=== PATIENT | male | born 1945 | race Caucasian/White ===

== ENCOUNTER 2017-12-28 14:44 | Emergency (ER) | payer MEDICARE, OTHER ==
--- NOTE | 2017-12-28 17:02 | ER Document Report ---
ED Medical Screen (RME) - General Chief Complaint: Bloody Stools Stated Complaint: POSSIBLE BLOOD IN STOOL Time Seen by Provider: 12/28/17 17:01 Notes: Patient states that he takes Xarelto and aspirin has noticed black tarry stool for the last couple of days. Some mild dizziness. States he had this 1 time before and received a colonoscopy. He states they are unable to find the source of bleeding at that time. He denies any abdominal pain. TRAVEL OUTSIDE OF THE [place] IN LAST 30 DAYS: No - Related Data Allergies/Adverse Reactions: clopidogrel bisulfate [From Plavix] Allergy (Verified 12/28/17 14:54) Past Medical History - Social History Chew tobacco use (# tins/day): No Frequency of alcohol use: None Drug Abuse: None - Past Medical History Cardiac Medical History: Reports: Hx Atrial Fibrillation, Hx Coronary Artery Disease, Hx Heart Attack - possible, Hx Hypercholesterolemia, Hx Hypertension, Hx Peripheral Vascular Disease Neurological Medical History: Denies: Hx Seizures Renal/ Medical History: Denies: Hx Peritoneal Dialysis Past Surgical History: Reports: Hx Cholecystectomy - bypass, heart valve, left leg artery, Hx Coronary Artery Bypass Graft, Hx Coronary Stent, Hx Valve Replacement - Immunizations Hx Diphtheria, Pertussis, Tetanus Vaccination: Yes Physical Exam - Vital signs Vitals: Temp Pulse Resp BP Pulse Ox 97.8 F 62 20 116/63 100 12/28/17 15:12 12/28/17 15:12 12/28/17 15:12 12/28/17 15:12 12/28/17 15:12 Course - Vital Signs Vital signs: Temp Pulse Resp BP Pulse Ox 97.8 F 62 20 116/63 100 12/28/17 15:12 12/28/17 15:12 12/28/17 15:12 12/28/17 15:12 12/28/17 15:12
[2017-12-28 17:34] LABS: ABSOLUTE EOSINOPHILS # (AUTO) 0.1 10^3/uL (0.0-0.6); ABSOLUTE LYMPHOCYTES (AUTO) 0.8 10^3/uL (0.5-4.7); ABSOLUTE MONOCYTES (AUTO) 0.6 10^3/uL (0.1-1.4); ABSOLUTE NEUT (AUTO) 3.3 10^3/uL (1.7-8.2); BASOPHILS % (AUTO) 0.6 % (0-2); EOSINOPHILS % (AUTO) 1.8 % (0-6); HEMATOCRIT 32.3 % (37.9-51.0); HEMOGLOBIN 10.9 g/dL (13.5-17.0); LYMPHOCYTES % (AUTO) 16.7 % (13-45); MEAN CORPUSCULAR HEMOGLOBIN 32.4 pg (27.0-33.4); MEAN CORPUSCULAR HGB CONC 33.9 g/dL (32.0-36.0); MEAN CORPUSCULAR VOLUME 96 fl (80-97); MONOCYTES % (AUTO) 12.7 % (3-13); PLATELET COUNT 155 10^3/uL (150-450); RED BLOOD COUNT 3.37 10^6/uL (4.35-5.55); RED CELL DISTRIBUTION WIDTH 14.4 % (11.5-14.0); SEGMENTED NEUTROPHILS % (AUTO) 68.2 % (42-78); TOTAL CELLS COUNTED % (AUTO) 100 %; WHITE BLOOD COUNT 4.8 10^3/uL (4.0-10.5)
[2017-12-28 17:37] LABS: APPEARANCE,URINE CLEAR; BILIRUBIN,URINE NEGATIVE (NEGATIVE); COLOR,URINE STRAW; GLUCOSE, URINE NEGATIVE (NEGATIVE); KETONES,URINE NEGATIVE (NEGATIVE); LEUKOCYTE ESTERASE,URINE NEGATIVE (NEGATIVE); NITRITE,URINE NEGATIVE (NEGATIVE); PROTEIN,URINE NEGATIVE (NEGATIVE); URINE SPECIFIC GRAVITY 1.003; UROBILINOGEN,URINE NEGATIVE mg/dL (<2.0)
[2017-12-28 17:50] LABS: ALANINE AMINOTRANSFERASE 36 U/L (21-72); ALBUMIN 4.2 g/dL (3.5-5.0); ALKALINE PHOSPHATASE 52 U/L (38-126); ANION GAP 11 (5-19); ASPARTATE AMINO TRANSFERASE 22 U/L (17-59); BILIRUBIN,DIRECT 0.4 mg/dL (0.0-0.4); BILIRUBIN,TOTAL 0.7 mg/dL (0.2-1.3); BLOOD UREA NITROGEN 32 mg/dL (7-20); CALCIUM 9.7 mg/dL (8.4-10.2); CARBON DIOXIDE 25 mmol/L (22-30); CHLORIDE 101 mmol/L (98-107); GLUCOSE 71 mg/dL (75-110); POTASSIUM 4.6 mmol/L (3.6-5.0); SODIUM 136.6 mmol/L (137-145); TOTAL PROTEIN 6.8 g/dL (6.3-8.2)
--- NOTE | 2017-12-28 20:01 | ER Document Report ---
ED General - General Chief Complaint: Bloody Stools Stated Complaint: POSSIBLE BLOOD IN STOOL Time Seen by Provider: 12/28/17 17:01 Notes: Patient is a 72 year old male with a past medical history of atrial fibrillation , hypertension, and prior upper GI bleed, currently anticoagulated chronically on rivaroxaban who presents with 3-4 days of melanotic stools. Patient reports that each time he has gone to the bathroom he has noted that it appears like tar. He states this is similar to when he had an upper GI bleed in the past. He states on that instance 3 or 4 years ago they were unable to locate the source of the bleeding despite colonoscopy, endoscopy, and tagged red blood cell study at [facility]. He has not had a recurrence of symptoms since that time. He has been taking all medications as prescribed which does include both rivaroxaban and aspirin. He denies any abdominal pain, hematemesis , or vomiting. Nothing seemed to improve or worsen his symptoms. He notes that he has had some mild exertional fatigue and dyspnea for approximately 1 week and does feel that the symptoms may be correlated. He denies any current shortness of breath, chest pain, headache, neck pain or altered mental status. He has not seen his primary care doctor regarding these concerns. TRAVEL OUTSIDE OF THE [place] IN LAST 30 DAYS: No - Related Data Allergies/Adverse Reactions: clopidogrel bisulfate [From Plavix] Allergy (Verified 12/28/17 14:54) Past Medical History - General Information source: Patient - Social History Smoking Status: Former Smoker Chew tobacco use (# tins/day): No Frequency of alcohol use: None Drug Abuse: None Lives with: Spouse/Significant other Family History: Reviewed & Not Pertinent Patient has suicidal ideation: No Patient has homicidal ideation: No - Past Medical History Cardiac Medical History: Reports: Hx Atrial Fibrillation, Hx Coronary Artery Disease, Hx Heart Attack - possible, Hx Hypercholesterolemia, Hx Hypertension, Hx Peripheral Vascular Disease Neurological Medical History: Denies: Hx Seizures Renal/ Medical History: Denies: Hx Peritoneal Dialysis Past Surgical History: Reports: Hx Cholecystectomy - bypass, heart valve, left leg artery, Hx Coronary Artery Bypass Graft, Hx Coronary Stent, Hx Valve Replacement - Immunizations Hx Diphtheria, Pertussis, Tetanus Vaccination: Yes Hx Pneumococcal Vaccination: 10/19/12 Review of Systems - Review of Systems Notes: Constitutional: Negative for fever. HENT: Negative for sore throat. Eyes: Negative for visual changes. Cardiovascular: Negative for chest pain. Respiratory: Positive for intermittent shortness of breath Gastrointestinal: Positive for melanotic stools Genitourinary: Negative for dysuria. Musculoskeletal: Negative for back pain. Skin: Negative for rash. Neurological: Negative for headaches, weakness or numbness. 10 point ROS negative except as marked above and in HPI. Physical Exam - Vital signs Vitals: Temp Pulse Resp BP Pulse Ox 97.8 F 62 20 116/63 100 12/28/17 15:12 12/28/17 15:12 12/28/17 15:12 12/28/17 15:12 12/28/17 15:12 Interpretation: Normal Notes: PHYSICAL EXAMINATION: GENERAL: Well-appearing, well-nourished and in no acute distress. HEAD: Atraumatic, normocephalic. EYES: Pupils equal round and reactive to light, extraocular movements intact, sclera anicteric, conjunctiva are normal. ENT: nares patent, oropharynx clear without exudates. Moist mucous membranes. NECK: Normal range of motion, supple without lymphadenopathy LUNGS: Breath sounds clear to auscultation bilaterally and equal. No wheezes rales or rhonchi. HEART: Regular rate and rhythm without murmurs ABDOMEN: Soft, nontender, normoactive bowel sounds. No guarding, no rebound. No masses appreciated. Rectal: Melanotic stool. No masses or lesions. EXTREMITIES: Normal range of motion, no pitting or edema. No cyanosis. NEUROLOGICAL: No focal neurological deficits. Moves all extremities spontaneously and on command. PSYCH: Normal mood, normal affect. SKIN: Warm, Dry, normal turgor, no rashes or lesions noted. Course - Re-evaluation Re-evalutation: 12/28/17 19:59 Patient presents with signs and symptoms consistent with an upper GI bleed as he does have melanotic stool here in the emergency department that is guaiac positive as well as mild anemia with hemoglobin of 10.3. Hemodynamically within normal limits, otherwise well in appearance and in no acute distress. No hematemesis. However given the patient is anemic, symptomatic from his anemia, has active melanotic stool the emergency department and is anticoagulated on a factor Xa inhibitor, he will require transfer for a an upper endoscopy. I contacted [facility] for transfer and awaiting callback. 12/28/17 20:42 Patient has been accepted for transfer by Dr.Alan Monson at [facility]. Remains hemodynamically within normal limits. Awaiting transfer. 12/28/17 21:27 Patient continues to do well, vitals remain within acceptable limits. Patient has a bed and we are waiting for transfer. - Vital Signs Vital signs: Temp Pulse Resp BP Pulse Ox 97.8 F 62 14 178/68 H 96 12/28/17 15:12 12/28/17 15:12 12/28/17 21:09 12/28/17 21:09 12/28/17 21:09 - Laboratory Result Diagrams: 12/28/17 17:10 12/28/17 17:10 Laboratory results interpreted by me: 12/28/17 12/28/17 17:10 17:10 RBC 3.37 L Hgb 10.9 L Hct 32.3 L RDW 14.4 H Sodium 136.6 L BUN 32 H Est GFR (Non-Af Amer) 59 L Glucose 71 L Discharge - Discharge Clinical Impression: Upper GI bleed, Chronic anticoagulation, Acute blood loss anemia Condition: Fair Disposition: [facility]
[2017-12-28 20:38] VITALS: BP 178/68
== END 2017-12-28 22:40 | disposition short-term general hospital (02) ==
LOC: ER 14:44
DX: K92.2 Gastrointestinal hemorrhage, unspecified (principal); D68.318 Other hemorrhagic disorder due to intrinsic circulating anticoagulants, antibodies, or inhibitors; D62 Acute posthemorrhagic anemia; I48.91 Unspecified atrial fibrillation; I10 Essential (primary) hypertension
CPT/HCPCS: 36415; 80053; 81001; 82272; 85025; 99285

== ENCOUNTER 2020-06-16 08:55 | Inpatient (IN) | payer MEDICARE, OTHER ==
[2020-06-16 09:31] LABS: HEMATOCRIT 31.5 % (37.9-51.0); HEMOGLOBIN 10.7 g/dL (13.5-17.0); MEAN CORPUSCULAR HEMOGLOBIN 28.5 pg (27.0-33.4); MEAN CORPUSCULAR VOLUME 84 fl (80-97); PLATELET COUNT 297 10^3/uL (150-450); RED BLOOD COUNT 3.75 10^6/uL (4.35-5.55); RED CELL DISTRIBUTION WIDTH 15.8 % (11.5-14.0); WHITE BLOOD COUNT 12.1 10^3/uL (4.0-10.5)
[2020-06-16] MEDS ORDERED: DILTIAZEM HCL/D5W 125 MG/125 ML RTUINJ IV PRN (09:31)
[2020-06-16] MEDS ORDERED: ACETAMINOPHEN 325 MG TABLET PO ONE (09:36)
--- NOTE | 2020-06-16 09:37 | RADIOLOGY REPORT (SQ) ---
EXAM DESCRIPTION: CHEST SINGLE VIEW IMAGES COMPLETED DATE/TIME: 06/16/2020 9:20 am REASON FOR STUDY: SOB COMPARISON: Two-view chest 10/07/2014 EXAM PARAMETERS: NUMBER OF VIEWS: One view. TECHNIQUE: Single frontal radiographic view of the chest acquired. RADIATION DOSE: NA LIMITATIONS: None. FINDINGS: LUNGS AND PLEURA: Diffuse airspace disease is seen throughout the right lung worrisome for pneumonia. Trace pleural effusion may be present along the right lateral costophrenic sulcus. No right-sided pneumothorax. Left lung well inflated and clear. No left pleural effusion or pneumothorax. Calcified granuloma left medial lung base unchanged from 2014. MEDIASTINUM AND HILAR STRUCTURES: Right hilum not well seen HEART AND VASCULAR STRUCTURES: Post sternotomy for CABG. Left atrial appendage clip. No cardiomegal y BONES: No acute findings. HARDWARE: Dorsal column stimulator electrodes over the lower thoracic spine OTHER: No other significant finding. IMPRESSION: Diffuse right-sided lung parenchymal consolidation with trace right pleural effusion. F indings are worrisome for pneumonia. TECHNICAL DOCUMENTATION: JOB ID: [id number] 2010 [employer]- All Rights Reserved Reading location - IP/workstation name: [email or web address]
[2020-06-16 09:39] LABS: ALBUMIN 2.6 g/dL (3.5-5.0); ALKALINE PHOSPHATASE 144 U/L (38-126); ANION GAP 11 (5-19); ASPARTATE AMINO TRANSFERASE 107 U/L (17-59); BILIRUBIN,DIRECT 2.8 mg/dL (0.0-0.4); BILIRUBIN,TOTAL 3.8 mg/dL (0.2-1.3); BLOOD UREA NITROGEN 63 mg/dL (7-20); CALCIUM 8.2 mg/dL (8.4-10.2); CARBON DIOXIDE 26 mmol/L (22-30); CHLORIDE 94 mmol/L (98-107); GLUCOSE 79 mg/dL (75-110); POTASSIUM 3.7 mmol/L (3.6-5.0); TOTAL PROTEIN 5.4 g/dL (6.3-8.2)
[2020-06-16] MEDS ORDERED: LEVOFLOXACIN 750 MG/D5W RTU 750 MG/150 ML RTUPB IV ONE (09:39)
[2020-06-16] MEDS ORDERED: NORMAL SALINE 1000 ML 1,000 ML IV ONE ×2 (09:50→10:14)
--- NOTE | 2020-06-16 09:50 | ER Document Report ---
Entered by DARLYN FRAGA SCRIBE 06/16/20929 Acting as scribe for:EDUARDO REYNOSO MD ED Respiratory Problem - General Chief Complaint: Breathing Difficulty Stated Complaint: DIFFICULTY BREATHING Time Seen by Provider: 06/16/20 09:17 Information source: Patient Notes: This 75 year old male patient presents to the emergency department today with complaints of shortness of breath for one week. Patient has had a cough and he states he has been coughing up blood. Patient is hypoxic here with a pulse ox of 88% on 6L via nasal cannula. Patient has an extensive cardiopulmonary history with diagnoses of atrial fibrillation, coronary artery disease, possible [place]. Hypertension. Hyperlipid emia. Peripheral vascular disease. COPD. Coronary artery bypass grafting, coronary artery stenting, possible heart valve replacement. Patient reports he has had thoracentesis 3 times at [facility], he does not remember which side of the chest this was done on. TRAVEL OUTSIDE OF THE [place] IN LAST 30 DAYS: No - HPI Patient complains to provider of: Cough, Short of breath Onset: Last week Duration: Worse/persistent Cough: Productive Sputum color: Red (blood) - Related Data Allergies/Adverse Reactions: aspirin Allergy (Verified 06/16/20 09:14) clopidogrel bisulfate [From Plavix] Allergy (Verified 06/16/20 09:14) Past Medical History - General Information source: Patient - Social History Smoking Status: Former Smoker Cigarette use (# per day): No Chew tobacco use (# tins/day): No Smoking Education Provided: No Frequency of alcohol use: None Drug Abuse: None Lives with: Family Family History: Reviewed & Not Pertinent - Past Medical History Cardiac Medical History: Reports: Hx Atrial Fibrillation, Hx Coronary Artery Disease, Hx Heart Attack - possible, Hx Hypercholesterolemia, Hx Hypertension, Hx Peripheral Vascular Disease Neurological Medical History: Denies: Hx Seizures Renal/ Medical History: Denies: Hx Peritoneal Dialysis Past Surgical History: Reports: Hx Cholecystectomy - bypass, heart valve, left leg artery, Hx Coronary Artery Bypass Graft, Hx Coronary Stent, Hx Valve Replacement - Immunizations Hx Diphtheria, Pertussis, Tetanus Vaccination: Yes Hx Pneumococcal Vaccination: 10/19/12 Review of Systems - Review of Systems Constitutional: Weakness EENT: No symptoms reported Cardiovascular: No symptoms reported Respiratory: See HPI, Cough, Hemoptysis, Short of breath Gastrointestinal: Poor appetite, Poor fluid intake Genitourinary: No symptoms reported Musculoskeletal: No symptoms reported Skin: No symptoms reported Hematologic/Lymphatic: No symptoms reported Neurological/Psychological: No symptoms reported -: Yes All other systems reviewed and negative Physical Exam - Vital signs Vitals: Resp Pulse Ox 22 H 93 06/16/20 08:56 06/16/20 08:56 - Notes Notes: Physical Exam: General: Alert, appears short of breath. HEENT: Normocephalic. Atraumatic. PERRL. Extraocular movements intact. Oropharynx clear. Neck: Supple. Non-tender. Respiratory: Severe respiratory distress, tachypneic, retracting. Clear breath sounds on the left, right sided nearly absent breath sounds. Cardiovascular: Regular rate and rhythm. Abdominal: Normal Inspection. Non-tender. No distension. Normal Bowel Sounds. Back: No gross abnormalities. Extremities: Moves all four extremities. Upper extremities: Normal inspection. Normal ROM. Lower extremities: Minimal RLE edema, no LLE edema. Normal ROM. Neurological: Normal cognition. AAOx4. Normal speech. Psychological: Normal affect. Normal Mood. Skin: Warm. Dry. Normal color. Course - Re-evaluation Re-evalutation: 06/16/20 09:38 While speaking with the patient trying to get more history, he coughed up some very thick yellow-turcios sputum into an emesis bag and this was collected for analysis. 06/16/20 09:57 Patient was placed on BiPAP, and he seems to be tolerating this quite well. Previously he was pulling off his nonrebreather mask. At this time his oxygen saturation is up to 95%, heart rate is 140 and fluid bolus and Cardizem are being started at this time. He is also receiving IV antibiotics of Levaquin. He was also given Tylenol for his fever. 06/16/20 11:14 The patient was evaluated during the global COVID-19 pandemic and that diagnosis was suspected/considered upon their initial presentation. Their evaluation, treatment and testing was consistent with current guidelines for patients who present with complaints or symptoms that may be related to COVID-19. - Vital Signs Vital signs: Temp Pulse Resp BP Pulse Ox 98.7 F 79 30 H 115/79 97 06/16/20 10:56 06/16/20 14:29 06/16/20 14:29 06/16/20 14:00 06/16/20 14:29 - Laboratory Result Diagrams: 06/16/20 09:00 06/16/20 09:00 Laboratory results interpreted by me: 06/16/20 06/16/20 06/16/20 09:00 09:00 09:00 WBC 12.1 H RBC 3.75 L Hgb 10.7 L Hct 31.5 L RDW 15.8 H Seg Neuts % (Manual) 97 H Band Neutrophils % 2 L Lymphocytes % (Manual) 0 L Monocytes % (Manual) 1 L Abs Neuts (Manual) 12.0 H Abs Lymphs (Manual) 0.0 L Sodium 130.5 L Chloride 94 L BUN 63 H Creatinine 1.32 H Est GFR (MDRD) Non-Af 53 L Lactic Acid 2.3 H Calcium 8.2 L Ferritin Total Bilirubin 3.8 H Direct Bilirubin 2.8 H AST 107 H ALT 52 H Alkaline Phosphatase 144 H Lactate Dehydrogenase Total Protein 5.4 L Albumin 2.6 L 06/16/20 06/16/20 09:00 09:10 WBC RBC Hgb Hct RDW Seg Neuts % (Manual) Band Neutrophils % Lymphocytes % (Manual) Monocytes % (Manual) Abs Neuts (Manual) Abs Lymphs (Manual) Sodium Chloride BUN Creatinine Est GFR (MDRD) Non-Af Lactic Acid Calcium Ferritin 494.00 H Total Bilirubin Direct Bilirubin AST ALT Alkaline Phosphatase Lactate Dehydrogenase 318 H Total Protein Albumin - Diagnostic Test Radiology reviewed: Image reviewed, Reports reviewed - Chest x-ray shows diffuse right-sided lung parenchymal consolidation with trace pleural effusion. - EKG Interpretation by Me EKG shows normal: [place], Intervals, QRS Complexes, ST-T Waves Rate: Tachycardia - 171 Rhythm: A.Fib [place]/QRS: Left axis deviation When compared to previous EKG there are: Changes noted - Consults Dr. Rodriguez Time consulted: 09:27 Consulted provider: will come to ER Critical Care Note - Critical Care Note Total time excluding time spent on procedures (mins): 45 Comments: At least 45 minutes spent evaluating and treating this critically ill patient. Time was spent with exam, difficulty obtaining history. Reviewing recent and older medical records. Multiple interventions and reassessments for response. Phone calls to the ICU attending for evaluation and admission to the intensive care unit. The patient was extremely hypoxic, had near total consolidation of his right lung, had atrial fibrillation with a heart rate in the 1 50-1 60 range much of the time while he remained hypotensive, a little confused and resistant to keeping his BiPAP on. Discharge - Discharge Clinical Impression: Atrial fibrillation with rapid ventricular response, Hypoxia Pneumonia Qualifiers: Pneumonia type: due to unspecified organism Laterality: right Lung location: lower lobe of lung Qualified Code(s): J18.9 - Pneumonia, unspecified organism Fever Qualifiers: Fever type: unspecified Qualified Code(s): R50.9 - Fever, unspecified Hypotension Qualifiers: Hypotension type: unspecified hypotension type Qualified Code(s): I95.9 - Hypotension, unspecified Condition: Serious Disposition: ADMITTED INPATIENT Admitting Provider: Jennifer (Reconciliation Specialist) Unit Admitted: ICU I personally performed the services described in the documentation, reviewed and edited the documentation which was dictated to the scribe in my presence, and it accurately records my words and actions.
[2020-06-16 10:16] LABS: ABSOLUTE MONOCYTES # (MANUAL) 0.1 10^3/uL (0.1-1.4); BAND NEUTROPHILS % (MANUAL) 2 % (3-5); BASOPHILS % (MANUAL) 0 % (0-2); EOSINOPHILS % (MANUAL) 0 % (0-6); LYMPHOCYTES % (MANUAL) 0 % (13-45); MONOCYTES % (MANUAL) 1 % (3-13); SEGMENTED NEUTROPHILS % (MAN) 97 % (42-78); TOTAL CELLS COUNTED 100
[2020-06-16 10:17] LABS: ANISOCYTOSIS SLIGHT; OVALOCYTES SLIGHT; PLATELET COMMENT ADEQUATE
[2020-06-16 10:30] LABS: VENOUS BLOOD BASE EXCESS 1.6 mmol/L; VENOUS BLOOD HCO3 26.1 mmol/L (20-32); VENOUS BLOOD PCO2 40.8 mmHg (35-63); VENOUS BLOOD PH 7.42 (7.30-7.42)
[2020-06-16] MEDS ORDERED: LORAZEPAM INJ 2 MG/1 ML VIAL IV ONE (10:33)
[2020-06-16] MEDS ORDERED: GLUCAGON,HUMAN RECOMB 1 MG INJ SUBCUT PRN (13:10)
[2020-06-16] MEDS ORDERED: DEXTROSE 50%-WATER 25 GM/50 ML DISP.SYRIN IV PRN ×2 (13:10)
[2020-06-16] MEDS ORDERED: DEXTROSE 40% GEL 15 GM TUBE PO PRN ×2 (13:10)
[2020-06-16] MEDS ORDERED: DEXMEDETOMIDINE IN 0.9 % NACL 400 MCG/100 ML RTUPB IV ONE (13:10)
[2020-06-16] MEDS: DEXMEDETOMIDINE IN 0.9 % NACL 400 MCG/100 ML RTUPB IV PRN (13:20)
[2020-06-16 13:48] LABS: ARTERIAL BLOOD BASE EXCESS -2.1 mmol/L; ARTERIAL BLOOD FIO2 50%; ARTERIAL BLOOD H2CO3 0.86 mmol/L (1.05-1.35); ARTERIAL BLOOD HCO3 20.5 mmol/L (20-24); ARTERIAL BLOOD O2 SATURATION 97.5 % (94-98); ARTERIAL BLOOD PCO2 28.5 mmHg (35-45); ARTERIAL BLOOD PH 7.48 (7.35-7.45); ARTERIAL BLOOD PO2 89.7 mmHg (80-100); ARTERIAL BLOOD TOTAL CO2 21.4 mmol/L (23-27)
[2020-06-16] MEDS: IPRATROPIUM/ALBUTEROL 0.5-2.5 MG/3 ML AMPUL NEB SCH ×2 (14:29→20:43)
[2020-06-16 14:46] LABS: APPEARANCE,URINE CLOUDY; BILIRUBIN,URINE NEGATIVE (NEGATIVE); COLOR,URINE AMBER; GLUCOSE, URINE NEGATIVE (NEGATIVE); KETONES,URINE NEGATIVE (NEGATIVE); LEUKOCYTE ESTERASE,URINE NEGATIVE (NEGATIVE); NITRITE,URINE NEGATIVE (NEGATIVE); PROTEIN,URINE 100 mg/dL (NEGATIVE); URINE SPECIFIC GRAVITY 1.019
[2020-06-16] MEDS: ENOXAPARIN SODIUM INJ 40 MG/0.4 ML DISP.SYRIN SUBCUT SCH (18:12)
[2020-06-16] MEDS: DILTIAZEM HCL 240 MG CAPSULE.CR PO SCH (18:13)
--- NOTE | 2020-06-16 19:00 | EKG REPORT ---
SEVERITY:- ABNORMAL ECG - SUPRAVENTRICULAR TACHYCARDIA LAD, CONSIDER LAFB OR INFERIOR INFARCT : Confirmed by: Elis Terry MD 16-Jun-2020 19:00:23
[2020-06-16 20:31] LABS: ARTERIAL BLOOD H2CO3 0.81 mmol/L (1.05-1.35); ARTERIAL BLOOD HCO3 20.2 mmol/L (20-24); ARTERIAL BLOOD O2 SATURATION 91.9 % (94-98); ARTERIAL BLOOD PCO2 26.9 mmHg (35-45); ARTERIAL BLOOD PH 7.49 (7.35-7.45); ARTERIAL BLOOD PO2 55.9 mmHg (80-100); ARTERIAL BLOOD TOTAL CO2 21.1 mmol/L (23-27)
[2020-06-16 20:32] LABS: ARTERIAL BLOOD FIO2 50%
[2020-06-16] MEDS ORDERED: FUROSEMIDE INJ/PF 40 MG/4 ML SDV IV ONE (21:55)
[2020-06-16] MEDS ORDERED: FUROSEMIDE INJ/PF 40 MG/4 ML SDV ONE (22:01)
[2020-06-16] MEDS: GUAIFENESIN 600 MG TABLET.SA PO SCH (22:08)
[2020-06-16] MEDS: DULOXETINE HCL 30 MG CAPSULE.DR PO SCH (22:08)
[2020-06-16] MEDS: DOXAZOSIN MESYLATE 2 MG TABLET PO SCH (22:09)
[2020-06-16] MEDS: HYDRALAZINE HCL 50 MG TABLET PO SCH (22:09)
[2020-06-16] MEDS: METHYLPREDNISOLONE INJ 40 MG/1 ML SDV IV SCH (22:09)
[2020-06-17] MEDS: IPRATROPIUM/ALBUTEROL 0.5-2.5 MG/3 ML AMPUL NEB SCH ×6 (01:00→21:10)
[2020-06-17] MEDS: PANTOPRAZOLE SODIUM 40 MG TABLET.DR PO SCH (05:18)
[2020-06-17] MEDS: HYDRALAZINE HCL 50 MG TABLET PO SCH ×3 (05:18→21:54)
[2020-06-17] MEDS: DULOXETINE HCL 30 MG CAPSULE.DR PO SCH ×3 (05:18→21:54)
[2020-06-17 06:49] LABS: HEMATOCRIT 25.8 % (37.9-51.0); HEMOGLOBIN 8.8 g/dL (13.5-17.0); MEAN CORPUSCULAR HEMOGLOBIN 28.5 pg (27.0-33.4); MEAN CORPUSCULAR HGB CONC 33.9 g/dL (32.0-36.0); MEAN CORPUSCULAR VOLUME 84 fl (80-97); PLATELET COUNT 174 10^3/uL (150-450); RED BLOOD COUNT 3.08 10^6/uL (4.35-5.55); RED CELL DISTRIBUTION WIDTH 15.8 % (11.5-14.0); WHITE BLOOD COUNT 5.3 10^3/uL (4.0-10.5)
[2020-06-17 08:02] LABS: ANION GAP 14 (5-19); BLOOD UREA NITROGEN 65 mg/dL (7-20); CALCIUM 7.8 mg/dL (8.4-10.2); CARBON DIOXIDE 20 mmol/L (22-30); CHLORIDE 100 mmol/L (98-107); CHOLESTEROL 51.72 mg/dL (0-200); GLUCOSE 96 mg/dL (75-110); POTASSIUM 3.4 mmol/L (3.6-5.0); TRIGLYCERIDES 112 mg/dL (<150)
[2020-06-17 08:23] LABS: DIRECT LDL < 30 mg/dL (<100)
[2020-06-17 08:40] LABS: ABSOLUTE LYMPHOCYTES# (MANUAL) 0.1 10^3/uL (0.5-4.7); BAND NEUTROPHILS % (MANUAL) 4 % (3-5); BASOPHILS % (MANUAL) 0 % (0-2); EOSINOPHILS % (MANUAL) 0 % (0-6); LYMPHOCYTES % (MANUAL) 2 % (13-45); MONOCYTES % (MANUAL) 0 % (3-13); SEGMENTED NEUTROPHILS % (MAN) 94 % (42-78); TOTAL CELLS COUNTED 100
[2020-06-17 08:41] LABS: ANISOCYTOSIS 1+; BURR CELLS 1+; OVALOCYTES 1+; PLATELET COMMENT ADEQUATE
[2020-06-17] MEDS: DEXMEDETOMIDINE IN 0.9 % NACL 400 MCG/100 ML RTUPB IV PRN (08:55)
[2020-06-17] MEDS: GUAIFENESIN 600 MG TABLET.SA PO SCH ×2 (09:35→21:54)
[2020-06-17] MEDS: FUROSEMIDE 20 MG TABLET PO SCH (09:36)
[2020-06-17] MEDS: METHYLPREDNISOLONE INJ 40 MG/1 ML SDV IV SCH ×2 (09:36→21:54)
[2020-06-17] MEDS: DILTIAZEM HCL 240 MG CAPSULE.CR PO SCH (09:36)
[2020-06-17] MEDS: ENOXAPARIN SODIUM INJ 40 MG/0.4 ML DISP.SYRIN SUBCUT SCH (09:37)
[2020-06-17] MEDS: LEVOFLOXACIN 750 MG/D5W RTU 750 MG/150 ML RTUPB IV SCH (09:37)
--- NOTE | 2020-06-17 09:53 | CRITICAL CARE ADMISSION REPORT ---
HPI Date:: 06/16/20 Time:: 11:00 Reason for ICU Reason:: Pneumonia, Acute respiratory Failure Admission Date/Time & PCP: Admission Date/Time: 06/16/20 10:18 Primary Care Provider: TRENA RICKS MD HPI: this is a75 yo male who has been ill for several weeks now. He has had dyspnea which has been increasing for at least the past week.He has a cough productive of yellow-green sputum. He has a long cardiac history. he s/p CABG, [place] procedure, clipping of fhte left atrial appendage and AVR. Apparently, he has had reaccumulating fluid in his right chest which has necssitated recurrent thoracenteses (3) thelast of kyrie was in 04/07 at [facility], operated by [facility]. When he presented to the ED today he was quite tachypneic and using accessory resp. mm. On 6 liters 02 his 02 sat was about 88-90%. He couldf not speak in full sentences. He was placed on BIPAP. CXR showed a massive right sided infiltrate involving mainly the RLL. I saw the patient in the ED and decided to admit himdirectly to the ICU. I thought he was atrisk for further deteriration and eventual intubation. Plan Summary: Assessment and Plan:: The patient appears to have an extensive right sided pneumonia. We are trying to get sputum c and S for diagnostic purposes. The patient has been placed on BiPAP for his acute respiratory failure. If his clinical conditiondeclines he may need intuabtion. He has been placed empirically on leavaquin at this time. No recent travel. No known exposure to Covid. he was tested as as an outpt. but we do not have the resuts of the Covid test so we will repeat it. Past Medical History Cardiac Medical History: Reports: Atrial Fibrillation, Coronary Artery Disease, Myocardial Infarction - possible, Hyperlipidema, Hypertension, Peripheral Vascular Disease Pulmonary Medical History: Reports: Chronic Obstructive Pulmonary Disease (COPD) Neurological Medical History: Denies: Seizures Past Surgical History Past Surgical History: Reports: Cholecystectomy - bypass, heart valve, left leg artery, Coronary Artery Bypass Graft, Coronary Stent, Valve Replacement Social/Family History - Social History Smoking Status: Former Smoker - Medication/Allergies Home Medications: Albuterol Sulfate [Proair Hfa Inhalation Aerosol 8.5 gm Mdi] 1 puff IH Q4HP PRN 06/16/20 Alfuzosin HCl [Alfuzosin HCl ER] 10 mg PO DAILY 06/16/20 Cetirizine HCl [Zyrtec 10 mg Tablet] 10 mg PO DAILY 06/16/20 Diltiazem HCl [Cardizem Cd 240 mg Capsule.cr] 1 cap.sr PO DAILY 06/16/20 Duloxetine HCl [Cymbalta] 30 mg PO DAILY 06/16/20 Fluticasone/Salmeterol [Advair 100-50 Diskus 14 Dose/Diskus] 1 inh IH Q12 06/16/20 Furosemide [Lasix 20 mg Tablet] 20 mg PO DAILY 06/16/20 Hydralazine HCl [Apresoline 50 mg Tablet] 50 mg PO BID 06/16/20 Pantoprazole Sodium [Protonix [address] Tablet] 40 mg PO DAILY 06/16/20 Allergies/Adverse Reactions: aspirin Allergy (Verified 06/16/20 09:14) clopidogrel bisulfate [From Plavix] Allergy (Verified 06/16/20 09:14) Review of Systems ROS unobtainable: Other Constitutional: PRESENT: fever(s). ABSENT: anorexia, headache(s) Eyes: ABSENT: visual disturbances Ears: ABSENT: hearing changes Cardiovascular: PRESENT: dyspnea on exertion, orthropnea. ABSENT: chest pain Respiratory: PRESENT: dyspnea, hemoptysis, sputum, other - Rare bloody sputum. Gastrointestinal: ABSENT: abdominal pain, bloating, coffee ground emesis, diarrhea, nausea Genitourinary: PRESENT: difficulty urinating Integumentary: ABSENT: diaphoresis, erythema Neurological: ABSENT: abnormal speech, confusion, convulsions, focal weakness, frequent falls Psychiatric: PRESENT: anxiety Physical Exam Vital Signs: Temp Pulse Resp BP Pulse Ox 98.7 F 79 30 H 115/79 97 06/16/20 10:56 06/16/20 14:29 06/16/20 14:29 06/16/20 14:00 06/16/20 14:29 Intake & Output 06/15/20 06/16/20 06/17/20 06:59 06:59 06:59 Intake Total 2150 Balance 2150 Weight 75.7 kg Weight/Height Weight 75.7 kg Height 5 ft 7 in General appearance: PRESENT: other - In mpderae resp. distress, accessory mm use and tachpynea. Head exam: PRESENT: atraumatic, normocephalic Eye exam: PRESENT: EOMI, PERRLA Ear exam: PRESENT: normal external ear exam Mouth exam: PRESENT: dry mucosa Neck exam: ABSENT: lymphadenopathy, meningismus, tenderness Respiratory exam: PRESENT: accessory muscle use, tachypnea, other - Rales right chest. ABSENT: chest wall tenderness Cardiovascular exam: PRESENT: RRR Pulses: PRESENT: +1 pedal pulses bilateral, +2 pedal pulses bilateral GI/Abdominal exam: PRESENT: normal bowel sounds, soft. ABSENT: ascites, guarding, tenderness Rectal exam: ABSENT: deferred Gentrourinary exam: PRESENT: other - Inflatable penile pump Extremities exam: ABSENT: calf tenderness, clubbing Musculoskeletal exam: PRESENT: ambulatory Neurological exam: PRESENT: alert, altered, oriented to person, oriented to place, oriented to time, reflexes normal Psychiatric exam: PRESENT: anxious Laboratory/Radiographs Laboratory Results: 06/16/20 09:00 06/16/20 09:00 06/16/20 06/16/20 06/16/20 09:00 09:00 09:00 WBC 12.1 H RBC 3.75 L Hgb 10.7 L Hct 31.5 L MCV 84 MCH 28.5 MCHC 34.0 RDW 15.8 H Plt Count 297 Seg Neutrophils % Not Reportable Carbonic Acid HCO3/H2CO3 Ratio ABG pH ABG pCO2 ABG pO2 ABG HCO3 ABG O2 Saturation ABG Base Excess VBG pH 7.42 VBG pCO2 40.8 VBG HCO3 26.1 VBG Base Excess 1.6 FiO2 Sodium 130.5 L Potassium 3.7 Chloride 94 L Carbon Dioxide 26 Anion Gap 11 BUN 63 H Creatinine 1.32 H Est GFR ( Amer) > 60 Glucose 79 Lactic Acid Calcium 8.2 L Ferritin Total Bilirubin 3.8 H AST 107 H Alkaline Phosphatase 144 H Total Protein 5.4 L Albumin 2.6 L Urine Color Urine Appearance Urine pH Ur Specific Mcgrath Urine Protein Urine Glucose (UA) Urine Ketones Urine Blood Urine Nitrite Ur Leukocyte Esterase Urine WBC (Auto) Urine RBC (Auto) 06/16/20 06/16/20 06/16/20 09:00 09:10 13:35 WBC RBC Hgb Hct MCV MCH MCHC RDW Plt Count Seg Neutrophils % Carbonic Acid 0.86 L HCO3/H2CO3 Ratio 23:1 ABG pH 7.48 H ABG pCO2 28.5 L ABG pO2 89.7 ABG HCO3 20.5 ABG O2 Saturation 97.5 ABG Base Excess -2.1 VBG pH VBG pCO2 VBG HCO3 VBG Base Excess FiO2 50% Sodium Potassium Chloride Carbon Dioxide Anion Gap BUN Creatinine Est GFR ( Amer) Glucose Lactic Acid 2.3 H Calcium Ferritin 494.00 H Total Bilirubin AST Alkaline Phosphatase Total Protein Albumin Urine Color Urine Appearance Urine pH Ur Specific Mcgrath Urine Protein Urine Glucose (UA) Urine Ketones Urine Blood Urine Nitrite Ur Leukocyte Esterase Urine WBC (Auto) Urine RBC (Auto) 06/16/20 14:25 WBC RBC Hgb Hct MCV MCH MCHC RDW Plt Count Seg Neutrophils % Carbonic Acid HCO3/H2CO3 Ratio ABG pH ABG pCO2 ABG pO2 ABG HCO3 ABG O2 Saturation ABG Base Excess VBG pH VBG pCO2 VBG HCO3 VBG Base Excess FiO2 Sodium Potassium Chloride Carbon Dioxide Anion Gap BUN Creatinine Est GFR ( Amer) Glucose Lactic Acid Calcium Ferritin Total Bilirubin AST Alkaline Phosphatase Total Protein Albumin Urine Color CANDELARIO Urine Appearance CLOUDY Urine pH 5.0 Ur Specific Mcgrath 1.019 Urine Protein 100 H Urine Glucose (UA) NEGATIVE Urine Ketones NEGATIVE Urine Blood SMALL H Urine Nitrite NEGATIVE Ur Leukocyte Esterase NEGATIVE Urine WBC (Auto) 3 Urine RBC (Auto) 1 06/16/20 06/16/20 09:10 09:10 Creatine Kinase 63 Troponin I 0.096 Impressions: Chest X-Ray 06/16/20 08:56 IMPRESSION: Diffuse right-sided lung parenchymal consolidation with trace right pleural effusion. Findings are worrisome for pneumonia. Critical Time Critical Time (minutes): 45 -: The care of a critically ill patient is dynamic. This note represents a static moment in the admission process. Orders and treatments may be given simultaneously and urgently, and time is not independent sales representative of the treatment process. This patient requires Critical Care secondary to life threatening organ or limb dysfunction. Without Critical Care services, the patient is at risk for increased mortality and morbidity.
--- NOTE | 2020-06-17 10:09 | PDOC CRITICAL CARE PROG REPORT ---
General Date:: 06/17/20 ICU Day:: 2 Hospital Day:: 2 Events in the past 12 to 24 Hours:: the patient is awake. At times he has gotten a bit agitated. He is on a nasal cannula presently. His 02 sats are in the mid 90s. His heart rate [id number] and he is in Atrial fib. Repeat CXR is pending.The patient is on Levaquin. He appears much more comfortable presently. Reason for ICU Addmission:: Pneumonia, Acute respiratory Failure Physical Exam Vital Signs: Temp Pulse Resp BP Pulse Ox 98.0 F 102 H 30 H 99/63 L 96 06/17/20 05:59 06/17/20 08:16 06/17/20 08:16 06/17/20 08:00 06/17/20 08:22 Intake & Output 06/16/20 06/17/20 06/18/20 06:59 06:59 06:59 Intake Total 2403 74 Output Total 1570 200 Balance 833 -126 Weight 74.8 kg Weight/Height Weight 74.8 kg Height 5 ft 7 in General appearance: PRESENT: cooperative, mild distress, thin Head exam: PRESENT: atraumatic, normocephalic Eye exam: PRESENT: conjunctiva pink, EOMI, PERRLA Ear exam: PRESENT: normal external ear exam Neck exam: PRESENT: full ROM. ABSENT: meningismus, tenderness Respiratory exam: PRESENT: rales - Rales appreciatedon the right side., unlabored. ABSENT: accessory muscle use Cardiovascular exam: PRESENT: irregular rhythm, RRR Pulses: PRESENT: normal dorsalis pedis pul GI/Abdominal exam: PRESENT: soft. ABSENT: distended, tenderness Rectal exam: PRESENT: deferred Gentrourinary exam: ABSENT: ecchymosis, erythema Extremities exam: ABSENT: calf tenderness, clubbing, joint swelling Neurological exam: PRESENT: alert, awake Psychiatric exam: PRESENT: anxious - The patient gets anxious at times Laboratory/Radiographs Laboratory Results: 06/17/20 06:28 06/17/20 06:28 06/16/20 06/16/20 06/16/20 09:00 09:00 09:00 WBC 12.1 H RBC 3.75 L Hgb 10.7 L Hct 31.5 L MCV 84 MCH 28.5 MCHC 34.0 RDW 15.8 H Plt Count 297 Seg Neutrophils % Not Reportable Carbonic Acid HCO3/H2CO3 Ratio ABG pH ABG pCO2 ABG pO2 ABG HCO3 ABG O2 Saturation ABG Base Excess VBG pH 7.42 VBG pCO2 40.8 VBG HCO3 26.1 VBG Base Excess 1.6 FiO2 Sodium Potassium Chloride Carbon Dioxide Anion Gap BUN Creatinine Est GFR ( Amer) Glucose Lactic Acid 2.3 H Calcium Magnesium Ferritin Triglycerides Cholesterol LDL Cholesterol Direct VLDL Cholesterol HDL Cholesterol TSH Urine Color Urine Appearance Urine pH Ur Specific [place] Urine Protein Urine Glucose (UA) Urine Ketones Urine Blood Urine Nitrite Ur Leukocyte Esterase Urine WBC (Auto) Urine RBC (Auto) 06/16/20 06/16/20 06/16/20 09:10 13:35 14:25 WBC RBC Hgb Hct MCV MCH MCHC RDW Plt Count Seg Neutrophils % Carbonic Acid 0.86 L HCO3/H2CO3 Ratio 23:1 ABG pH 7.48 H ABG pCO2 28.5 L ABG pO2 89.7 ABG HCO3 20.5 ABG O2 Saturation 97.5 ABG Base Excess -2.1 VBG pH VBG pCO2 VBG HCO3 VBG Base Excess FiO2 50% Sodium Potassium Chloride Carbon Dioxide Anion Gap BUN Creatinine Est GFR ( Amer) Glucose Lactic Acid Calcium Magnesium Ferritin 494.00 H Triglycerides Cholesterol LDL Cholesterol Direct VLDL Cholesterol HDL Cholesterol TSH Urine Color CANDELARIO Urine Appearance CLOUDY Urine pH 5.0 Ur Specific [place] 1.019 Urine Protein 100 H Urine Glucose (UA) NEGATIVE Urine Ketones NEGATIVE Urine Blood SMALL H Urine Nitrite NEGATIVE Ur Leukocyte Esterase NEGATIVE Urine WBC (Auto) 3 Urine RBC (Auto) 1 06/16/20 06/17/20 06/17/20 20:15 06:28 06:28 WBC 5.3 RBC 3.08 L Hgb 8.8 L Hct 25.8 L MCV 84 MCH 28.5 MCHC 33.9 RDW 15.8 H Plt Count 174 Seg Neutrophils % Not Reportable Carbonic Acid 0.81 L HCO3/H2CO3 Ratio 24:1 ABG pH 7.49 H ABG pCO2 26.9 L ABG pO2 55.9 L ABG HCO3 20.2 ABG O2 Saturation 91.9 L ABG Base Excess -2.0 VBG pH VBG pCO2 VBG HCO3 VBG Base Excess FiO2 50% Sodium 133.7 L Potassium 3.4 L Chloride 100 Carbon Dioxide 20 L Anion Gap 14 BUN 65 H Creatinine 1.25 Est GFR ( Amer) > 60 Glucose 96 Lactic Acid Calcium 7.8 L Magnesium 2.4 H Ferritin Triglycerides 112 Cholesterol 51.72 LDL Cholesterol Direct < 30 VLDL Cholesterol 22.0 HDL Cholesterol 9 L TSH Urine Color Urine Appearance Urine pH Ur Specific [place] Urine Protein Urine Glucose (UA) Urine Ketones Urine Blood Urine Nitrite Ur Leukocyte Esterase Urine WBC (Auto) Urine RBC (Auto) 06/17/20 06:28 WBC RBC Hgb Hct MCV MCH MCHC RDW Plt Count Seg Neutrophils % Carbonic Acid HCO3/H2CO3 Ratio ABG pH ABG pCO2 ABG pO2 ABG HCO3 ABG O2 Saturation ABG Base Excess VBG pH VBG pCO2 VBG HCO3 VBG Base Excess FiO2 Sodium Potassium Chloride Carbon Dioxide Anion Gap BUN Creatinine Est GFR ( Amer) Glucose Lactic Acid Calcium Magnesium Ferritin Triglycerides Cholesterol LDL Cholesterol Direct VLDL Cholesterol HDL Cholesterol TSH 0.45 L Urine Color Urine Appearance Urine pH Ur Specific [place] Urine Protein Urine Glucose (UA) Urine Ketones Urine Blood Urine Nitrite Ur Leukocyte Esterase Urine WBC (Auto) Urine RBC (Auto) 06/16/20 06/16/20 06/16/20 09:10 09:10 14:10 Creatine Kinase 63 Troponin I 0.096 0.083 NT-Pro-B Natriuret Pep 06/16/20 06/17/20 06/17/20 18:27 02:34 06:28 Creatine Kinase Troponin I 0.064 0.067 NT-Pro-B Natriuret Pep 4080 H Impressions: Chest X-Ray 06/16/20 08:56 IMPRESSION: Diffuse right-sided lung parenchymal consolidation with trace right pleural effusion. Findings are worrisome for pneumonia. Assessment and Plan - Diagnosis (1) Atrial fibrillation with rapid ventricular response Is this a current diagnosis for this admission?: Yes Plan: His heart rate is fairly well controlled presently. He is on po Cardizem for HR control. (2) Pneumonia Qualifiers: Pneumonia type: due to unspecified organism Laterality: right Lung location: lower lobe of lung Qualified Code(s): J18.9 - Pneumonia, unspecified organism Is this a current diagnosis for this admission?: Yes Plan: The patient has an extensive pneumonia. Sputum Ca and s requested. Sputum is yellow-green. Reoeat CXR pending. Resp. status has improved oin the past [address] ordered a CT scan of the chest for tomorrow. He is on a regimen of Levaquin (3) Coronary artery disease Is this a current diagnosis for this admission?: No Plan: The patient has known cardiac diseases. Denoes chest pain. His serial trops were fairly low. (4) COPD (chronic obstructive pulmonary disease) Qualifiers: COPD type: COPD with acute lower respiratory infection Qualified Code(s): J44.0 - Chronic obstructive pulmonary disease with (acute) lower respiratory infection Is this a current diagnosis for this admission?: Yes Plan: I suspect thepatient has significant COPD history. He isgetting steroids and HHN. His 02 needs are limited. Critical Time Critical Time (minutes): 25 Level of Care: ICU -: 1. The care of a critical patient is a dynamic process. This note is a sales representative adding machines synopsis but static in nature. The timeframe for treatments given in order is not necessarily the actual time these treatments may have been done. 2. This patient requires critical care secondary to ongoing requirements for therapy not offered or safe outside the critical care environment. Transfer to a lower level of care will result in altered life or limb morbidity and mortality. 3. Multidisciplinary rounds completed. 4. ABCDE bundle addressed.
--- NOTE | 2020-06-17 12:24 | RADIOLOGY REPORT (SQ) ---
EXAM DESCRIPTION: CHEST SINGLE VIEW IMAGES COMPLETED DATE/TIME: 06/17/2020 11:15 am REASON FOR STUDY: extensive right sided pneumonia COMPARISON: Chest film 10/15/2014, 06/16/2020 EXAM PARAMETERS: NUMBER OF VIEWS: One view. TECHNIQUE: Single frontal radiographic view of the chest acquired. RADIATION DOSE: NA LIMITATIONS: Portable film, lordotic technique FINDINGS: LUNGS AND PLEURA: Increasing opacification of the right hemithorax from increasing pleural fluid/ airspace. There is also further volume loss of the right lung, with slight mediastinal shift towards the right. Left lung well inflated and grossly clear. No left pleural. No pneumothorax MEDIASTINUM AND HILAR STRUCTURES: Further volume loss/collapse right lung with shift of mediastinal s tructures towards the right HEART AND VASCULAR STRUCTURES: Old sternotomy for CABG. No gross cardiomegaly BONES: No acute findings. HARDWARE: None in the chest. OTHER: No other significant finding. IMPRESSION: Progression of right lung volume loss and consolidation, increasing pleural effusion on the right TECHNICAL DOCUMENTATION: JOB ID: [id number] 2010 [employer]- All Rights Reserved Reading location - IP/workstation name: [email or web address]
[2020-06-17] MEDS: DOXAZOSIN MESYLATE 2 MG TABLET PO SCH (21:54)
[2020-06-18] MEDS: IPRATROPIUM/ALBUTEROL 0.5-2.5 MG/3 ML AMPUL NEB SCH ×6 (00:56→20:42)
[2020-06-18] MEDS ORDERED: LORAZEPAM INJ 2 MG/1 ML VIAL IV PRN (01:33)
[2020-06-18 04:41] LABS: HEMATOCRIT 26.3 % (37.9-51.0); HEMOGLOBIN 9.2 g/dL (13.5-17.0); MEAN CORPUSCULAR HEMOGLOBIN 28.8 pg (27.0-33.4); MEAN CORPUSCULAR HGB CONC 34.8 g/dL (32.0-36.0); MEAN CORPUSCULAR VOLUME 83 fl (80-97); PLATELET COUNT 236 10^3/uL (150-450); RED BLOOD COUNT 3.18 10^6/uL (4.35-5.55); RED CELL DISTRIBUTION WIDTH 15.9 % (11.5-14.0); WHITE BLOOD COUNT 10.2 10^3/uL (4.0-10.5)
[2020-06-18 04:50] LABS: ANION GAP 14 (5-19); BLOOD UREA NITROGEN 68 mg/dL (7-20); CALCIUM 8.2 mg/dL (8.4-10.2); CARBON DIOXIDE 20 mmol/L (22-30); CHLORIDE 97 mmol/L (98-107); GLUCOSE 102 mg/dL (75-110); POTASSIUM 3.6 mmol/L (3.6-5.0)
[2020-06-18 05:02] LABS: ABSOLUTE MONOCYTES # (MANUAL) 0.6 10^3/uL (0.1-1.4); ANISOCYTOSIS 1+; BAND NEUTROPHILS % (MANUAL) 1 % (3-5); BASOPHILS % (MANUAL) 0 % (0-2); EOSINOPHILS % (MANUAL) 0 % (0-6); LYMPHOCYTES % (MANUAL) 0 % (13-45); MONOCYTES % (MANUAL) 6 % (3-13); POLYCHROMASIA 1+; SEGMENTED NEUTROPHILS % (MAN) 93 % (42-78); TOTAL CELLS COUNTED 100
[2020-06-18 05:03] LABS: PLATELET COMMENT ADEQUATE
[2020-06-18] MEDS: DULOXETINE HCL 30 MG CAPSULE.DR PO SCH ×3 (05:23→21:35)
[2020-06-18] MEDS: HYDRALAZINE HCL 50 MG TABLET PO SCH ×3 (05:23→21:34)
[2020-06-18] MEDS: PANTOPRAZOLE SODIUM 40 MG TABLET.DR PO SCH (05:24)
[2020-06-18] MEDS ORDERED: HALOPERIDOL LACTATE INJ 5 MG/1 ML VIAL IM ONE (06:45)
--- NOTE | 2020-06-18 08:40 | RADIOLOGY REPORT (SQ) ---
EXAM DESCRIPTION: CT CHEST WITHOUT IMAGES COMPLETED DATE/TIME: 06/18/2020 7:51 am REASON FOR STUDY: Extensive right sided pneumonia COMPARISON: 06/17/2020 TECHNIQUE: CT scan performed of the chest without intravenous contrast. Images reviewed with lung, soft tissue and bone windows. Reconstructed coronal and sagittal MPR images reviewed. All images st ored on PACS. All CT scanners at this facility use dose modulation, iterative reconstruction, and/or weight based d osing when appropriate to reduce radiation dose to as low as reasonably achievable (ALARA). [facility]: Dose Right [facility]: CareDose [facility]: Dose Right [facility]: Teradose 4D [facility]: Smart BIOCUREX RADIATION DOSE: CT Rad equipment meets quality standard of care and radiation dose reduction techniq ues were employed. CTDIvol: 13.5 mGy. DLP: 558 mGy-cm. mGy. LIMITATIONS: No technical limitations. FINDINGS: LUNGS AND PLEURA: Diffuse multifocal patchy consolidation in ground-glass attenuation invo lving the right upper, middle and lower lobes. Minimal additional ground-glass attenuation within th e left upper lobe along the major fissure. There is associated [id number] right-sided subpulmo ruby effusion. No pneumothorax. HILAR AND MEDIASTINAL STRUCTURES: Mediastinal and likely right hilar adenopathy. For reference large st right paratracheal node measures 1.7 cm in short axis (series 2, image 20). No discrete left eduardo r adenopathy identified. HEART AND VASCULAR STRUCTURES: Cardiomegaly. Three-vessel coronary atherosclerosis. Calcifications at the aortic and mitral annulus. Aortic valvular prostheses. Left atrial appendage device present. No significant pericardial effusion. UPPER ABDOMEN: No acute findings. Vascular calcifications. THYROID AND OTHER SOFT TISSUES: No masses. No adenopathy. BONES: No acute bony abnormality. No suspicious osseous lesions. Evidence of prior sternotomy. HARDWARE: Sternotomy hardware. Aortic valvular prostheses. Atrial appendage clip. Spinal stimulato r device. OTHER: No other significant findings. IMPRESSION: 1. Multifocal airspace disease throughout the right hemithorax compatible with pneumoni a. [id number] associated subpulmonic effusion. 2. Cardiomegaly and coronary atherosclerosis. TECHNICAL DOCUMENTATION: JOB ID: [id number] Quality ID # [id number]: Final reports with documentation of one or more dose reduction techniques (e.g., Au tomated exposure control, adjustment of the mA and/or kV according to patient size, use of iterative reconstruction technique) 2010 [employer]- All Rights Reserved Reading location - IP/workstation name: [email or web address]
[2020-06-18 09:16] LABS: ARTERIAL BLOOD BASE EXCESS -3.3 mmol/L; ARTERIAL BLOOD H2CO3 1.21 mmol/L (1.05-1.35); ARTERIAL BLOOD HCO3 21.9 mmol/L (20-24); ARTERIAL BLOOD O2 SATURATION 89.8 % (94-98); ARTERIAL BLOOD PCO2 40.2 mmHg (35-45); ARTERIAL BLOOD PH 7.36 (7.35-7.45); ARTERIAL BLOOD PO2 59.5 mmHg (80-100); ARTERIAL BLOOD TOTAL CO2 23.2 mmol/L (23-27)
[2020-06-18 09:22] LABS: ARTERIAL BLOOD FIO2 6L
[2020-06-18] MEDS ORDERED: METOPROLOL TARTRATE PF/INJ 5 MG/5 ML SDV IV PRN (09:51)
[2020-06-18] MEDS: HALOPERIDOL LACTATE INJ 5 MG/1 ML VIAL IV PRN ×2 (10:10→20:12)
[2020-06-18] MEDS: METHYLPREDNISOLONE INJ 40 MG/1 ML SDV IV SCH ×2 (10:10→21:32)
[2020-06-18] MEDS: LEVOFLOXACIN 750 MG/D5W RTU 750 MG/150 ML RTUPB IV SCH (10:10)
[2020-06-18] MEDS: ENOXAPARIN SODIUM INJ 40 MG/0.4 ML DISP.SYRIN SUBCUT SCH (10:11)
[2020-06-18] MEDS: METOPROLOL SUCCINATE 50 MG TAB.SR.24H PO SCH ×2 (10:25→21:36)
[2020-06-18] MEDS: FUROSEMIDE 20 MG TABLET PO SCH (10:26)
[2020-06-18] MEDS: GUAIFENESIN 600 MG TABLET.SA PO SCH ×2 (10:26→21:36)
[2020-06-18] MEDS: DILTIAZEM HCL 240 MG CAPSULE.CR PO SCH ×3 (10:26→12:09)
--- NOTE | 2020-06-18 13:36 | PDOC CRITICAL CARE PROG REPORT ---
General Date:: 06/18/20 Hospital Day:: 2 Resuscitation Status: Full Code Events in the past 12 to 24 Hours:: Transferred to 3rd floor. On bipap, agitated. Review of systems relevant to events:: Pulmonary, neurological. Reason for ICU Addmission:: On bipap, HR variable. - Medications: Medications reviewed and adjusted accordingly: Yes Vasopressors:: None Sedation:: None Physical Exam Vital Signs: Temp Pulse Resp BP Pulse Ox 97.6 F 115 H 32 H 99/62 L 95 06/18/20 12:44 06/18/20 12:44 06/18/20 12:44 06/18/20 12:44 06/18/20 12:00 Intake & Output 06/17/20 06/18/20 06/19/20 06:59 06:59 06:59 Intake Total 2403 537 150 Output Total 1570 1600 Balance 833 -1063 150 Weight 74.8 kg 74.8 kg Weight/Height Weight 74.8 kg Height 5 ft 7 in General appearance: PRESENT: no acute distress, thin Head exam: PRESENT: atraumatic, normocephalic Eye exam: PRESENT: conjunctiva pink, EOMI, PERRLA. ABSENT: scleral icterus Ear exam: PRESENT: normal external ear exam Mouth exam: PRESENT: moist, tongue midline Respiratory exam: PRESENT: decreased breath sounds, rhonchi, tachypnea, unlabored Cardiovascular exam: PRESENT: RRR, tachycardia. ABSENT: diastolic murmur, rubs, systolic murmur GI/Abdominal exam: PRESENT: normal bowel sounds, soft. ABSENT: distended, guarding, mass, organolmegaly, rebound, tenderness Rectal exam: PRESENT: deferred Extremities exam: PRESENT: full ROM. ABSENT: calf tenderness, clubbing, pedal edema Musculoskeletal exam: PRESENT: normal inspection Neurological exam: PRESENT: altered, awake Psychiatric exam: PRESENT: agitated - At times. Skin exam: PRESENT: dry, intact, warm. ABSENT: cyanosis, rash Tubes/Lines: PRESENT: Other - Bipap Laboratory/Radiographs Laboratory Results: 06/18/20 04:12 06/18/20 04:12 06/18/20 06/18/20 06/18/20 04:12 04:12 09:03 WBC 10.2 RBC 3.18 L Hgb 9.2 L Hct 26.3 L MCV 83 MCH 28.8 MCHC 34.8 RDW 15.9 H Plt Count 236 Seg Neutrophils % Not Reportable Carbonic Acid 1.21 HCO3/H2CO3 Ratio 18:1 ABG pH 7.36 ABG pCO2 40.2 ABG pO2 59.5 L ABG HCO3 21.9 ABG O2 Saturation 89.8 L ABG Base Excess -3.3 FiO2 6L Sodium 130.7 L Potassium 3.6 Chloride 97 L Carbon Dioxide 20 L Anion Gap 14 BUN 68 H Creatinine 1.07 Est GFR ( Amer) > 60 Glucose 102 Calcium 8.2 L 06/16/20 06/16/20 06/16/20 09:10 09:10 14:10 Creatine Kinase 63 Troponin I 0.096 0.083 NT-Pro-B Natriuret Pep 06/16/20 06/17/20 06/17/20 18:27 02:34 06:28 Creatine Kinase Troponin I 0.064 0.067 NT-Pro-B Natriuret Pep 4080 H Impressions: Chest X-Ray 06/17/20 00:00 IMPRESSION: Progression of right lung volume loss and consolidation, increasing pleural effusion on the right Chest CT 06/18/20 09:00 IMPRESSION: 1. Multifocal airspace disease throughout the right hemithorax compatible with pneumonia. [id number] associated subpulmonic effusion. 2. Cardiomegaly and coronary atherosclerosis. EKG: Atrial fibrillation with a variable rate and occassional PVCs. All labs, radiographs, diagnostic studies and EKGs were personally reviewed: Yes In addition, reports of radiographic and diagnostic studies were read: Yes Assessment and Plan - Diagnosis (1) Pneumonia Qualifiers: Pneumonia type: due to unspecified organism Laterality: right Lung location: lower lobe of lung Qualified Code(s): J18.9 - Pneumonia, unspecified organism Is this a current diagnosis for this admission?: Yes Plan: This is his main problem. He is growing GPC and GNR in his sputum gram stain making me think this is a PNA, perhaps with diplococcos for which levequin is likely fine. he GNR is indicative of aspiration, which could explain the half-way course and frequent thoracenteses. I would broaden coverage to include gram negative coverage and consider a formal speech staudy when he is off bipap and he is not delirious. Keep NPO for now. (2) Atrial fibrillation with rapid ventricular response Is this a current diagnosis for this admission?: Yes Plan: I agree with PRN beta-blockade. (3) COPD (chronic obstructive pulmonary disease) Qualifiers: COPD type: COPD with acute lower respiratory infection Qualified Code(s): J44.0 - Chronic obstructive pulmonary disease with (acute) lower respiratory infection Is this a current diagnosis for this admission?: Yes Plan: This is not helping his pulmonary issue but he is not currently wheezing. Plan Summary: He does not at this point need an ICU level of care. Should he further decompensate and need intubation, reconsult. Critical Time Critical Time (minutes): 35 Level of Care: IMCU Anticipated discharge: SNF Anticipated DC Timeframe: Other -: 1. The care of a critical patient is a dynamic process. This note is a pharmaceutical representative synopsis but static in nature. The timeframe for treatments given in order is not necessarily the actual time these treatments may have been done. 2. This patient requires critical care secondary to ongoing requirements for therapy not offered or safe outside the critical care environment. Transfer to a lower level of care will result in altered life or limb morbidity and mortality. 3. Multidisciplinary rounds completed. 4. ABCDE bundle addressed.
[2020-06-18] MEDS ORDERED: MEROPENEM 1 GM VIAL IV SCH (14:00)
[2020-06-18] MEDS ORDERED: IPRATROPIUM/ALBUTEROL 0.5-2.5 MG/3 ML AMPUL NEB PRN (15:38)
--- NOTE | 2020-06-18 15:40 | PDOC PROGRESS REPORT ---
Subjective Subjective:: Patient admitted for acute respiratory failure, pneumonia, chronic A. fib with acute RVR. Transferred out of ICU overnight 06/17. Patient was previously on a diltiazem and Precedex drip which were discontinued prior to transfer. Patient became acutely agitated frequently and heart rate ronni to the 140s to 120s sustained. Haldol helped with agitation momentarily but did not have a sustained effect. Ativan made agitation worse. Respiratory failure worsened as well and patient was started on BiPAP. He began pulling his BiPAP off and desaturating and was put in restraints. Heart rate briefly improved with IV me toprolol, unfortunately patient unable to take oral rate control meds while using BiPAP. Cardiology consulted. Critical care consulted to reevaluate the patient. CT scan of chest done which showed some pleural effusion possibly loculated pneumonia on the right. Radiology consulted for chest tube and fluid analysis labs were ordered along with cultures. General surgery consulted and the case was discussed with them in a stated they would like IR to perform chest tube and they would manage the chest tube thereafter. Patient cannot articulate any complaints due to agitation and using BiPAP. Troponin was positive x2 but flat, blood cultures negative, BNP up to 4000, COVID negative, sodium a bit lower at 131. Reason For Visit: PNEUMONIA, ATRIAL FIBRILLATION WITH RAPID Physical Exam Vital Signs: Temp Pulse Resp BP Pulse Ox 97.6 F 115 H 32 H 99/62 L 95 06/18/20 12:44 06/18/20 12:44 06/18/20 12:44 06/18/20 12:44 06/18/20 12:00 Intake & Output 06/17/20 06/18/20 06/19/20 06:59 06:59 06:59 Intake Total 2403 537 150 Output Total 1570 1600 Balance 833 -1063 150 Weight 74.8 kg 74.8 kg General appearance: PRESENT: no acute distress, well-developed, well-nourished Head exam: PRESENT: atraumatic, normocephalic Eye exam: PRESENT: conjunctiva pink Mouth exam: PRESENT: moist Respiratory exam: PRESENT: crackles, rales, rhonchi, tachypnea. ABSENT: wheezes Cardiovascular exam: PRESENT: irregular rhythm, tachycardia. ABSENT: diastolic murmur, systolic murmur GI/Abdominal exam: PRESENT: normal bowel sounds, soft. ABSENT: distended, guarding, mass, organolmegaly, rebound, tenderness Neurological exam: PRESENT: alert, awake. ABSENT: oriented to person, oriented to place, oriented to time, oriented to situation Psychiatric exam: PRESENT: agitated Skin exam: PRESENT: dry, intact, warm Results Laboratory Results: 06/18/20 04:12 06/18/20 04:12 06/18/20 06/18/20 06/18/20 04:12 04:12 09:03 WBC 10.2 RBC 3.18 L Hgb 9.2 L Hct 26.3 L MCV 83 MCH 28.8 MCHC 34.8 RDW 15.9 H Plt Count 236 Seg Neutrophils % Not Reportable Carbonic Acid 1.21 HCO3/H2CO3 Ratio 18:1 ABG pH 7.36 ABG pCO2 40.2 ABG pO2 59.5 L ABG HCO3 21.9 ABG O2 Saturation 89.8 L ABG Base Excess -3.3 FiO2 6L Sodium 130.7 L Potassium 3.6 Chloride 97 L Carbon Dioxide 20 L Anion Gap 14 BUN 68 H Creatinine 1.07 Est GFR ( Amer) > 60 Glucose 102 Calcium 8.2 L 06/16/20 09:31 Sputum Gram Stain - Final 06/16/20 09:31 Sputum Sputum Culture - Final NORMAL SARAH 06/16/20 06/16/20 06/16/20 09:10 09:10 14:10 Creatine Kinase 63 Troponin I 0.096 0.083 NT-Pro-B Natriuret Pep 06/16/20 06/17/20 06/17/20 18:27 02:34 06:28 Creatine Kinase Troponin I 0.064 0.067 NT-Pro-B Natriuret Pep 4080 H Impressions: Chest X-Ray 06/17/20 00:00 IMPRESSION: Progression of right lung volume loss and consolidation, increasing pleural effusion on the right Chest CT 06/18/20 09:00 IMPRESSION: 1. Multifocal airspace disease throughout the right hemithorax compatible with pneumonia. [id number] associated subpulmonic effusion. 2. Cardiomegaly and coronary atherosclerosis. Assessment and Plan - Diagnosis (1) Pneumonia involving right lung Qualifiers: Pneumonia type: due to unspecified organism Lung location: unspecified part of lung Qualified Code(s): J18.9 - Pneumonia, unspecified organism Is this a current diagnosis for this admission?: Yes Plan: CT chest showed extensive pneumonia involving right lung with parapneumonic effusion IR consulted for chest tube placement Pleural fluid chemistry analysis and bacterial cultures and fungal cultures ordered General surgery consulted for chest tube management, discussed with them Broaden antibiotics to meropenem Respiratory culture pending Blood cultures negative (2) Atrial fibrillation with rapid ventricular response Is this a current diagnosis for this admission?: Yes Plan: Diltiazem p.o. and metoprolol p.o., unable to take these while using BiPAP and agitated IV as needed metoprolol for heart rate greater than 110 bpm Cardiology consult Echocardiogram (3) COPD (chronic obstructive pulmonary disease) Qualifiers: COPD type: COPD with acute lower respiratory infection Qualified Code(s): J44.0 - Chronic obstructive pulmonary disease with (acute) lower respiratory infection Is this a current diagnosis for this admission?: Yes Plan: In mild exacerbation Inhalers Bronchial hygiene Hold steroids for now Duo nebs PRN (4) Acute metabolic encephalopathy Is this a current diagnosis for this admission?: Yes Plan: Due to pneumonia and respiratory failure Treat underlying causes As needed Haldol - Time Time Spent with patient: 35 or more minutes Medications reviewed and adjusted accordingly: Yes Anticipated Discharge Disposition: [facility] Facility Anticipated Discharge Timeframe: within 72 hours - Inpatient Certification Based on my medical assessment, after consideration of the patient's comorbidities, presenting symptoms, or acuity I expect that the services needed warrant INPATIENT care.: Yes I certify that my determination is in accordance with my understanding of Medicare's requirements for reasonable and necessary INPATIENT services [42 CFR 412.3e].: Yes Medical Necessity: Significant Comorbidiites Make Outpatient Treatment Too Risky, Need Close Monitoring Due to Risk of Patient Decompensation, Need for Nebulizer Therapy and Monitoring of Response, Need for IV Antibiotics, Need for Surgery, Risk of Complication if Not Cared For in Hospital, Risk of Diagnosis Which Will Require Inpatient Eval/Care/Monitoring
[2020-06-18] MEDS ORDERED: DEXTROSE 50%-WATER 25 GM/50 ML DISP.SYRIN IV PRN ×2 (15:42)
[2020-06-18] MEDS ORDERED: DEXTROSE 40% GEL 15 GM TUBE PO PRN ×2 (15:42)
[2020-06-18] MEDS ORDERED: GLUCAGON,HUMAN RECOMB 1 MG INJ SUBCUT PRN (15:42)
[2020-06-18] MEDS: MEROPENEM 1 GM in NORMAL SALINE 50 ML IV SCH (16:39)
[2020-06-18 17:23] LABS: TOTAL PROTEIN 4.6 g/dL (6.3-8.2)
--- NOTE | 2020-06-18 18:51 | PDOC CONSULTATION ---
Consultation Consult Date: 06/18/20 Attending physician:: OLYA PUGH Provider Consulted: YOSI SOLORZANO Consult reason:: afib History of Present Illness Admission Date/PCP: 06/16/20 10:18 TRENA RICKS MD History of Present Illness: OUSMANE HOWELL is a 75 year old male who is consulted to our service for further evaluation of atrial fibrillation. The patient is on BiPAP and unable to answer questions therefore the following history is obtained from reviewing his inpatient chart. Unfortunately the patient cannot provide any details of his history however it includes CAD s/p CABG, atrial fibrillation s/p MAZE and LALY ligation, right pleural effusion s/p several thoracentesis at [facility] and COPD. He was admitted on JUN 07 for progressively worse dyspnea and sputum production and eventually diagnosed with a significant right sided pneumonia. In the ED he was noted to be in respiratory distress, BiPAP was started and he was admitted to the ICU as it was thought that he was at an elevated risk for intubation. In the ICU he had episodes of delirium and was combative. He eventually improved and his afib was well controlled. He was then transferred out of the ICU earlier today. Unfortunately, he became combative, developed more dyspnea, his BP decreased and has had episodes of rapid atrial fibrillation with rates between 110 and 120 bpm which worsens up to 140's when he is agitated and combative. Physical exam on JUN 07: GA: Pale, slightly obtunded, in mild respiratory distress, breathing at around 34 times per minute on BiPAP at 45% FIO2, only able to say one or two words at a time. NECK: difficult to evaluate for JVD. HEART: mildly tachycardic, no murmurs, irregularly irregular rhythm. LUNGS: diffuse ronchi in all handley. LE: no edema or cyanosis. Past Medical History Cardiac Medical History: Reports: Atrial Fibrillation, Coronary Artery Disease, Myocardial Infarction - possible, Hyperlipidema, Hypertension, Peripheral Vascular Disease Pulmonary Medical History: Reports: Chronic Obstructive Pulmonary Disease (COPD) Neurological Medical History: Denies: Seizures Psychiatric Medical History: Denies: Depression Past Surgical History Past Surgical History: Reports: Cholecystectomy - bypass, heart valve, left leg artery, Coronary Artery Bypass Graft, Coronary Stent, Valve Replacement Social History Lives with: Family Smoking Status: Former Smoker - Advance Directive Resuscitation Status: Full Code Family History Family History: Reviewed & Not Pertinent Parental Family History Reviewed: Yes Children Family History Reviewed: Yes Sibling(s) Family History Reviewed.: Yes Medication/Allergy Home Medications: Albuterol Sulfate [Proair Hfa Inhalation Aerosol 8.5 gm Mdi] 1 puff IH Q4HP PRN 06/16/20 Alfuzosin HCl [Alfuzosin HCl ER] 10 mg PO DAILY 06/16/20 Cetirizine HCl [Zyrtec 10 mg Tablet] 10 mg PO DAILY 06/16/20 Diltiazem HCl [Cardizem Cd 240 mg Capsule.cr] 1 cap.sr PO DAILY 06/16/20 Duloxetine HCl [Cymbalta] 30 mg PO DAILY 06/16/20 Fluticasone/Salmeterol [Advair 100-50 Diskus 14 Dose/Diskus] 1 inh IH Q12 06/16/20 Furosemide [Lasix 20 mg Tablet] 20 mg PO DAILY 06/16/20 Hydralazine HCl [Apresoline 50 mg Tablet] 50 mg PO BID 06/16/20 Pantoprazole Sodium [Protonix [address] Tablet] 40 mg PO DAILY 06/16/20 Allergies/Adverse Reactions: aspirin Allergy (Verified 06/16/20 09:14) clopidogrel bisulfate [From Plavix] Allergy (Verified 06/16/20 09:14) Physical Exam Vital Signs: Temp Pulse Resp BP Pulse Ox 97.6 F 114 H 32 H 99/62 L 93 06/18/20 12:44 06/18/20 15:56 06/18/20 15:56 06/18/20 12:44 06/18/20 15:56 Intake & Output 06/17/20 06/18/20 06/19/20 06:59 06:59 06:59 Intake Total 2403 537 150 Output Total 1570 1600 Balance 833 -1063 150 Weight 74.8 kg 74.8 kg Results Laboratory Results: 06/18/20 04:12 06/18/20 04:12 06/18/20 06/18/20 06/18/20 04:12 04:12 09:03 WBC 10.2 RBC 3.18 L Hgb 9.2 L Hct 26.3 L MCV 83 MCH 28.8 MCHC 34.8 RDW 15.9 H Plt Count 236 Seg Neutrophils % Not Reportable Carbonic Acid 1.21 HCO3/H2CO3 Ratio 18:1 ABG pH 7.36 ABG pCO2 40.2 ABG pO2 59.5 L ABG HCO3 21.9 ABG O2 Saturation 89.8 L ABG Base Excess -3.3 FiO2 6L Sodium 130.7 L Potassium 3.6 Chloride 97 L Carbon Dioxide 20 L Anion Gap 14 BUN 68 H Creatinine 1.07 Est GFR ( Amer) > 60 Glucose 102 Calcium 8.2 L 06/16/20 09:31 Sputum Gram Stain - Final 06/16/20 09:31 Sputum Sputum Culture - Final NORMAL SARAH 06/16/20 06/16/20 06/16/20 09:10 09:10 14:10 Creatine Kinase 63 Troponin I 0.096 0.083 NT-Pro-B Natriuret Pep 06/16/20 06/17/20 06/17/20 18:27 02:34 06:28 Creatine Kinase Troponin I 0.064 0.067 NT-Pro-B Natriuret Pep 4080 H Impressions: Chest X-Ray 06/17/20 00:00 IMPRESSION: Progression of right lung volume loss and consolidation, increasing pleural effusion on the right Chest CT 06/18/20 09:00 IMPRESSION: 1. Multifocal airspace disease throughout the right hemithorax compatible with pneumonia. [id number] associated subpulmonic effusion. 2. Cardiomegaly and coronary atherosclerosis. Assessment & Plan - Diagnosis (1) Atrial fibrillation with rapid ventricular response Is this a current diagnosis for this admission?: Yes Plan: The patient is critically sick with a severe pneumonia and pleural effusions. His rapid atrial fibrillation is secondary to the lack of rate controlling agents as he is NPO and mainly his critical illness. Of great concern is that his BP has been lower than in the past day or so which brings up the possibility of sepsis and/or bacteremia. At this point it is most critical to treat his pneu monia and possible early sepsis with the addition of rate controlling agents when he is able to tolerate PO. Recommendations: -Treat underlying critical illness. -Avoid CCB as his BP is already low. -Add anticoagulant of your choice given his [id number] score of 3.
[2020-06-18] MEDS: METOPROLOL TARTRATE PF/INJ 5 MG/5 ML SDV IV PRN (21:33)
[2020-06-18] MEDS: DOXAZOSIN MESYLATE 2 MG TABLET PO SCH (21:34)
[2020-06-19] MEDS: IPRATROPIUM/ALBUTEROL 0.5-2.5 MG/3 ML AMPUL NEB SCH ×6 (00:08→19:31)
[2020-06-19] MEDS: MEROPENEM 1 GM in NORMAL SALINE 50 ML IV SCH ×4 (00:32→22:07)
[2020-06-19] MEDS ORDERED: SCOPOLAMINE HYDROBROMIDE 1.5 MG PATCH.TD72 TD ONE (02:24)
[2020-06-19] MEDS ORDERED: MORPHINE SULFATE 10 MG/ML INJ IV ONE (02:27)
[2020-06-19] MEDS: METOPROLOL TARTRATE PF/INJ 5 MG/5 ML SDV IV PRN ×3 (02:43→15:06)
[2020-06-19] MEDS: HYDRALAZINE HCL 50 MG TABLET PO SCH (06:19)
[2020-06-19] MEDS: DULOXETINE HCL 30 MG CAPSULE.DR PO SCH ×3 (06:20→22:11)
[2020-06-19] MEDS: PANTOPRAZOLE SODIUM 40 MG TABLET.DR PO SCH (06:20)
[2020-06-19 06:59] LABS: HEMATOCRIT 25.5 % (37.9-51.0); HEMOGLOBIN 8.7 g/dL (13.5-17.0); MEAN CORPUSCULAR HEMOGLOBIN 28.5 pg (27.0-33.4); MEAN CORPUSCULAR HGB CONC 34.2 g/dL (32.0-36.0); MEAN CORPUSCULAR VOLUME 83 fl (80-97); PLATELET COUNT 187 10^3/uL (150-450); RED BLOOD COUNT 3.06 10^6/uL (4.35-5.55); WHITE BLOOD COUNT 6.7 10^3/uL (4.0-10.5)
[2020-06-19 07:11] LABS: ANION GAP 13 (5-19); BLOOD UREA NITROGEN 72 mg/dL (7-20); CALCIUM 8.3 mg/dL (8.4-10.2); CARBON DIOXIDE 22 mmol/L (22-30); CHLORIDE 102 mmol/L (98-107); GLUCOSE 99 mg/dL (75-110); POTASSIUM 3.5 mmol/L (3.6-5.0)
[2020-06-19 07:31] LABS: ABSOLUTE MONOCYTES # (MANUAL) 0.2 10^3/uL (0.1-1.4); ANISOCYTOSIS 1+; BASOPHILS % (MANUAL) 0 % (0-2); EOSINOPHILS % (MANUAL) 1 % (0-6); LYMPHOCYTES % (MANUAL) 0 % (13-45); MONOCYTES % (MANUAL) 3 % (3-13); PLATELET COMMENT ADEQUATE; PLATELET LARGE PRESENT; SEGMENTED NEUTROPHILS % (MAN) 96 % (42-78); TOTAL CELLS COUNTED 100
[2020-06-19 07:32] LABS: HYPOCHROMASIA SLIGHT; OVALOCYTES SLIGHT; POLYCHROMASIA SLIGHT
[2020-06-19] MEDS: FUROSEMIDE 20 MG TABLET PO SCH (09:01)
[2020-06-19] MEDS: METOPROLOL SUCCINATE 50 MG TAB.SR.24H PO SCH ×2 (09:01→22:12)
[2020-06-19] MEDS: GUAIFENESIN 600 MG TABLET.SA PO SCH ×2 (09:01→22:12)
[2020-06-19] MEDS: METHYLPREDNISOLONE INJ 40 MG/1 ML SDV IV SCH ×2 (09:07→22:11)
--- NOTE | 2020-06-19 09:20 | PDOC PROGRESS REPORT ---
Subjective Progress Note for:: 06/19/20 Subjective:: OUSMANE HOWELL is a 75 year old male who is consulted to our service for further evaluation of atrial fibrillation. The patient is on BiPAP and unable to answer questions therefore the following history is obtained from reviewing his inpatient chart. Unfortunately the patient cannot provide any details of his history however it includes CAD s/p CABG, atrial fibrillation s/p MAZE and LALY ligation, right pleural effusion s/p several thoracentesis at [facility] and COPD. He was admitted on JUN 07 for progressively worse dyspnea and sputum production and eventually diagnosed with a significant right sided pneumonia. In the ED he was noted to be in respiratory distress, BiPAP was started and he was admitted to the ICU as it was thought that he was at an elevated risk for intubation. In the ICU he had episodes of delirium and was c ombative. He eventually improved and his afib was well controlled. He was then transferred out of the ICU earlier today. Unfortunately, he became combative, developed more dyspnea, his BP decreased and has had episodes of rapid atrial fibrillation with rates between 110 and 120 bpm which worsens up to 140's when he is agitated and combative. 06/19/2020: The patient continued to be restless overnight and complaining of difficulties breathing. He is currently not on BiPAP but on a nasal cannula and had been n.p.o. as it appears that he had been aspirating. This morning he continues to be restless and complains of shortness of breath. His telemetry demonstrated recurrent episodes of wide-complex tachycardia that may represent true VT versus Slim's phenomena however given his history of coronary artery disease I am concerned about the possibility of true ventricular tachycardia. He is scheduled to undergo chest tube placement later today. Physical exam on JUL 08: GENERAL: Restless, tachypneic, looks older than stated age, looks chronically ill. HEENT: Normocephalic, atraumatic. Pupils equal. Sclerae anicteric. Oropharynx is dry. NECK: No JVD. No carotid bruits. LUNGS: Tachypneic, rhonchi in all pulmonary handley, decreased breath sounds bilaterally. CARDIOVASCULAR: Tachycardic, irregularly irregular rate and rhythm, normal S1 and S2 without murmurs, rubs, or gallops. PMI not displaced. EXTREMITIES: No edema, no cyanosis, no clubbing. +2 pulses femoral and pedal pulses bilaterally. SKIN: No lesions or rashes. MUSCULOSKELETAL: No chest tenderness to palpation. NEUROLOGIC: Nonfocal. No gross sensory or motor deficits bilateral upper or lower extremities. Reason For Visit: PNEUMONIA, ATRIAL FIBRILLATION WITH RAPID Physical Exam Vital Signs: Temp Pulse Resp BP Pulse Ox 97.5 F 113 H 26 H 90/49 L 94 06/19/20 02:59 06/19/20 04:09 06/19/20 04:09 06/19/20 02:59 06/19/20 04:09 Intake & Output 06/17/20 06/18/20 06/19/20 06:59 06:59 06:59 Intake Total 2403 537 220 Output Total 1570 1600 825 Balance 833 -1063 -605 Weight 74.8 kg 74.8 kg Results Laboratory Results: 06/18/20 04:12 06/18/20 04:12 06/18/20 06/18/20 09:03 16:27 Carbonic Acid 1.21 HCO3/H2CO3 Ratio 18:1 ABG pH 7.36 ABG pCO2 40.2 ABG pO2 59.5 L ABG HCO3 21.9 ABG O2 Saturation 89.8 L ABG Base Excess -3.3 FiO2 6L Total Protein 4.6 L 06/16/20 09:31 Sputum Gram Stain - Final 06/16/20 09:31 Sputum Sputum Culture - Final NORMAL SARAH 06/16/20 06/16/20 06/16/20 09:10 09:10 14:10 Creatine Kinase 63 Troponin I 0.096 0.083 NT-Pro-B Natriuret Pep 06/16/20 06/17/20 06/17/20 18:27 02:34 06:28 Creatine Kinase Troponin I 0.064 0.067 NT-Pro-B Natriuret Pep 4080 H Impressions: Chest X-Ray 06/17/20 00:00 IMPRESSION: Progression of right lung volume loss and consolidation, increasing pleural effusion on the right Chest CT 06/18/20 09:00 IMPRESSION: 1. Multifocal airspace disease throughout the right hemithorax compatible with pneumonia. [id number] associated subpulmonic effusion. 2. Cardiomegaly and coronary atherosclerosis. 06/18/20 04:12 06/18/20 04:12 MCV 83 fl (80-97) 06/18/20 04:12 MCH 28.8 pg (27.0-33.4) 06/18/20 04:12 MCHC 34.8 g/dL (32.0-36.0) 06/18/20 04:12 RDW 15.9 % (11.5-14.0) H 06/18/20 04:12 Seg Neutrophils % Not Reportable 06/18/20 04:12 Carbonic Acid 1.21 mmol/L (1.05-1.35) 06/18/20 09:03 HCO3/H2CO3 Ratio 18:1 06/18/20 09:03 ABG pH 7.36 (7.35-7.45) 06/18/20 09:03 ABG pCO2 40.2 mmHg (35-45) 06/18/20 09:03 ABG pO2 59.5 mmHg (80-100) L 06/18/20 09:03 ABG HCO3 21.9 mmol/L (20-24) 06/18/20 09:03 ABG O2 Saturation 89.8 % (94-98) L 06/18/20 09:03 ABG Base Excess -3.3 mmol/L 06/18/20 09:03 VBG pH 7.42 (7.30-7.42) 06/16/20 09:00 VBG pCO2 40.8 mmHg (35-63) 06/16/20 09:00 VBG HCO3 26.1 mmol/L (20-32) 06/16/20 09:00 VBG Base Excess 1.6 mmol/L 06/16/20 09:00 FiO2 6L 06/18/20 09:03 Chloride 97 mmol/L (98-107) L 06/18/20 04:12 Carbon Dioxide 20 mmol/L (22-30) L 06/18/20 04:12 Anion Gap 14 (5-19) 06/18/20 04:12 Est GFR ( Amer) > 60 (>60) 06/18/20 04:12 Glucose 102 mg/dL (75-110) 06/18/20 04:12 Lactic Acid 2.3 mmol/L (0.7-2.1) H 06/16/20 09:00 Calcium 8.2 mg/dL (8.4-10.2) L 06/18/20 04:12 Magnesium 2.4 mg/dL (1.6-2.3) H 06/17/20 06:28 Ferritin 494.00 ng/mL (17.9-464.0) H 06/16/20 09:10 Total Bilirubin 3.8 mg/dL (0.2-1.3) H 06/16/20 09:00 AST 107 U/L (17-59) H 06/16/20 09:00 Alkaline Phosphatase 144 U/L (38-126) H 06/16/20 09:00 Total Protein 4.6 g/dL (6.3-8.2) L 06/18/20 16:27 Albumin 2.6 g/dL (3.5-5.0) L 06/16/20 09:00 Triglycerides 112 mg/dL (<150) 06/17/20 06:28 Cholesterol 51.72 mg/dL (0-200) 06/17/20 06:28 LDL Cholesterol Direct < 30 mg/dL (<100) 06/17/20 06:28 VLDL Cholesterol 22.0 mg/dL (10-31) 06/17/20 06:28 HDL Cholesterol 9 mg/dL (>40) L 06/17/20 06:28 TSH 0.45 uIU/mL (0.47-4.68) L 06/17/20 06:28 Urine Color CANDELARIO 06/16/20 14:25 Urine Appearance CLOUDY 06/16/20 14:25 Urine pH 5.0 (5.0-9.0) 06/16/20 14:25 Ur Specific [place] 1.019 06/16/20 14:25 Urine Protein 100 mg/dL (NEGATIVE) H 06/16/20 14:25 Urine Glucose (UA) NEGATIVE mg/dL (NEGATIVE) 06/16/20 14:25 Urine Ketones NEGATIVE mg/dL (NEGATIVE) 06/16/20 14:25 Urine Blood SMALL (NEGATIVE) H 06/16/20 14:25 Urine Nitrite NEGATIVE (NEGATIVE) 06/16/20 14:25 Ur Leukocyte Esterase NEGATIVE (NEGATIVE) 06/16/20 14:25 Urine WBC (Auto) 3 /HPF 06/16/20 14:25 Urine RBC (Auto) 1 /HPF 06/16/20 14:25 08/29/20 09:31 Sputum Gram Stain - Final 06/16/20 09:31 Sputum Sputum Culture - Final NORMAL SARAH 06/16/20 06/16/20 06/16/20 09:10 09:10 14:10 Creatine Kinase 63 Troponin I 0.096 0.083 NT-Pro-B Natriuret Pep 06/16/20 06/17/20 06/17/20 18:27 02:34 06:28 Creatine Kinase Troponin I 0.064 0.067 NT-Pro-B Natriuret Pep 4080 H Current Medication List Generic Name Dose Route Start Last Admin Trade Name Freq PRN Reason Stop Dose Admin Albuterol/Ipratropium 3 ml 06/16/20 14:30 06/19/20 04:08 Duoneb 3 Ml Ampul NEB 07/16/20 14:29 3 ml RTQ4 HUNTER Administration Albuterol/Ipratropium 3 ml 06/18/20 15:38 Duoneb 3 Ml Ampul NEB 07/18/20 15:37 RTQ2HP PRN SHORTNESS OF BREATH Dextrose 12.5 gm 06/16/20 13:10 Dextrose Inj 50% Syringe (25 Gm/50 Ml) IV 07/16/20 13:09 PRN PRN FOR BG 50-69 IN ALERT PATIENT Protocol Dextrose 25 gm 06/16/20 13:10 Dextrose Inj 50% Syringe (25 Gm/50 Ml) IV 07/16/20 13:09 PRN PRN See Label Comments Protocol Dextrose 12.5 gm 06/18/20 15:42 Dextrose Inj 50% Syringe (25 Gm/50 Ml) IV 07/18/20 15:41 PRN PRN FOR BG 50-69 IN ALERT PATIENT Protocol Dextrose 25 gm 06/18/20 15:42 Dextrose Inj 50% Syringe (25 Gm/50 Ml) IV 07/18/20 15:41 PRN PRN See Label Comments Protocol Diltiazem HCl 240 mg 06/16/20 16:00 06/18/20 12:09 Cardizem Cd 240 Mg Capsule.Cr PO 07/16/20 15:59 Not Given DAILY [facility] Doxazosin Mesylate 2 mg 06/16/20 22:00 06/18/20 21:34 Cardura 2 Mg Tablet PO 07/16/20 21:59 Not Given QHS [facility] Duloxetine HCl 30 mg 06/16/20 22:00 06/18/20 21:35 Cymbalta 30 Mg Capsule.Dr PO 07/16/20 21:59 Not Given Q8 HUNTER Enoxaparin Sodium 40 mg 06/16/20 14:00 06/18/20 10:11 Lovenox Inj 40 Mg/0.4 Ml Disp.Syrin SUBCUT 07/16/20 13:59 40 mg DAILY HUNTER Administration Furosemide 20 mg 06/17/20 10:00 06/18/20 10:26 Lasix 20 Mg Tablet PO 07/17/20 09:59 Not Given DAILY HUNTER Glucagon 1 mg 06/16/20 13:10 Glucagen Inj 1 Mg Vial SUBCUT 07/16/20 13:09 PRN PRN Evaluate for BG < 70 Protocol Glucagon 1 mg 06/18/20 15:42 Glucagen Inj 1 Mg Vial SUBCUT 07/18/20 15:41 PRN PRN Evaluate for BG < 70 Protocol Glucose 15 gm 06/16/20 13:10 Glutose 40% Gel 15 Gm Tube PO 07/16/20 13:09 PRN PRN For BG 50-69 in Alert Patient Protocol Glucose 30 gm 06/16/20 13:10 Glutose 40% Gel 15 Gm Tube PO 07/16/20 13:09 PRN PRN FOR BG < 50 IN ALERT PATIENT Protocol Glucose 15 gm 06/18/20 15:42 Glutose 40% Gel 15 Gm Tube PO 07/18/20 15:41 PRN PRN For BG 50-69 in Alert Patient Protocol Glucose 30 gm 06/18/20 15:42 Glutose 40% Gel 15 Gm Tube PO 07/18/20 15:41 PRN PRN FOR BG < 50 IN ALERT PATIENT Protocol Guaifenesin 600 mg 06/16/20 22:00 06/18/20 21:36 Mucinex Sr 600 Mg Tablet.Sa PO 07/16/20 21:59 Not Given Q12 HUNTER Haloperidol Lactate 2 mg 06/18/20 08:55 06/18/20 20:12 Haldol 5 Mg/Ml Inj 1 Ml Vial IV 07/18/20 08:54 2 mg Q6HP PRN Administration RESTLESSNESS/AGITATION Hydralazine HCl 50 mg 06/16/20 22:00 06/18/20 21:34 Apresoline 50 Mg Tablet PO 07/16/20 21:59 Not Given Q8 HUNTER Meropenem 1 gm/ Sodium 50 mls @ 100 mls/hr 06/18/20 15:30 06/19/20 02:44 Chloride IV 06/25/20 15:29 Infused Q8 HUNTER Infusion Methylprednisolone Sodium Succinate 40 mg 06/16/20 22:00 06/18/20 21:32 Solu-Medrol Inj/Pf 40 Mg/1 Ml Sdv IV 07/16/20 21:59 40 mg Q12 HUNTER Administration Metoprolol Succinate 50 mg 06/18/20 10:00 06/18/20 21:36 Toprol Xl 50 Mg Tab.Sr PO 07/18/20 09:59 Not Given Q12 HUNTER Metoprolol Tartrate 5 mg 06/18/20 15:46 06/19/20 02:43 Lopressor Inj/Pf 5 Mg/5 Ml Sdv IV 07/18/20 15:41 5 mg Q4HP PRN Administration HR >110 Pantoprazole Sodium 40 mg 06/17/20 06:00 06/18/20 05:[address] Tablet PO 07/17/20 05:59 40 mg Q6AM HUNTER Administration Sodium Chloride 2.5 ml 06/16/20 14:00 06/18/20 21:36 Saline Flush 2.5 Ml Monoject Prefil Syrin IV 07/16/20 13:59 2.5 ml Q8 HUNTER Administration Discontinued Medications Generic Name Dose Route Start Last Admin Trade Name Freq PRN Reason Stop Dose Admin Acetaminophen 975 mg 06/16/20 09:36 06/16/20 09:56 Tylenol 325 Mg Tablet PO 06/16/20 09:37 975 mg NOW ONE Administration Furosemide 40 mg 06/16/20 21:55 06/16/20 22:38 Lasix Inj/Pf 40 Mg/4 Ml Sdv IV 06/16/20 21:56 Not Given NOW ONE Furosemide Confirm 06/16/20 22:01 06/16/20 22:08 Lasix Inj/Pf 40 Mg/4 Ml Sdv Administered 06/16/20 22:02 40 mg Dose Administration 40 mg .ROUTE .STK-MED ONE Haloperidol Lactate 2 mg 06/18/20 06:45 06/18/20 06:46 Haldol 5 Mg/Ml Inj 1 Ml Vial IM 06/18/20 06:46 2 mg NOW ONE Administration Diltiazem HCl 125 mg in 125 mls @ 0 mls/hr 06/16/20 09:31 06/16/20 18:00 Cardizem Rtu Inj 125 Mg-D5w 125 Ml Premix IV 07/16/20 09:30 2.5 mls/hr CONTINUOUS PRN 2.5 mls/hr THIS MED IS NOT "PRN" Titration Protocol Titrate Levofloxacin/Dextrose 750 mg in 150 mls @ 100 mls/hr 06/16/20 09:39 06/16/20 11:27 Levaquin Rtu 750 Mg/D5w 150 Ml Premix IV 06/16/20 11:08 Infused NOW ONE Infusion Sodium Chloride 1,000 mls @ 0 mls/hr 06/16/20 09:50 06/16/20 10:58 Nacl 0.9% 1000 Ml Iv Soln IV 06/16/20 09:51 Infused BOLUS ONE Infusion Wide Open Sodium Chloride 1,000 mls @ 0 mls/hr 06/16/20 10:14 06/16/20 11:46 Nacl 0.9% 1000 Ml Iv Soln IV 06/16/20 10:15 Infused BOLUS ONE Infusion Wide Open Dexmedetomidine/Sodium Chloride Confirm 06/16/20 13:10 06/16/20 19:08 Precedex 400 Mcg/Ns 100 Ml Iv Premix Administered 06/16/20 13:11 Not Given Dose 400 mcg in 100 mls @ ud IV .STK-MED ONE Dexmedetomidine/Sodium Chloride 400 mcg in 100 mls @ 7.57 mls/hr 06/16/20 13:16 06/17/20 22:49 Precedex 400 Mcg/Ns 100 Ml Iv Premix IV 07/16/20 13:15 Infused CONTINUOUS PRN Titration THIS MED IS NOT "PRN" Protocol 0.4 MCG/KG/HR Levofloxacin/Dextrose 750 mg in 150 mls @ 100 mls/hr 06/17/20 10:00 06/18/20 12:09 Levaquin Rtu 750 Mg/D5w 150 Ml Premix IV 06/24/20 09:59 Infused DAILY HUNTER Infusion Lorazepam 0.5 mg 06/16/20 10:33 06/16/20 10:38 Ativan Inj 2 Mg/1 Ml Vial IV 06/16/20 10:34 0.5 mg NOW ONE Administration Lorazepam 0.5 mg 06/18/20 01:33 06/18/20 02:00 Ativan Inj 2 Mg/1 Ml Vial IV 06/25/20 01:32 0.5 mg Q3HP PRN Administration ANXIETY/AGITATION Meropenem 1 gm 06/18/20 14:00 Merrem 1 Gm Vial IV 06/25/20 13:59 Q8 HUNTER Metoprolol Tartrate 5 mg 06/18/20 09:51 06/18/20 10:25 Lopressor Inj/Pf 5 Mg/5 Ml Sdv IV 07/18/20 09:50 5 mg Q6HP PRN Administration HR >110 Morphine Sulfate 1 mg 06/19/20 02:27 Morphine 10 Mg/Ml Inj IV 06/19/20 02:28 NOW ONE Scopolamine HBr 1 each 06/19/20 02:24 Transderm-Scop 1.5 Mg Patch TD 06/19/20 02:25 NOW ONE Sodium Chloride 2.5 ml 06/16/20 14:00 Saline Flush 2.5 Ml Monoject Prefil Syrin IV 07/16/20 13:59 Q8 HUNTER Status: Imported from PACS Assessment & Plan - Diagnosis (1) Atrial fibrillation with rapid ventricular response Is this a current diagnosis for this admission?: Yes Plan: The patient is critically sick with a severe pneumonia and pleural effusions. His rapid atrial fibrillation is secondary to the lack of rate controlling agents as he is NPO and mainly driven by his critical illness. Of great concern is that his BP has been lower than in the past day or so which brings up the possibility of sepsis and/or bacteremia. At this point it is most critical to treat his pneumonia and possible early sepsis with the addition of rate contr olling agents when he is able to tolerate PO. Recommendations: -Treat underlying critical illness. -Avoid CCB as his BP is already low. -Add anticoagulant of your choice given his [id number] score of 3. (2) Coronary artery disease Qualifiers: Coronary Disease-Associated Artery/Lesion type: [place] artery Is this a current diagnosis for this admission?: Yes Plan: Details of his coronary artery disease are unknown as the patient cannot provide any of those at this moment. Of great concern is the development of episodes of wide-complex tachycardia which may represent true ventricular tachycardia versus Slim's phenomenon however, given his history of coronary artery disease status post CABG and how critically ill he is at this point we will have to assume that this is actually ventricular tachycardia until proven otherwise therefore I will load him up on IV amiodarone and will likely continue him on a drip subsequently. I discussed the case with his hospitalist, Dr. Alaniz, and expres sed my concerns of possible acute deterioration of his cardiovascular status secondary to his extensive right-sided pneumonia. I expressed to him my low threshold to either transfer him back to the intensive care unit versus transfer him to a tertiary Medical Center for further management. The patient is scheduled to undergo chest tube placement on the right and we agreed to see if the patient gets any relief from the procedure but otherwise we will work on transfer him to [facility]. (3) Heart valve disease Is this a current diagnosis for this admission?: Yes Plan: No details available at this point. We are still awaiting his echocardiogram. Further recommendations pending those results. (4) Pneumonia involving right lung Qualifiers: Pneumonia type: due to unspecified organism Lung location: unspecified part of lung Qualified Code(s): J18.9 - Pneumonia, unspecified organism Is this a current diagnosis for this admission?: Yes Plan: As above.
[2020-06-19] MEDS: DEXTROSE 5%-WATER 500 ML with AMIODARONE HCL 900 MG IV PRN ×2 (09:58)
[2020-06-19] MEDS ORDERED: AMIODARONE HCL 150 MG in DEXTROSE 5%-WATER 100 ML IV ONE (10:00)
--- NOTE | 2020-06-19 10:56 | RADIOLOGY REPORT (SQ) ---
EXAM DESCRIPTION: CT HEAD WITHOUT IMAGES COMPLETED DATE/TIME: 06/19/2020 9:28 am REASON FOR STUDY: AMS. COMPARISON: None. TECHNIQUE: Axial images acquired through the brain without intravenous contrast. Images reviewed wi th bone, brain and subdural windows. Additional sagittal and coronal reconstructions were generated. Images stored on PACS. All CT scanners at this facility use dose modulation, iterative reconstruction, and/or weight based d osing when appropriate to reduce radiation dose to as low as reasonably achievable (ALARA). [facility]: Dose Right [facility]: CareDose [facility]: Dose Right [facility]: Teradose 4D [facility]: [employer] RADIATION DOSE: CT Rad equipment meets quality standard of care and radiation dose reduction techniq ues were employed. CTDIvol: 48.8 mGy. DLP: 1054 mGy-cm. mGy. LIMITATIONS: None. FINDINGS: VENTRICLES: Normal size and contour. CEREBRUM: No masses. No hemorrhage. No midline shift. No evidence for acute infarction. Normal gra y-white matter differentiation. Mild patchy periventricular and deep white matter hypodense attenuat ion consistent with mild chronic small vessel ischemic change. There is intracranial atherosclerosis . CEREBELLUM: No masses. No hemorrhage. No alteration of density. No evidence for acute infarction. EXTRAAXIAL SPACES: There is extensive scanning calcification of the dura along the intercerebral fal x and tentorium. No fluid collections. No masses. ORBITS AND GLOBE: No intra- or extraconal masses. Normal contour of globe without masses. CALVARIUM: No fracture. PARANASAL SINUSES: Minimal polypoid mucosal thickening posterior right maxillary sinus. No air-fluid levels. SOFT TISSUES: No mass or hematoma. OTHER: No other significant finding. IMPRESSION: No acute intracranial hemorrhage, mass, or evidence of acute territorial infarct. Mild chronic small vessel ischemic change. Intracranial atherosclerosis. EVIDENCE OF ACUTE STROKE: NO. COMMENT: Quality ID # [id number]: Final reports with documentation of one or more dose reduction techniques (e.g., Automated exposure control, adjustment of the mA and/or kV according to patient size, use of iterative reconstruction technique) TECHNICAL DOCUMENTATION: JOB ID: [id number] 2010 [employer]- All Rights Reserved Reading location - IP/workstation name: [email or web address]
[2020-06-19 14:00] LABS: INTERNATIONAL RATION (INR) 1.32; PROTHROMBIN TIME 16.6 SEC (11.4-15.4)
[2020-06-19 14:01] LABS: PARTIAL THROMBOPLASTIN TIME 51.3 SEC (23.5-35.8)
[2020-06-19] MEDS: HALOPERIDOL LACTATE INJ 5 MG/1 ML VIAL IV PRN ×2 (15:08→20:35)
--- NOTE | 2020-06-19 15:54 | RADIOLOGY REPORT (SQ) ---
EXAM DESCRIPTION: U/S THORACENTESIS W/CHEST TUBE IMAGES COMPLETED DATE/TIME: 06/19/2020 3:15 pm REASON FOR STUDY: PNA plural effusion COMPARISON: CT chest 06/18/2020. RADIATION DOSE: None LIMITATIONS: None. PROCEDURE: Procedure, risks, benefit, and alternative explained to patient who then gave written con sent. The posterior right chest wall was marked using ultrasound guidance. A time-out was called fo r correct marking verification. Chest prepped and draped using sterile technique. Local anesthesia a chieved using a ml of 1% lidocaine injection. A needle was introduced into the right pleural space. Fluid was aspirated. A 0.35 guidewire advanced through the needle and needle removed. Tissue tract was dilated with a 10 Albanian dilator. A 10 [place] all-purpose drainage catheter was advanced over t he wire and the wire removed. The pigtail catheter was formed and secured sterilely. 100 mL straw-c olored fluid was obtained and sent to lab for analysis. The catheter was placed to Pleur-Evac. No i mmediate complications noted. Images acquired during the procedure were stored on PACS. FINDINGS: ENTRY SITE: posterior right chest. FLUID VOLUME: 100 mL for diagnostic studies FLUID ANALYSIS: Straw-colored fluid OTHER: 10 Albanian chest tube left in place. IMPRESSION: SUCCESSFUL RIGHT THORACENTESIS AND CHEST TUBE PLACEMENT USING ULTRASOUND GUIDANCE. COMMENT: Patient medication list reviewed: Yes- Quality ID# [id number]:Eligible professional attests to doc umenting in the medical record they obtained, updated, or reviewed the patient's current medications. TECHNICAL DOCUMENTATION: JOB ID: [id number] 2010 [employer]- All Rights Reserved Reading location - IP/workstation name: [email or web address]
[2020-06-19 16:15] LABS: FLUID TYPE PLEURAL
[2020-06-19 16:16] LABS: FLUID COLOR YELLOW; FLUID VISCOSITY LIQUID
[2020-06-19 16:19] LABS: FLUID APPEARANCE SLIGHTLY HAZY
[2020-06-19 16:20] LABS: FLUID SOURCE LUNG
--- NOTE | 2020-06-19 17:01 | PDOC PROGRESS REPORT ---
Subjective Subjective:: Patient admitted for acute respiratory failure, pneumonia, chronic A. fib with acute RVR. Transferred out of ICU overnight 06/17. Patient was previously on a diltiazem and Precedex drip which were discontinued prior to transfer. Patient became acutely agitated frequently and heart rate ronni to the 140s to 120s sustained. Haldol helped with agitation momentarily but did not have a sustained effect. Ativan made agitation worse. Respiratory failure worsened as well and patient was started on BiPAP. He began pulling his BiPAP off and desaturating and was put in restraints. Heart rate briefly improved with IV me toprolol, unfortunately patient unable to take oral rate control meds while using BiPAP. Cardiology consulted. Critical care consulted to reevaluate the patient. CT scan of chest done which showed some pleural effusion possibly loculated pneumonia on the right. Radiology consulted for chest tube and fluid analysis labs were ordered along with cultures. General surgery consulted and the case was discussed with them in a stated they would like IR to perform chest tube and they would manage the chest tube thereafter. Patient cannot articulate any complaints due to agitation and using BiPAP. Troponin was positive x2 but flat, blood cultures negative, BNP up to 4000, COVID negative, sodium a bit lower at 131. 06/19/2020 Patient is waxing and waning with his clinical stability. One moment he is breathing well and somewhat alert, the next moment he is requiring BiPAP and appears very unstable as though he may need emergent intubation. This was discussed with Dr. Crocker in ICU yesterday and he would like the patient to remain on the floor for now. Also discussed case with Dr. Gerard in cardiology who agrees patient looks extremely ill at times. BP has been running low and I have discontinued the unnecessary BP meds he was sent to the ICU with. Hemoglobin is a bit lower but there are no signs of acute bleeding. Thoracentesis/chest tube has been ordered today and 100 cc of yellow fluid were removed and sent for analysis and culture. Suspect this will significantly improve the patient's respiratory status. Antibiotics have been broadened to meropenem. Blood cultures remain negative. He is still significantly tachycardic and at times showing V. tach per Dr. Gerard who is started the patient on amiodarone drip assuming BP will allow it. Patient cannot articulate any complaints today. Reason For Visit: PNEUMONIA, ATRIAL FIBRILLATION WITH RAPID Physical Exam Vital Signs: Temp Pulse Resp BP Pulse Ox 98.0 F 135 H 24 H 127/89 H 98 06/19/20 14:00 06/19/20 15:00 06/19/20 14:00 06/19/20 15:00 06/19/20 14:00 Intake & Output 06/18/20 06/19/20 06/20/20 06:59 06:59 06:59 Intake Total 537 220 305 Output Total 1600 1225 Balance -1063 -1005 305 Weight 74.8 kg 71.5 kg Exam: General appearance: PRESENT: no acute distress, well-developed, well-nourished, acutely and chronically ill-appearing Head exam: PRESENT: atraumatic, normocephalic Eye exam: PRESENT: conjunctiva pink Mouth exam: PRESENT: moist Respiratory exam: PRESENT: crackles, rales, rhonchi, tachypnea. ABSENT: wheezes Cardiovascular exam: PRESENT: irregular rhythm, tachycardia. ABSENT: diastolic murmur, systolic murmur GI/Abdominal exam: PRESENT: normal bowel sounds, soft. ABSENT: distended, guarding, mass, organolmegaly, rebound, tenderness Neurological exam: PRESENT: alert, awake. ABSENT: oriented to person, oriented to place, oriented to time, oriented to situation Psychiatric exam: PRESENT: Calm Skin exam: PRESENT: dry, intact, warm Results Laboratory Results: 06/19/20 05:30 06/19/20 05:30 06/18/20 06/19/20 06/19/20 16:27 05:30 05:30 WBC 6.7 RBC 3.06 L Hgb 8.7 L Hct 25.5 L MCV 83 MCH 28.5 MCHC 34.2 RDW 16.0 H Plt Count 187 Seg Neutrophils % Not Reportable Sodium 136.9 L Potassium 3.5 L Chloride 102 Carbon Dioxide 22 Anion Gap 13 BUN 72 H Creatinine 1.14 Est GFR ( Amer) > 60 Glucose 99 Calcium 8.3 L Total Protein 4.6 L Fluid Type Fluid Source Fluid Color Fluid Appearance Fluid Viscosity Fluid WBC Fluid RBC 06/19/20 14:25 WBC RBC Hgb Hct MCV MCH MCHC RDW Plt Count Seg Neutrophils % Sodium Potassium Chloride Carbon Dioxide Anion Gap BUN Creatinine Est GFR ( Amer) Glucose Calcium Total Protein Fluid Type PLEURAL Fluid Source LUNG Fluid Color YELLOW Fluid Appearance SLIGHTLY HAZY Fluid Viscosity LIQUID Fluid WBC 380 Fluid RBC 1235 06/16/20 09:31 Sputum Gram Stain - Final 06/16/20 09:31 Sputum Sputum Culture - Final NORMAL SARAH 06/16/20 06/16/20 06/16/20 09:10 09:10 14:10 Creatine Kinase 63 Troponin I 0.096 0.083 NT-Pro-B Natriuret Pep 06/16/20 06/17/20 06/17/20 18:27 02:34 06:28 Creatine Kinase Troponin I 0.064 0.067 NT-Pro-B Natriuret Pep 4080 H Impressions: Chest X-Ray 06/17/20 00:00 IMPRESSION: Progression of right lung volume loss and consolidation, increasing pleural effusion on the right Chest CT 06/18/20 09:00 IMPRESSION: 1. Multifocal airspace disease throughout the right hemithorax compatible with pneumonia. [id number] associated subpulmonic effusion. 2. Cardiomegaly and coronary atherosclerosis. Head CT 06/19/20 00:00 IMPRESSION: No acute intracranial hemorrhage, mass, or evidence of acute territorial infarct. Mild chronic small vessel ischemic change. Intracranial atherosclerosis. EVIDENCE OF ACUTE STROKE: NO. Thoracentesis Ultrasound 06/19/20 00:00 IMPRESSION: SUCCESSFUL RIGHT THORACENTESIS AND CHEST TUBE PLACEMENT USING ULTRASOUND GUIDANCE. Assessment and Plan - Diagnosis (1) Pneumonia involving right lung Qualifiers: Pneumonia type: due to unspecified organism Lung location: unspecified part of lung Qualified Code(s): J18.9 - Pneumonia, unspecified organism Is this a current diagnosis for this admission?: Yes Plan: CT chest showed extensive pneumonia involving right lung with parapneumonic effusion IR consulted for chest tube placement, done on 06/19 Pleural fluid sent for chemistry analysis and bacterial cultures and fungal cultures, follow-up results General surgery consulted for chest tube management, discussed with them and they have agreed to follow along Broaden antibiotics to meropenem Respiratory culture pending Blood cultures negative (2) Atrial fibrillation with rapid ventricular response Is this a current diagnosis for this admission?: Yes Plan: Diltiazem p.o. and metoprolol p.o., unable to take these while using BiPAP and agitated IV as needed metoprolol for heart rate greater than 110 bpm Cardiology consult Echocardiogram Occasional V. tach noted on telemetry per cardiology, started on amiodarone drip as BP allows (3) COPD (chronic obstructive pulmonary disease) Qualifiers: COPD type: COPD with acute lower respiratory infection Qualified Code(s): J44.0 - Chronic obstructive pulmonary disease with (acute) lower respiratory infection Is this a current diagnosis for this admission?: Yes Plan: Intermittently severe in setting of pneumonia Inhalers Bronchial hygiene Hold steroids for now Duo nebs PRN (4) Acute metabolic encephalopathy Is this a current diagnosis for this admission?: Yes - Time Time Spent with patient: 35 or more minutes Medications reviewed and adjusted accordingly: Yes Anticipated Discharge Disposition: Snf Facility Anticipated Discharge Timeframe: within 72 hours - Inpatient Certification Based on my medical assessment, after consideration of the patient's comorbidities, presenting symptoms, or acuity I expect that the services needed warrant INPATIENT care.: Yes I certify that my determination is in accordance with my understanding of Medicare's requirements for reasonable and necessary INPATIENT services [42 CFR 412.3e].: Yes Medical Necessity: Significant Comorbidiites Make Outpatient Treatment Too Risky, Need Close Monitoring Due to Risk of Patient Decompensation, Need for IV Antibiotics, Risk of Complication if Not Cared For in Hospital, Risk of Diagnosis Which Will Require Inpatient Eval/Care/Monitoring
--- NOTE | 2020-06-19 17:14 | PDOC CONSULTATION ---
Consultation Consult Date: 06/19/20 Provider Consulted: AZAEL NAVA Consult reason:: Left chest tube placement History of Present Illness Admission Date/PCP: 06/16/20 10:18 TRENA RICKS MD History of Present Illness: OUSMANE HOWELL is a 75 year old male history of dyspnea and history of coronary artery bypass, clipping of atrial appendage and AVR has had multiple episodes of thoracenteses the last 10/24/2019 at [facility]. He was admitted on 06/16/2020 noted to have massive infiltrate on the right lung with small to moderate amount of effusion. I was asked to place a chest tube. Unfortunately the effusion is not easily seen and therefore IR was requested. They placed pleural catheter today and drained about at least 100 cc of fluid. We will be available to follow-up the patient is patient there is any problem with the catheter that IR may not be able to take care of right away. Past Medical History Cardiac Medical History: Reports: Atrial Fibrillation, Coronary Artery Disease, Myocardial Infarction - possible, Hyperlipidema, Hypertension, Peripheral Vascular Disease Pulmonary Medical History: Reports: Chronic Obstructive Pulmonary Disease (COPD) Neurological Medical History: Denies: Seizures Psychiatric Medical History: Denies: Depression Past Surgical History Past Surgical History: Reports: Cholecystectomy - bypass, heart valve, left leg artery, Coronary Artery Bypass Graft, Coronary Stent, Valve Replacement Social History Lives with: Family Smoking Status: Former Smoker - Advance Directive Resuscitation Status: Full Code Family History Family History: Reviewed & Not Pertinent Parental Family History Reviewed: No Children Family History Reviewed: No Sibling(s) Family History Reviewed.: No Medication/Allergy Home Medications: Albuterol Sulfate [Proair Hfa Inhalation Aerosol 8.5 gm Mdi] 1 puff IH Q4HP PRN 06/16/20 Alfuzosin HCl [Alfuzosin HCl ER] 10 mg PO DAILY 06/16/20 Cetirizine HCl [Zyrtec 10 mg Tablet] 10 mg PO DAILY 06/16/20 Diltiazem HCl [Cardizem Cd 240 mg Capsule.cr] 1 cap.sr PO DAILY 06/16/20 Duloxetine HCl [Cymbalta] 30 mg PO DAILY 06/16/20 Fluticasone/Salmeterol [Advair 100-50 Diskus 14 Dose/Diskus] 1 inh IH Q12 08/29/20 Furosemide [Lasix 20 mg Tablet] 20 mg PO DAILY 06/16/20 Hydralazine HCl [Apresoline 50 mg Tablet] 50 mg PO BID 06/16/20 Pantoprazole Sodium [Protonix [address] Tablet] 40 mg PO DAILY 06/16/20 Allergies/Adverse Reactions: aspirin Allergy (Verified 06/16/20 09:14) clopidogrel bisulfate [From Plavix] Allergy (Verified 06/16/20 09:14) Review of Systems Cardiovascular: PRESENT: dyspnea on exertion Respiratory: PRESENT: cough Physical Exam Vital Signs: Temp Pulse Resp BP Pulse Ox 97.5 F 118 H 24 H 126/66 H 98 06/19/20 16:50 06/19/20 16:00 06/19/20 14:00 06/19/20 16:48 06/19/20 14:00 Intake & Output 06/18/20 06/19/20 06/20/20 06:59 06:59 06:59 Intake Total 537 220 305 Output Total 1600 1225 Balance -1063 -1005 305 Weight 74.8 kg 71.5 kg General appearance: PRESENT: severe distress Neck exam: PRESENT: full ROM Respiratory exam: PRESENT: decreased breath sounds Pulses: PRESENT: normal radial pulses Vascular exam: PRESENT: normal capillary refill GI/Abdominal exam: PRESENT: soft Rectal exam: PRESENT: deferred Results Laboratory Results: 06/19/20 05:30 06/19/20 05:30 06/18/20 06/19/20 06/19/20 16:27 05:30 05:30 WBC 6.7 RBC 3.06 L Hgb 8.7 L Hct 25.5 L MCV 83 MCH 28.5 MCHC 34.2 RDW 16.0 H Plt Count 187 Seg Neutrophils % Not Reportable Sodium 136.9 L Potassium 3.5 L Chloride 102 Carbon Dioxide 22 Anion Gap 13 BUN 72 H Creatinine 1.14 Est GFR ( Amer) > 60 Glucose 99 Calcium 8.3 L Total Protein 4.6 L Fluid Type Fluid Source Fluid Color Fluid Appearance Fluid Viscosity Fluid WBC Fluid RBC 06/19/20 14:25 WBC RBC Hgb Hct MCV MCH MCHC RDW Plt Count Seg Neutrophils % Sodium Potassium Chloride Carbon Dioxide Anion Gap BUN Creatinine Est GFR ( Amer) Glucose Calcium Total Protein Fluid Type PLEURAL Fluid Source LUNG Fluid Color YELLOW Fluid Appearance SLIGHTLY HAZY Fluid Viscosity LIQUID Fluid WBC 380 Fluid RBC 1235 06/16/20 09:31 Sputum Gram Stain - Final 06/16/20 09:31 Sputum Sputum Culture - Final NORMAL SARAH 06/16/20 06/16/20 06/16/20 09:10 09:10 14:10 Creatine Kinase 63 Troponin I 0.096 0.083 NT-Pro-B Natriuret Pep 06/16/20 06/17/20 06/17/20 18:27 02:34 06:28 Creatine Kinase Troponin I 0.064 0.067 NT-Pro-B Natriuret Pep 4080 H Impressions: Chest X-Ray 06/17/20 00:00 IMPRESSION: Progression of right lung volume loss and consolidation, increasing pleural effusion on the right Chest CT 06/18/20 09:00 IMPRESSION: 1. Multifocal airspace disease throughout the right hemithorax compatible with pneumonia. [id number] associated subpulmonic effusion. 2. Cardiomegaly and coronary atherosclerosis. Head CT 06/19/20 00:00 IMPRESSION: No acute intracranial hemorrhage, mass, or evidence of acute territorial infarct. Mild chronic small vessel ischemic change. Intracranial atherosclerosis. EVIDENCE OF ACUTE STROKE: NO. Thoracentesis Ultrasound 06/19/20 00:00 IMPRESSION: SUCCESSFUL RIGHT THORACENTESIS AND CHEST TUBE PLACEMENT USING ULTRASOUND GUIDANCE. Assessment & Plan - Diagnosis (1) Recurrent right pleural effusion Is this a current diagnosis for this admission?: Yes (2) Atrial fibrillation with rapid ventricular response Is this a current diagnosis for this admission?: Yes (3) COPD (chronic obstructive pulmonary disease) Qualifiers: COPD type: COPD with acute lower respiratory infection Qualified Code(s): J44.0 - Chronic obstructive pulmonary disease with (acute) lower respiratory infection Is this a current diagnosis for this admission?: Yes (4) Hypotension Qualifiers: Hypotension type: unspecified hypotension type Qualified Code(s): I95.9 - Hypotension, unspecified (6) Pneumonia involving right lung Qualifiers: Pneumonia type: due to unspecified organism Lung location: unspecified part of lung Qualified Code(s): J18.9 - Pneumonia, unspecified organism Is this a current diagnosis for this admission?: Yes - Time Time Spent: 30 to 50 Minutes Anticipated discharge: Home with Homehealth Anticipated DC Timeframe: Other - 2 weeks - Inpatient Certification Medical Necessity: Need Close Monitoring Due to Risk of Patient Decompensation, Need for IV Antibiotics - Plan Summary Plan Summary: 75-year-old male with dyspnea and pneumonia with right effusion. Patient had history of coronary artery bypass, clipping of atrial appendage and AVR. Admitted for severe dyspnea and noted to have infiltrate in the right lung with mild to moderate effusion. Right chest tube was placed by IR today and drained at least 100 cc of fluid with some improvement in patient's respiratory status. We will be available if there is any other issue as far as the chest tube is concerned especially if IR wound able to follow-up right away. We will sign off for now but call for any other questions.
[2020-06-19] MEDS: MORPHINE SULFATE 10 MG/ML INJ IV PRN (22:04)
--- NOTE | 2020-06-19 22:50 | CDI QUERY ---
<OSMAN RICHARDSON - Last Filed: 06/19/20 22:47> CDI Query CDI Review: We are seeking further clarification of documentation to reflect the severity of illness of your patient. Noted in Critical Care Progress Notes: Pneumonia Qualifiers: Pneumonia type: due to unspecified organism Laterality: right Lung location: lower lobe of lung Qualified Code(s): J18.9 - Pneumonia, unspecified organism Is this a current diagnosis for this admission?: Yes Plan: This is his main problem. He is growing GPC and GNR in his sputum gram stain making me think this is a PNA, perhaps with diplococcos for which levequin is likely fine. he GNR is indicative of aspiration, which could explain the longterm c ourse and frequent thoracenteses. I would broaden coverage to include gram negative coverage and consider a formal speech study when he is off bipap and he is not delirious. Keep NPO for now. Based on your medical judgment, can you further clarify in the progress notes whether the pneumonia is most likely or suspected to be related to any of the following: Aspiration Pseudomonas MRSA Pneumococcus Viral Gram negative Other specific organism Other cause (please specify) None of the above / Not applicable Thank you for your consideration. JERRELL Toure RN Clinical Cold Working Supervisor Physician Advisor <OLYA PUGH - Last Filed: 06/20/20 07:25> CDI Query CDI Review: None of the above / Not applicable UNABLE TO DETERMINE Suspect Aspiration
--- NOTE | 2020-06-19 23:05 | CDI QUERY ---
<OSMAN RICHARDSON - Last Filed: 06/19/20 23:04> CDI Query CDI Review: We are seeking further clarification of documentation to reflect the severity of illness of your patient. Per Cardiology Consult Notes: history however it includes CAD s/p CABG, atrial fibrillation s/p MAZE and LALY ligation, Per Progress Notes: Atrial fibrillation with rapid ventricular response Is this a current diagnosis for this admission?: Yes Plan: Diltiazem p.o. and metoprolol p.o., unable to take these while using BiPAP and agitated IV as needed metoprolol for heart rate greater than 110 bpm Cardiology consult Echocardiogram Occasional V. tach noted on telemetry per cardiology, started on amiodarone drip as BP allows Please clarify if the Atrial Fibrillation can be further specified: Persistent atrial fibrillation Long standing persistent atrial fibrillation Chronic atrial fibrillation Permanent atrial fibrillation Other Thank you for your consideration. ARCHIE ToureN RN Clinical Broadcast Field Supervisor Physician Advisor [email or web address] <OLYA PUGH - Last Filed: 06/20/20 07:24> CDI Query CDI Review: Permanent Atrial Fibrillation
[2020-06-20] MEDS: IPRATROPIUM/ALBUTEROL 0.5-2.5 MG/3 ML AMPUL NEB SCH ×6 (00:03→20:17)
[2020-06-20] MEDS: MORPHINE SULFATE 10 MG/ML INJ IV PRN ×5 (01:41→19:30)
[2020-06-20] MEDS: MEROPENEM 1 GM in NORMAL SALINE 50 ML IV SCH ×3 (05:26→23:56)
[2020-06-20] MEDS: PANTOPRAZOLE SODIUM 40 MG TABLET.DR PO SCH (05:27)
[2020-06-20] MEDS: DULOXETINE HCL 30 MG CAPSULE.DR PO SCH ×3 (05:27→21:06)
--- NOTE | 2020-06-20 09:26 | PDOC PROGRESS REPORT ---
Subjective Progress Note for:: 06/20/20 Subjective:: OUSMANE HOWELL is a 75 year old male who is consulted to our service for further evaluation of atrial fibrillation. The patient is on BiPAP and unable to answer questions therefore the following history is obtained from reviewing his inpatient chart. Unfortunately the patient cannot provide any details of his history however it includes CAD s/p CABG, atrial fibrillation s/p MAZE and LALY ligation, right pleural effusion s/p [facility] thoracent[facility] and COPD. He was admitted on JUN 07 for progressively worse dyspnea and sputum production and eventually diagnosed with a significant right sided pneumonia. In the ED he was noted to be in respiratory distress, BiPAP was started and he was admitted to the ICU as it was thought that he was at an elevated risk for intubation. In the ICU he had episodes of delirium and was c ombative. He eventually improved and his afib was well controlled. He was then transferred out of the ICU earlier today. Unfortunately, he became combative, developed more dyspnea, his BP decreased and has had episodes of rapid atrial fibrillation with rates between 110 and 120 bpm which worsens up to 140's when he is agitated and combative. 06/20/2020: The patient had an uneventful night. Underwent chest tube placement yesterday in continues to drain a significant amount of fluid from the right chest. He is being loaded up on amiodarone IV due to episodes of wide-complex tachycardia yesterday and converted to normal sinus rhythm. He continues to be on BiPAP however he looks much better than yesterday and appears very comfortable. He is not receiving any diuretics however his fluid balance is -3.7 L. Physical exam on 06/20/2020: GENERAL: Sleeping comfortably, on BiPAP without any respiratory distress. Opens eyes to commands but falls right back asleep. HEENT: Normocephalic, atraumatic. Oropharynx is dry. NECK: No JVD. No carotid bruits. LUNGS: Clear to auscultation bilaterally. CARDIOVASCULAR: Regularly irregular rate and rhythm, normal S1 and S2 without murmurs, rubs, or gallops. PMI not displaced. EXTREMITIES: No edema, no cyanosis, no clubbing. +2 pulses femoral and pedal pulses bilaterally. SKIN: No lesions or rashes. MUSCULOSKELETAL: No chest tenderness to palpation. NEUROLOGIC: Nonfocal. No gross sensory or motor deficits bilateral upper or lower extremities. Reason For Visit: PNEUMONIA, ATRIAL FIBRILLATION WITH RAPID Physical Exam Vital Signs: Temp Pulse Resp BP Pulse Ox 97.6 F 82 16 95/62 L 96 06/20/20 03:27 06/20/20 04:48 06/20/20 04:48 06/20/20 04:00 06/20/20 04:48 Intake & Output 06/18/20 06/19/20 06/20/20 06:59 06:59 06:59 Intake Total 537 220 355 Output Total 1600 1228 3839 Balance -1182 -6554 -9766 Weight 74.8 kg 71.5 kg 85.8 kg Results Laboratory Results: 06/19/20 05:30 06/19/20 05:30 06/19/20 06/19/20 06/19/20 05:30 05:30 14:25 WBC 6.7 RBC 3.06 L Hgb 8.7 L Hct 25.5 L MCV 83 MCH 28.5 MCHC 34.2 RDW 16.0 H Plt Count 187 Seg Neutrophils % Not Reportable Sodium 136.9 L Potassium 3.5 L Chloride 102 Carbon Dioxide 22 Anion Gap 13 BUN 72 H Creatinine 1.14 Est GFR ( Amer) > 60 Glucose 99 Calcium 8.3 L Fluid Type PLEURAL Fluid Source LUNG Fluid Color YELLOW Fluid Appearance SLIGHTLY HAZY Fluid Viscosity LIQUID Fluid WBC 380 Fluid RBC 1235 06/16/20 06/16/20 06/16/20 09:10 09:10 14:10 Creatine Kinase 63 Troponin I 0.096 0.083 NT-Pro-B Natriuret Pep 06/16/20 06/17/20 06/17/20 18:27 02:34 06:28 Creatine Kinase Troponin I 0.064 0.067 NT-Pro-B Natriuret Pep 4080 H Impressions: Chest X-Ray 06/17/20 00:00 IMPRESSION: Progression of right lung volume loss and consolidation, increasing pleural effusion on the right Chest CT 06/18/20 09:00 IMPRESSION: 1. Multifocal airspace disease throughout the right hemithorax compatible with pneumonia. [id number] associated subpulmonic effusion. 2. Cardiomegaly and coronary atherosclerosis. Head CT 06/19/20 00:00 IMPRESSION: No acute intracranial hemorrhage, mass, or evidence of acute [place] torial infarct. Mild chronic small vessel ischemic change. Intracranial atherosclerosis. EVIDENCE OF ACUTE STROKE: NO. Thoracentesis Ultrasound 06/19/20 00:00 IMPRESSION: SUCCESSFUL RIGHT THORACENTESIS AND CHEST TUBE PLACEMENT USING ULTRASOUND GUIDANCE. 06/19/20 05:30 06/19/20 05:30 MCV 83 fl (80-97) 06/19/20 05:30 MCH 28.5 pg (27.0-33.4) 06/19/20 05:30 MCHC 34.2 g/dL (32.0-36.0) 06/19/20 05:30 RDW 16.0 % (11.5-14.0) H 06/19/20 05:30 Seg Neutrophils % Not Reportable 06/19/20 05:30 Carbonic Acid 1.21 mmol/L (1.05-1.35) 06/18/20 09:03 HCO3/H2CO3 Ratio 18:1 06/18/20 09:03 ABG pH 7.36 (7.35-7.45) 06/18/20 09:03 ABG pCO2 40.2 mmHg (35-45) 06/18/20 09:03 ABG pO2 59.5 mmHg (80-100) L 06/18/20 09:03 ABG HCO3 21.9 mmol/L (20-24) 06/18/20 09:03 ABG O2 Saturation 89.8 % (94-98) L 06/18/20 09:03 ABG Base Excess -3.3 mmol/L 06/18/20 09:03 VBG pH 7.42 (7.30-7.42) 06/16/20 09:00 VBG pCO2 40.8 mmHg (35-63) 06/16/20 09:00 VBG HCO3 26.1 mmol/L (20-32) 06/16/20 09:00 VBG Base Excess 1.6 mmol/L 06/16/20 09:00 FiO2 6L 06/18/20 09:03 Chloride 102 mmol/L (98-107) 06/19/20 05:30 Carbon Dioxide 22 mmol/L (22-30) 06/19/20 05:30 Anion Gap 13 (5-19) 06/19/20 05:30 Est GFR ( Amer) > 60 (>60) 06/19/20 05:30 Glucose 99 mg/dL (75-110) 06/19/20 05:30 Lactic Acid 2.3 mmol/L (0.7-2.1) H 06/16/20 09:00 Calcium 8.3 mg/dL (8.4-10.2) L 06/19/20 05:30 Magnesium 2.4 mg/dL (1.6-2.3) H 06/17/20 06:28 Ferritin 494.00 ng/mL (17.9-464.0) H 06/16/20 09:10 Total Bilirubin 3.8 mg/dL (0.2-1.3) H 06/16/20 09:00 AST 107 U/L (17-59) H 06/16/20 09:00 Alkaline Phosphatase 144 U/L (38-126) H 06/16/20 09:00 Total Protein 4.6 g/dL (6.3-8.2) L 06/18/20 16:27 Albumin 2.6 g/dL (3.5-5.0) L 06/16/20 09:00 Triglycerides 112 mg/dL (<150) 06/17/20 06:28 Cholesterol 51.72 mg/dL (0-200) 06/17/20 06:28 LDL Cholesterol Direct < 30 mg/dL (<100) 06/17/20 06:28 VLDL Cholesterol 22.0 mg/dL (10-31) 06/17/20 06:28 HDL Cholesterol 9 mg/dL (>40) L 06/17/20 06:28 TSH 0.45 uIU/mL (0.47-4.68) L 06/17/20 06:28 Urine Color CANDELARIO 06/16/20 14:25 Urine Appearance CLOUDY 06/16/20 14:25 Urine pH 5.0 (5.0-9.0) 06/16/20 14:25 Ur Specific [place] 1.019 06/16/20 14:25 Urine Protein 100 mg/dL (NEGATIVE) H 06/16/20 14:25 Urine Glucose (UA) NEGATIVE mg/dL (NEGATIVE) 06/16/20 14:25 Urine Ketones NEGATIVE mg/dL (NEGATIVE) 06/16/20 14:25 Urine Blood SMALL (NEGATIVE) H 06/16/20 14:25 Urine Nitrite NEGATIVE (NEGATIVE) 06/16/20 14:25 Ur Leukocyte Esterase NEGATIVE (NEGATIVE) 06/16/20 14:25 Urine WBC (Auto) 3 /HPF 06/16/20 14:25 Urine RBC (Auto) 1 /HPF 06/16/20 14:25 Fluid Type PLEURAL 06/19/20 14:25 Fluid Source LUNG 06/19/20 14:25 Fluid Color YELLOW 06/19/20 14:25 Fluid Appearance SLIGHTLY HAZY 06/19/20 14:25 Fluid Viscosity LIQUID 06/19/20 14:25 Fluid WBC 380 /uL 06/19/20 14:25 Fluid RBC 1235 /uL 06/19/20 14:25 06/16/20 06/16/20 06/16/20 09:10 09:10 14:10 Creatine Kinase 63 Troponin I 0.096 0.083 NT-Pro-B Natriuret Pep 06/16/20 06/17/20 06/17/20 18:27 02:34 06:28 Creatine Kinase Troponin I 0.064 0.067 NT-Pro-B Natriuret Pep 4080 H Current Medication List Generic Name Dose Route Start Last Admin Trade Name Freq PRN Reason Stop Dose Admin Albuterol/Ipratropium 3 ml 06/16/20 14:30 06/20/20 04:48 Duoneb 3 Ml Ampul NEB 07/16/20 14:29 3 ml RTQ4 HUNTER Administration Albuterol/Ipratropium 3 ml 06/18/20 15:38 Duoneb 3 Ml Ampul NEB 07/18/20 15:37 RTQ2HP PRN SHORTNESS OF BREATH Dextrose 12.5 gm 06/18/20 15:42 Dextrose Inj 50% Syringe (25 Gm/50 Ml) IV 07/18/20 15:41 PRN PRN FOR BG 50-69 IN ALERT PATIENT Protocol Dextrose 25 gm 06/18/20 15:42 Dextrose Inj 50% Syringe (25 Gm/50 Ml) IV 07/18/20 15:41 PRN PRN See Label Comments Protocol Diltiazem HCl 240 mg 06/16/20 16:00 06/18/20 12:09 Cardizem Cd 240 Mg Capsule.Cr PO 07/16/20 15:59 Not Given DAILY HUNTER Duloxetine HCl 30 mg 06/16/20 22:00 06/20/20 05:27 Cymbalta 30 Mg Capsule. PO 07/16/20 21:59 Not Given Q8 HUNTER Enoxaparin Sodium 40 mg 06/16/20 14:00 06/18/20 10:11 Lovenox Inj 40 Mg/0.4 Ml Disp.Syrin SUBCUT 07/16/20 13:59 40 mg DAILY HUNTER Administration Furosemide 20 mg 06/17/20 10:00 06/19/20 09:01 Lasix 20 Mg Tablet PO 07/17/20 09:59 Not Given DAILY HUNTER Glucagon 1 mg 06/18/20 15:42 Glucagen Inj 1 Mg Vial SUBCUT 07/18/20 15:41 PRN PRN Evaluate for BG < 70 Protocol Glucose 15 gm 06/18/20 15:42 Glutose 40% Gel 15 Gm Tube PO 07/18/20 15:41 PRN PRN For BG 50-69 in Alert Patient Protocol Glucose 30 gm 06/18/20 15:42 Glutose 40% Gel 15 Gm Tube PO 07/18/20 15:41 PRN PRN FOR BG < 50 IN ALERT PATIENT Protocol Guaifenesin 600 mg 06/16/20 22:00 06/19/20 22:12 Mucinex Sr 600 Mg Tablet.Sa PO 07/16/20 21:59 Not Given Q12 HUNTER Haloperidol Lactate 2 mg 06/18/20 08:55 06/19/20 20:35 Haldol 5 Mg/Ml Inj 1 Ml Vial IV 07/18/20 08:54 2 mg Q6HP PRN Administration RESTLESSNESS/AGITATION Meropenem 1 gm/ Sodium 50 mls @ 100 mls/hr 06/18/20 15:30 06/20/20 05:26 Chloride IV 06/25/20 15:29 100 mls/hr Q8 HUNTER 100 mls/hr Administration Amiodarone HCl 900 mg/ 500 mls @ 0 mls/hr 06/19/20 10:00 06/19/20 16:08 Dextrose IV 06/22/20 09:59 16.7 mls/hr CONTINUOUS PRN 16.7 mls/hr THIS MED IS NOT "PRN" Titration Protocol Per Protocol Methylprednisolone Sodium Succinate 40 mg 06/16/20 22:00 06/19/20 22:11 Solu-Medrol Inj/Pf 40 Mg/1 Ml Sdv IV 07/16/20 21:59 40 mg Q12 HUNTER Administration Metoprolol Succinate 50 mg 06/18/20 10:00 06/19/20 22:12 Toprol Xl 50 Mg Tab.Sr PO 07/18/20 09:59 Not Given Q12 HUNTER Metoprolol Tartrate 5 mg 06/18/20 15:46 06/19/20 15:06 Lopressor Inj/Pf 5 Mg/5 Ml Sdv IV 07/18/20 15:41 5 mg Q4HP PRN Administration HR >110 Morphine Sulfate 4 mg 06/19/20 22:00 06/20/20 05:45 Morphine 10 Mg/Ml Inj IV 06/26/20 21:59 4 mg Q2HP PRN Administration FOR PAIN Pantoprazole Sodium 40 mg 06/17/20 06:00 06/20/20 05:[address] Tablet PO 07/17/20 05:59 Not Given Q6AM HUNTER Sodium Chloride 2.5 ml 06/16/20 14:00 06/20/20 05:28 Saline Flush 2.5 Ml Monoject Prefil Syrin IV 07/16/20 13:59 2.5 ml Q8 HUNTER Administration Discontinued Medications Generic Name Dose Route Start Last Admin Trade Name Freq PRN Reason Stop Dose Admin Acetaminophen 975 mg 06/16/20 09:36 06/16/20 09:56 Tylenol 325 Mg Tablet PO 06/16/20 09:37 975 mg NOW ONE Administration Dextrose 12.5 gm 06/16/20 13:10 Dextrose Inj 50% Syringe (25 Gm/50 Ml) IV 07/16/20 13:09 PRN PRN FOR BG 50-69 IN ALERT PATIENT Protocol Dextrose 25 gm 06/16/20 13:10 Dextrose Inj 50% Syringe (25 Gm/50 Ml) IV 07/16/20 13:09 PRN PRN See Label Comments Protocol Doxazosin Mesylate 2 mg 06/16/20 22:00 06/18/20 21:34 Cardura 2 Mg Tablet PO 07/16/20 21:59 Not Given QHS HUNTER Furosemide 40 mg 06/16/20 21:55 06/16/20 22:38 Lasix Inj/Pf 40 Mg/4 Ml Sdv IV 06/16/20 21:56 Not Given NOW ONE Furosemide Confirm 06/16/20 22:01 06/16/20 22:08 Lasix Inj/Pf 40 Mg/4 Ml Sdv Administered 06/16/20 22:02 40 mg Dose Administration 40 mg .ROUTE .STK-MED ONE Glucagon 1 mg 06/16/20 13:10 Glucagen Inj 1 Mg Vial SUBCUT 07/16/20 13:09 PRN PRN Evaluate for BG < 70 Protocol Glucose 15 gm 06/16/20 13:10 Glutose 40% Gel 15 Gm Tube PO 07/16/20 13:09 PRN PRN For BG 50-69 in Alert Patient Protocol Glucose 30 gm 06/16/20 13:10 Glutose 40% Gel 15 Gm Tube PO 07/16/20 13:09 PRN PRN FOR BG < 50 IN ALERT PATIENT Protocol Haloperidol Lactate 2 mg 06/18/20 06:45 06/18/20 06:46 Haldol 5 Mg/Ml Inj 1 Ml Vial IM 06/18/20 06:46 2 mg NOW ONE Administration Hydralazine HCl 50 mg 06/16/20 22:00 06/19/20 06:19 Apresoline 50 Mg Tablet PO 07/16/20 21:59 Not Given Q8 HUNTER Diltiazem HCl 125 mg in 125 mls @ 0 mls/hr 06/16/20 09:31 06/16/20 18:00 Cardizem Rtu Inj 125 Mg-D5w 125 Ml Premix IV 07/16/20 09:30 2.5 mls/hr CONTINUOUS PRN 2.5 mls/hr THIS MED IS NOT "PRN" Titration Protocol Titrate Levofloxacin/Dextrose 750 mg in 150 mls @ 100 mls/hr 06/16/20 09:39 06/16/20 11:27 Levaquin Rtu 750 Mg/D5w 150 Ml Premix IV 06/16/20 11:08 Infused NOW ONE Infusion Sodium Chloride 1,000 mls @ 0 mls/hr 06/16/20 09:50 06/16/20 10:58 Nacl 0.9% 1000 Ml Iv Soln IV 06/16/20 09:51 Infused BOLUS ONE Infusion Wide Open Sodium Chloride 1,000 mls @ 0 mls/hr 06/16/20 10:14 06/16/20 11:46 Nacl 0.9% 1000 Ml Iv Soln IV 06/16/20 10:15 Infused BOLUS ONE Infusion Wide Open Dexmedetomidine/Sodium Chloride Confirm 06/16/20 13:10 06/16/20 19:08 Precedex 400 Mcg/Ns 100 Ml Iv Premix Administered 06/16/20 13:11 Not Given Dose 400 mcg in 100 mls @ ud IV .STK-MED ONE Dexmedetomidine/Sodium Chloride 400 mcg in 100 mls @ 7.57 mls/hr 06/16/20 13:16 06/17/20 22:49 Precedex 400 Mcg/Ns 100 Ml Iv Premix IV 07/16/20 13:15 Infused CONTINUOUS PRN Titration THIS MED IS NOT "PRN" Protocol 0.4 MCG/KG/HR Levofloxacin/Dextrose 750 mg in 150 mls @ 100 mls/hr 06/17/20 10:00 06/18/20 12:09 Levaquin Rtu 750 Mg/D5w 150 Ml Premix IV 06/24/20 09:59 Infused DAILY HUNTER Infusion Amiodarone HCl 150 mg/ 100 mls @ 600 mls/hr 06/19/20 10:00 06/19/20 09:43 Dextrose IV 06/19/20 10:09 600 mls/hr NOW ONE Administration Lorazepam 0.5 mg 06/16/20 10:33 06/16/20 10:38 Ativan Inj 2 Mg/1 Ml Vial IV 06/16/20 10:34 0.5 mg NOW ONE Administration Lorazepam 0.5 mg 06/18/20 01:33 06/18/20 02:00 Ativan Inj 2 Mg/1 Ml Vial IV 06/25/20 01:32 0.5 mg Q3HP PRN Administration ANXIETY/AGITATION Meropenem 1 gm 06/18/20 14:00 Merrem 1 Gm Vial IV 06/25/20 13:59 Q8 HUNTER Metoprolol Tartrate 5 mg 06/18/20 09:51 06/18/20 10:25 Lopressor Inj/Pf 5 Mg/5 Ml Sdv IV 07/18/20 09:50 5 mg Q6HP PRN Administration HR >110 Morphine Sulfate 1 mg 06/19/20 02:27 06/19/20 06:26 Morphine 10 Mg/Ml Inj IV 06/19/20 02:28 Not Given NOW ONE Scopolamine HBr 1 each 06/19/20 02:24 06/19/20 06:26 Transderm-Scop 1.5 Mg Patch TD 06/19/20 02:25 Not Given NOW ONE Sodium Chloride 2.5 ml 06/16/20 14:00 Saline Flush 2.5 Ml Monoject Prefil Syrin IV 07/16/20 13:59 Q8 HUNTER Status: Imported from PACS Assessment & Plan - Diagnosis (1) Atrial fibrillation with rapid ventricular response Is this a current diagnosis for this admission?: Yes Plan: We started IV amiodarone loading yesterday due to episodes of wide-complex tachycardia and the patient converted to normal sinus rhythm. He looks much better today than yesterday. Recommendations: -Continue to treat underlying critical illness. -Continue with amiodarone loading. -Start Lovenox 1 mg/kg twice daily subcutaneously given his [id number] score of 3 for stroke prevention if cleared by surgery given his chest tube. (2) Coronary artery disease Qualifiers: Coronary Disease-Associated Artery/Lesion type: [place] artery Is this a current diagnosis for this admission?: Yes Plan: Details of his coronary artery disease are unknown as the patient cannot provide any of those at this moment. He is clinically doing much better today and co nverted to sinus rhythm. There has been no more episodes of wide-complex tachycardia. Recommendations: -Continue with IV amiodarone loading. -Once IV amiodarone loading is completed, transition the patient to p.o. amiodarone if he is able to swallow and does not have evidence of aspiration otherwise we will continue with IV amiodarone for another 24 to 48 hours. -We will continue to follow with you. (3) Heart valve disease Is this a current diagnosis for this admission?: Yes Plan: No details available at this point. We are still awaiting his echocardiogram. Further recommendations pending those results. (4) Pneumonia involving right lung Qualifiers: Pneumonia type: due to unspecified organism Lung location: unspecified part of lung Qualified Code(s): J18.9 - Pneumonia, unspecified organism Is this a current diagnosis for this admission?: Yes Plan: His chest x-ray looks improved after placement of chest tube. Further recommendation and management per primary team.
--- NOTE | 2020-06-20 10:00 | RADIOLOGY REPORT (SQ) ---
EXAM DESCRIPTION: CHEST SINGLE VIEW IMAGES COMPLETED DATE/TIME: 06/20/2020 9:34 am REASON FOR STUDY: chest tube COMPARISON: AP view of the chest from 06/17/2020. EXAM PARAMETERS: NUMBER OF VIEWS: One view. TECHNIQUE: An AP view of the chest was obtained. RADIATION DOSE: NA LIMITATIONS: None. FINDINGS: LUNGS AND PLEURA: The degree of opacification in the inferior aspect of the right hemithor ax has decreased after placement of a pleural drainage catheter. There is no abnormality of the left hemithorax. MEDIASTINUM AND HILAR STRUCTURES: Stable mediastinal and hilar contours. HEART AND VASCULAR STRUCTURES: Stable cardiac silhouette. BONES: No acute findings. HARDWARE: Sternotomy wires, mediastinal surgical clips, left atrial appendage occlusion device and sp inal stimulator. OTHER: No other finding. IMPRESSION: The degree of opacification in the inferior aspect of the right hemithorax has decreased after placement of a pleural drainage catheter. TECHNICAL DOCUMENTATION: JOB ID: [id number] 2010 [employer]- All Rights Reserved Reading location - IP/workstation name: [email or web address]
[2020-06-20] MEDS: ENOXAPARIN SODIUM INJ 40 MG/0.4 ML DISP.SYRIN SUBCUT SCH (10:24)
[2020-06-20] MEDS: METHYLPREDNISOLONE INJ 40 MG/1 ML SDV IV SCH ×2 (10:24→21:14)
[2020-06-20] MEDS: DEXTROSE 5%-WATER 500 ML with AMIODARONE HCL 900 MG IV PRN ×2 (10:25)
[2020-06-20] MEDS: METOPROLOL SUCCINATE 50 MG TAB.SR.24H PO SCH ×2 (10:31→21:06)
[2020-06-20] MEDS: FUROSEMIDE 20 MG TABLET PO SCH (10:31)
[2020-06-20] MEDS: GUAIFENESIN 600 MG TABLET.SA PO SCH ×2 (10:31→21:06)
[2020-06-20 10:56] LABS: HEMATOCRIT 27.3 % (37.9-51.0); HEMOGLOBIN 9.4 g/dL (13.5-17.0); MEAN CORPUSCULAR HEMOGLOBIN 28.7 pg (27.0-33.4); MEAN CORPUSCULAR HGB CONC 34.4 g/dL (32.0-36.0); MEAN CORPUSCULAR VOLUME 84 fl (80-97); PLATELET COUNT 176 10^3/uL (150-450); RED BLOOD COUNT 3.27 10^6/uL (4.35-5.55); RED CELL DISTRIBUTION WIDTH 16.5 % (11.5-14.0)
[2020-06-20 11:15] LABS: ANION GAP 9 (5-19); BLOOD UREA NITROGEN 73 mg/dL (7-20); CALCIUM 8.6 mg/dL (8.4-10.2); CARBON DIOXIDE 26 mmol/L (22-30); CHLORIDE 108 mmol/L (98-107); GLUCOSE 140 mg/dL (75-110); POTASSIUM 4.2 mmol/L (3.6-5.0)
[2020-06-20 11:31] LABS: ABSOLUTE LYMPHOCYTES# (MANUAL) 0.1 10^3/uL (0.5-4.7); BAND NEUTROPHILS % (MANUAL) 2 % (3-5); BASOPHILS % (MANUAL) 0 % (0-2); EOSINOPHILS % (MANUAL) 0 % (0-6); LYMPHOCYTES % (MANUAL) 2 % (13-45); MONOCYTES % (MANUAL) 0 % (3-13); SEGMENTED NEUTROPHILS % (MAN) 96 % (42-78); TOTAL CELLS COUNTED 100
[2020-06-20 11:32] LABS: ANISOCYTOSIS 1+; OVALOCYTES 1+; PLATELET COMMENT ADEQUATE
--- NOTE | 2020-06-20 17:47 | PDOC PROGRESS REPORT ---
Subjective Subjective:: Patient admitted for acute respiratory failure, pneumonia, chronic A. fib with acute RVR. Transferred out of ICU overnight 06/17. Patient was previously on a diltiazem and Precedex drip which were discontinued prior to transfer. Patient became acutely agitated frequently and heart rate ronni to the 140s to 120s sustained. Haldol helped with agitation momentarily but did not have a sustained effect. Ativan made agitation worse. Respiratory failure worsened as well and patient was started on BiPAP. He began pulling his BiPAP off and desaturating and was put in restraints. Heart rate briefly improved with IV me toprolol, unfortunately patient unable to take oral rate control meds while using BiPAP. Cardiology consulted. Critical care consulted to reevaluate the patient. CT scan of chest done which showed some pleural effusion possibly loculated pneumonia on the right. Radiology consulted for chest tube and fluid analysis labs were ordered along with cultures. General surgery consulted and the case was discussed with them in a stated they would like IR to perform chest tube and they would manage the chest tube thereafter. Patient cannot articulate any complaints due to agitation and using BiPAP. Troponin was positive x2 but flat, blood cultures negative, BNP up to 4000, COVID negative, sodium a bit lower at 131. 06/19/2020 Patient is waxing and waning with his clinical stability. One moment he is breathing well and somewhat alert, the next moment he is requiring BiPAP and appears very unstable as though he may need emergent intubation. This was discussed with Dr. Crocker in ICU yesterday and he would like the patient to remain on the floor for now. Also discussed case with Dr. Gerard in cardiology who agrees patient looks extremely ill at times. BP has been running low and I have discontinued the unnecessary BP meds he was sent to the ICU with. Hemoglobin is a bit lower but there are no signs of acute bleeding. Thoracentesis/chest tube has been ordered today and 100 cc of yellow fluid were removed and sent for analysis and culture. Suspect this will significantly improve the patient's respiratory status. Antibiotics have been broadened to meropenem. Blood cultures remain negative. He is still significantly tachycardic and at times showing V. tach per Dr. Gerard who is started the patient on amiodarone drip assuming BP will allow it. Patient cannot articulate any complaints today. 06/20/2020 Patient seems to have stabilized somewhat today after having his chest tube placed yesterday. Since yesterday, he has had approximately 1600 cc of mostly clear yellow fluid output. I discussed case with general surgeon Dr. Velazquez today and he is agreed to help us manage the chest tube as previous surgeon had signed off without evaluating it. Patient may need a larger chest tube if this currently small chest tube does not provide adequate drainage. I discussed the case with cardiology who will keep the patient on amiodarone drip in the short- term. Patient is a bit tired today and cannot articulate any specific complaints. Reason For Visit: PNEUMONIA, ATRIAL FIBRILLATION WITH RAPID Physical Exam Vital Signs: Temp Pulse Resp BP Pulse Ox 97.4 F 100 34 H 98/50 L 93 06/20/20 15:32 06/20/20 17:00 06/20/20 16:00 06/20/20 17:00 06/20/20 16:00 Intake & Output 06/19/20 06/20/20 06/21/20 06:59 06:59 06:59 Intake Total 220 405 345 Output Total 1225 2870 940 Balance -1005 -2465 -595 Weight 71.5 kg 85.8 kg Exam: General appearance: PRESENT: no acute distress, well-developed, well-nourished, acutely and chronically ill-appearing, seems to be a bit more comfortable today Head exam: PRESENT: atraumatic, normocephalic Eye exam: PRESENT: conjunctiva pink Mouth exam: PRESENT: moist Respiratory exam: PRESENT: Moderate mostly right-sided crackles, rales, rhonchi ABSENT: wheezes Cardiovascular exam: PRESENT: irregular rhythm, tachycardia. ABSENT: diastolic murmur, systolic murmur GI/Abdominal exam: PRESENT: normal bowel sounds, soft. ABSENT: distended, guarding, mass, organolmegaly, rebound, tenderness Neurological exam: PRESENT: alert, awake. ABSENT: oriented to person, oriented to place, oriented to time, oriented to situation Psychiatric exam: PRESENT: Calm Skin exam: PRESENT: dry, intact, warm Results Laboratory Results: 06/20/20 10:30 06/20/20 10:30 06/18/20 06/18/20 06/20/20 14:25 14:25 10:30 WBC 7.0 RBC 3.27 L Hgb 9.4 L Hct 27.3 L MCV 84 MCH 28.7 MCHC 34.4 RDW 16.5 H Plt Count 176 Seg Neutrophils % Not Reportable Sodium Potassium Chloride Carbon Dioxide Anion Gap BUN Creatinine Est GFR ( Amer) Glucose Calcium Fluid Total Protein Cancelled Fluid LDH Cancelled Fluid Amylase Cancelled 06/20/20 10:30 WBC RBC Hgb Hct MCV MCH MCHC RDW Plt Count Seg Neutrophils % Sodium 142.5 Potassium 4.2 Chloride 108 H Carbon Dioxide 26 Anion Gap 9 BUN 73 H Creatinine 0.85 Est GFR ( Amer) > 60 Glucose 140 H Calcium 8.6 Fluid Total Protein Fluid LDH Fluid Amylase 06/16/20 06/16/20 06/16/20 09:10 09:10 14:10 Creatine Kinase 63 Troponin I 0.096 0.083 NT-Pro-B Natriuret Pep 06/16/20 06/17/20 06/17/20 18:27 02:34 06:28 Creatine Kinase Troponin I 0.064 0.067 NT-Pro-B Natriuret Pep 4080 H Impressions: Chest CT 06/18/20 09:00 IMPRESSION: 1. Multifocal airspace disease throughout the right hemithorax compatible with pneumonia. [id number] associated subpulmonic effusion. 2. Cardiomegaly and coronary atherosclerosis. Head CT 06/19/20 00:00 IMPRESSION: No acute intracranial hemorrhage, mass, or evidence of acute territorial infarct. Mild chronic small vessel ischemic change. Intracranial atherosclerosis. EVIDENCE OF ACUTE STROKE: NO. Thoracentesis Ultrasound 06/19/20 00:00 IMPRESSION: SUCCESSFUL RIGHT THORACENTESIS AND CHEST TUBE PLACEMENT USING ULTRASOUND GUIDANCE. Chest X-Ray 06/20/20 08:00 IMPRESSION: The degree of opacification in the inferior aspect of the right hemithorax has decreased after placement of a pleural drainage catheter. Assessment and Plan - Diagnosis (1) Pneumonia involving right lung Qualifiers: Pneumonia type: due to unspecified organism Lung location: unspecified part of lung Qualified Code(s): J18.9 - Pneumonia, unspecified organism Is this a current diagnosis for this admission?: Yes Plan: CT chest showed extensive pneumonia involving right lung with parapneumonic effusion IR consulted for chest tube placement, done on 06/19 Pleural fluid sent for chemistry analysis and bacterial cultures and fungal cultures, follow-up results General surgery consulted for chest tube management, discussed with them and they have agreed to follow along Broaden antibiotics to meropenem Respiratory culture pending Blood cultures negative 06/20/2020 Continued on meropenem General surgery consulted again for tube management as the previous physician and signed off without evaluating the tube, Dr. Velazquez has agreed to follow with us today. 1600 cc of yellow fluid out since placement (2) Atrial fibrillation with rapid ventricular response Is this a current diagnosis for this admission?: Yes Plan: Diltiazem p.o. and metoprolol p.o., unable to take these while using BiPAP and agitated IV as needed metoprolol for heart rate greater than 110 bpm Cardiology consult Echocardiogram Occasional V. tach noted on telemetry per cardiology, started on amiodarone drip as BP allows Continued on amiodarone drip per cardiology (3) COPD (chronic obstructive pulmonary disease) Qualifiers: COPD type: COPD with acute lower respiratory infection Qualified Code(s): J44.0 - Chronic obstructive pulmonary disease with (acute) lower respiratory infection Is this a current diagnosis for this admission?: Yes (4) Acute metabolic encephalopathy Is this a current diagnosis for this admission?: Yes - Time Time Spent with patient: 35 or more minutes Medications reviewed and adjusted accordingly: Yes Anticipated Discharge Disposition: Senior Living Facility Anticipated Discharge Timeframe: within 72 hours - Inpatient Certification Based on my medical assessment, after consideration of the patient's comorbidities, presenting symptoms, or acuity I expect that the services needed warrant INPATIENT care.: Yes I certify that my determination is in accordance with my understanding of Medicare's requirements for reasonable and necessary INPATIENT services [42 CFR 412.3e].: Yes Medical Necessity: Significant Comorbidiites Make Outpatient Treatment Too Risky, Need Close Monitoring Due to Risk of Patient Decompensation, Need for IV Antibiotics, Risk of Complication if Not Cared For in Hospital, Risk of Diagnosis Which Will Require Inpatient Eval/Care/Monitoring
--- NOTE | 2020-06-20 19:43 | PDOC PROGRESS REPORT ---
Subjective Subjective:: This is a duplicate note. Please disregard. Physical Exam Vital Signs: Temp Pulse Resp BP Pulse Ox 97.4 F 89 34 H 109/66 93 06/20/20 15:32 06/20/20 18:00 06/20/20 16:00 06/20/20 18:00 06/20/20 16:00 Intake & Output 06/19/20 06/20/20 06/21/20 06:59 06:59 06:59 Intake Total 220 405 345 Output Total 7814 6390 1103 Balance -6232 -3095 -758 Weight 71.5 kg 85.8 kg Results Laboratory Results: 06/20/20 10:30 06/20/20 10:30 06/18/20 06/18/20 06/20/20 14:25 14:25 10:30 WBC 7.0 RBC 3.27 L Hgb 9.4 L Hct 27.3 L MCV 84 MCH 28.7 MCHC 34.4 RDW 16.5 H Plt Count 176 Seg Neutrophils % Not Reportable Sodium Potassium Chloride Carbon Dioxide Anion Gap BUN Creatinine Est GFR ( Amer) Glucose Calcium Fluid Total Protein Cancelled Fluid LDH Cancelled Fluid Amylase Cancelled 06/20/20 10:30 WBC RBC Hgb Hct MCV MCH MCHC RDW Plt Count Seg Neutrophils % Sodium 142.5 Potassium 4.2 Chloride 108 H Carbon Dioxide 26 Anion Gap 9 BUN 73 H Creatinine 0.85 Est GFR ( Amer) > 60 Glucose 140 H Calcium 8.6 Fluid Total Protein Fluid LDH Fluid Amylase 06/16/20 06/16/20 06/16/20 09:10 09:10 14:10 Creatine Kinase 63 Troponin I 0.096 0.083 NT-Pro-B Natriuret Pep 06/16/20 06/17/20 06/17/20 18:27 02:34 06:28 Creatine Kinase Troponin I 0.064 0.067 NT-Pro-B Natriuret Pep 4080 H Impressions: Chest CT 06/18/20 09:00 IMPRESSION: 1. Multifocal airspace disease throughout the right hemithorax compatible with pneumonia. [id number] associated subpulmonic effusion. 2. Cardiomegaly and coronary atherosclerosis. Head CT 06/19/20 00:00 IMPRESSION: No acute intracranial hemorrhage, mass, or evidence of acute territorial infarct. Mild chronic small vessel ischemic change. Intracranial atherosclerosis. EVIDENCE OF ACUTE STROKE: NO. Thoracentesis Ultrasound 06/19/20 00:00 IMPRESSION: SUCCESSFUL RIGHT THORACENTESIS AND CHEST TUBE PLACEMENT USING ULTRASOUND GUIDANCE. Chest X-Ray 06/20/20 08:00 IMPRESSION: The degree of opacification in the inferior aspect of the right hemithorax has decreased after placement of a pleural drainage catheter. Assessment & Plan - Time Anticipated Discharge Disposition: unknown Anticipated Discharge Timeframe: unknown
--- NOTE | 2020-06-20 19:51 | PDOC PROGRESS REPORT ---
Subjective Progress Note for:: 06/20/20 Subjective:: 75-year-old confused male with a pleural effusion of unknown etiology. Per the medical record, he has had multiple thoracentesis in the past. Currently, the assumption is that he has a parapneumonic effusion. He has a long cardiac history. Currently the patient is confused, and reliable review of systems is unable to be obtained. Reason For Visit: PNEUMONIA, ATRIAL FIBRILLATION WITH RAPID Physical Exam Vital Signs: Temp Pulse Resp BP Pulse Ox 97.4 F 89 34 H 109/66 93 06/20/20 15:32 06/20/20 18:00 06/20/20 16:00 06/20/20 18:00 06/20/20 16:00 Intake & Output 06/19/20 06/20/20 06/21/20 06:59 06:59 06:59 Intake Total 220 405 345 Output Total 1225 2870 1103 Balance -1005 -2465 -758 Weight 71.5 kg 85.8 kg General appearance: PRESENT: disheveled, other - Confused Head exam: PRESENT: normocephalic, other - BiPAP in place Eye exam: ABSENT: scleral icterus Mouth exam: PRESENT: neck supple Neck exam: ABSENT: tracheal deviation, tracheostomy Respiratory exam: PRESENT: other - Coarse breath sounds bilaterally. Right tube thoracostomy is in place. Large amount of serosanguineous drainage (approximately 300 cc over the first shift today). GI/Abdominal exam: PRESENT: soft. ABSENT: tenderness Rectal exam: PRESENT: deferred Extremities exam: ABSENT: clubbing Musculoskeletal exam: ABSENT: deformity Neurological exam: PRESENT: awake. ABSENT: alert, oriented to person, oriented to place, oriented to time, oriented to situation Psychiatric exam: PRESENT: agitated, anxious Skin exam: ABSENT: cyanosis, jaundice Results Laboratory Results: 06/20/20 10:30 06/20/20 10:30 06/18/20 06/18/20 06/20/20 14:25 14:25 10:30 WBC 7.0 RBC 3.27 L Hgb 9.4 L Hct 27.3 L MCV 84 MCH 28.7 MCHC 34.4 RDW 16.5 H Plt Count 176 Seg Neutrophils % Not Reportable Sodium Potassium Chloride Carbon Dioxide Anion Gap BUN Creatinine Est GFR ( Amer) Glucose Calcium Fluid Total Protein Cancelled Fluid LDH Cancelled Fluid Amylase Cancelled 06/20/20 10:30 WBC RBC Hgb Hct MCV MCH MCHC RDW Plt Count Seg Neutrophils % Sodium 142.5 Potassium 4.2 Chloride 108 H Carbon Dioxide 26 Anion Gap 9 BUN 73 H Creatinine 0.85 Est GFR ( Amer) > 60 Glucose 140 H Calcium 8.6 Fluid Total Protein Fluid LDH Fluid Amylase 06/16/20 06/16/20 06/16/20 09:10 09:10 14:10 Creatine Kinase 63 Troponin I 0.096 0.083 NT-Pro-B Natriuret Pep 06/16/20 06/17/20 06/17/20 18:27 02:34 06:28 Creatine Kinase Troponin I 0.064 0.067 NT-Pro-B Natriuret Pep 4080 H Impressions: Chest CT 06/18/20 09:00 IMPRESSION: 1. Multifocal airspace disease throughout the right hemithorax compatible with pneumonia. [id number] associated subpulmonic effusion. 2. Cardiomegaly and coronary atherosclerosis. Head CT 06/19/20 00:00 IMPRESSION: No acute intracranial hemorrhage, mass, or evidence of acute territorial infarct. Mild chronic small vessel ischemic change. Intracranial atherosclerosis. EVIDENCE OF ACUTE STROKE: NO. Thoracentesis Ultrasound 06/19/20 00:00 IMPRESSION: SUCCESSFUL RIGHT THORACENTESIS AND CHEST TUBE PLACEMENT USING ULT RASOUND GUIDANCE. Chest X-Ray 06/20/20 08:00 IMPRESSION: The degree of opacification in the inferior aspect of the right hemithorax has decreased after placement of a pleural drainage catheter. Assessment & Plan - Diagnosis (1) Pleural effusion Is this a current diagnosis for this admission?: Yes - Time Anticipated Discharge Disposition: unknown Anticipated Discharge Timeframe: unknown - Plan Summary Plan Summary: This is a 75-year-old male with a right-sided pleural effusion. The patient has diagnosis of pneumonia, but this is not the only possible reason for a persist ent pleural effusion. Awaiting echocardiography, as congestive heart failure may also play a role. Unfortunately, the amount of pleural fluid coming from the tube is excessive. The tube cannot be removed until a 24-hour total is less than 150 cc. I see no evidence for empyema at present. Treatment of the underlying medical condition is essential for resolution of his pleural effusion. Surgery will follow, and remove the tube when it is appropriate. Continue with medical management.
[2020-06-20] MEDS ORDERED: MEROPENEM 1 GM VIAL ONE (23:13)
[2020-06-21] MEDS: IPRATROPIUM/ALBUTEROL 0.5-2.5 MG/3 ML AMPUL NEB SCH ×6 (00:22→20:37)
[2020-06-21] MEDS: MORPHINE SULFATE 10 MG/ML INJ IV PRN ×4 (01:53→15:29)
[2020-06-21] MEDS: DULOXETINE HCL 30 MG CAPSULE.DR PO SCH ×3 (05:11→21:12)
[2020-06-21] MEDS: PANTOPRAZOLE SODIUM 40 MG TABLET.DR PO SCH (05:11)
[2020-06-21] MEDS: MEROPENEM 1 GM in NORMAL SALINE 50 ML IV SCH ×3 (06:24→21:40)
[2020-06-21 06:28] LABS: HEMATOCRIT 27.9 % (37.9-51.0); HEMOGLOBIN 9.3 g/dL (13.5-17.0); MEAN CORPUSCULAR HGB CONC 33.5 g/dL (32.0-36.0); MEAN CORPUSCULAR VOLUME 84 fl (80-97); PLATELET COUNT 159 10^3/uL (150-450); RED BLOOD COUNT 3.33 10^6/uL (4.35-5.55); RED CELL DISTRIBUTION WIDTH 16.3 % (11.5-14.0); WHITE BLOOD COUNT 3.8 10^3/uL (4.0-10.5)
[2020-06-21 06:41] LABS: ANION GAP 8 (5-19); BLOOD UREA NITROGEN 74 mg/dL (7-20); CALCIUM 8.6 mg/dL (8.4-10.2); CARBON DIOXIDE 29 mmol/L (22-30); CHLORIDE 109 mmol/L (98-107); GLUCOSE 156 mg/dL (75-110); POTASSIUM 4.4 mmol/L (3.6-5.0)
[2020-06-21 07:01] LABS: BAND NEUTROPHILS % (MANUAL) 1 % (3-5); BASOPHILS % (MANUAL) 0 % (0-2); EOSINOPHILS % (MANUAL) 0 % (0-6); LYMPHOCYTES % (MANUAL) 0 % (13-45); MONOCYTES % (MANUAL) 0 % (3-13); SEGMENTED NEUTROPHILS % (MAN) 99 % (42-78); TOTAL CELLS COUNTED 100
[2020-06-21 07:05] LABS: ANISOCYTOSIS 1+; OVALOCYTES SLIGHT; PLATELET COMMENT ADEQUATE
--- NOTE | 2020-06-21 07:54 | PDOC PROGRESS REPORT ---
Subjective Progress Note for:: 06/21/20 Subjective:: OUSMANE HOWELL is a 75 year old male who is consulted to our service for further evaluation of atrial fibrillation. The patient is on BiPAP and unable to answer questions therefore the following history is obtained from reviewing his inpatient chart. Unfortunately the patient cannot provide any details of his history however it includes CAD s/p CABG, atrial fibrillation s/p MAZE and LALY ligation, right pleural effusion s/p several thoracentesis at [facility] and COPD. He was admitted on JUN 07 for progressively worse dyspnea and sputum production and eventually diagnosed with a significant right sided pneumonia. In the ED he was noted to be in respiratory distress, BiPAP was started and he was admitted to the ICU as it was thought that he was at an elevated risk for intubation. In the ICU he had episodes of delirium and was c ombative. He eventually improved and his afib was well controlled. He was then transferred out of the ICU earlier today. Unfortunately, he became combative, developed more dyspnea, his BP decreased and has had episodes of rapid atrial fibrillation with rates between 110 and 120 bpm which worsens up to 140's when he is agitated and combative. 06/21/2020: The patient had an uneventful night but unfortunately his atrial fibrillation recurred and he is now experiencing paroxysmal A. fib with a controlled ventricular rate. He continues to be on amiodarone drip as he is unable to take p.o. yet. His net fluid balance is -4.733 L, 1.923 L of which are from his chest tube. He continues to require BiPAP however this morning he understands my questions and nods his head yes or no to specific questions. He shook his head no when asked about chest pain or shortness of breath, he shook his head yes when asked if he was hungry or thirsty. Of note his BUN to creatinine ratio is elevated and likely secondary to dehydration as he had been n.p.o. for several days now. Physical exam on 06/21/2020: GENERAL: Sleeping comfortably, on BiPAP without any respiratory distress. Opens eyes to commands and shakes his head yes or no to specific questions. HEENT: Normocephalic, atraumatic. Oropharynx is dry. NECK: No JVD. No carotid bruits. LUNGS: Clear to auscultation bilaterally. CARDIOVASCULAR: Irregularly irregular rate and rhythm, no rubs, or gallops. PMI not displaced. EXTREMITIES: No edema, no cyanosis, no clubbing. +2 pulses femoral and pedal pulses bilaterally. SKIN: No lesions or rashes. MUSCULOSKELETAL: No chest tenderness to palpation. Reason For Visit: PNEUMONIA, ATRIAL FIBRILLATION WITH RAPID Physical Exam Vital Signs: Temp Pulse Resp BP Pulse Ox 97.5 F 86 26 H 101/71 99 06/21/20 04:03 06/21/20 04:52 06/21/20 04:52 06/21/20 04:03 06/21/20 04:52 Intake & Output 06/19/20 06/20/20 06/21/20 06:59 06:59 06:59 Intake Total 220 405 395 Output Total 1227 0130 1803 Balance -5753 -7434 -7529 Weight 71.5 kg 85.8 kg 65.2 kg Results Laboratory Results: 06/18/20 06/18/20 06/20/20 14:25 14:25 10:30 WBC 7.0 RBC 3.27 L Hgb 9.4 L Hct 27.3 L MCV 84 MCH 28.7 MCHC 34.4 RDW 16.5 H Plt Count 176 Seg Neutrophils % Not Reportable Sodium Potassium Chloride Carbon Dioxide Anion Gap BUN Creatinine Est GFR ( Amer) Glucose Calcium Fluid Total Protein Cancelled Fluid LDH Cancelled Fluid Amylase Cancelled 06/20/20 10:30 WBC RBC Hgb Hct MCV MCH MCHC RDW Plt Count Seg Neutrophils % Sodium 142.5 Potassium 4.2 Chloride 108 H Carbon Dioxide 26 Anion Gap 9 BUN 73 H Creatinine 0.85 Est GFR ( Amer) > 60 Glucose 140 H Calcium 8.6 Fluid Total Protein Fluid LDH Fluid Amylase 06/16/20 06/16/20 06/16/20 09:10 09:10 14:10 Creatine Kinase 63 Troponin I 0.096 0.083 NT-Pro-B Natriuret Pep 06/16/20 06/17/20 06/17/20 18:27 02:34 06:28 Creatine Kinase Troponin I 0.064 0.067 NT-Pro-B Natriuret Pep 4080 H Impressions: Chest CT 06/18/20 09:00 IMPRESSION: 1. Multifocal airspace disease throughout the right hemithorax compatible with pneumonia. [id number] associated subpulmonic effusion. 2. Cardiomegaly and coronary atherosclerosis. Head CT 06/19/20 00:00 IMPRESSION: No acute intracranial hemorrhage, mass, or evidence of acute territorial infarct. Mild chronic small vessel ischemic change. Intracranial atherosclerosis. EVIDENCE OF ACUTE STROKE: NO. Thoracentesis Ultrasound 06/19/20 00:00 IMPRESSION: SUCCESSFUL RIGHT THORACENTESIS AND CHEST TUBE PLACEMENT USING ULTRASOUND GUIDANCE. Chest X-Ray 06/20/20 08:00 IMPRESSION: The degree of opacification in the inferior aspect of the right hemithorax has decreased after placement of a pleural drainage catheter. MCV 84 fl (80-97) 06/20/20 10:30 MCH 28.7 pg (27.0-33.4) 06/20/20 10:30 MCHC 34.4 g/dL (32.0-36.0) 06/20/20 10:30 RDW 16.5 % (11.5-14.0) H 06/20/20 10:30 Seg Neutrophils % Not Reportable 06/20/20 10:30 Carbonic Acid 1.21 mmol/L (1.05-1.35) 06/18/20 09:03 HCO3/H2CO3 Ratio 18:1 06/18/20 09:03 ABG pH 7.36 (7.35-7.45) 06/18/20 09:03 ABG pCO2 40.2 mmHg (35-45) 06/18/20 09:03 ABG pO2 59.5 mmHg (80-100) L 06/18/20 09:03 ABG HCO3 21.9 mmol/L (20-24) 06/18/20 09:03 ABG O2 Saturation 89.8 % (94-98) L 06/18/20 09:03 ABG Base Excess -3.3 mmol/L 06/18/20 09:03 VBG pH 7.42 (7.30-7.42) 06/16/20 09:00 VBG pCO2 40.8 mmHg (35-63) 06/16/20 09:00 VBG HCO3 26.1 mmol/L (20-32) 06/16/20 09:00 VBG Base Excess 1.6 mmol/L 06/16/20 09:00 FiO2 6L 06/18/20 09:03 Chloride 108 mmol/L (98-107) H 06/20/20 10:30 Carbon Dioxide 26 mmol/L (22-30) 06/20/20 10:30 Anion Gap 9 (5-19) 06/20/20 10:30 Est GFR ( Amer) > 60 (>60) 06/20/20 10:30 Glucose 140 mg/dL (75-110) H 06/20/20 10:30 Lactic Acid 2.3 mmol/L (0.7-2.1) H 06/16/20 09:00 Calcium 8.6 mg/dL (8.4-10.2) 06/20/20 10:30 Magnesium 2.4 mg/dL (1.6-2.3) H 06/17/20 06:28 Ferritin 494.00 ng/mL (17.9-464.0) H 06/16/20 09:10 Total Bilirubin 3.8 mg/dL (0.2-1.3) H 06/16/20 09:00 AST 107 U/L (17-59) H 06/16/20 09:00 Alkaline Phosphatase 144 U/L (38-126) H 06/16/20 09:00 Total Protein 4.6 g/dL (6.3-8.2) L 06/18/20 16:27 Albumin 2.6 g/dL (3.5-5.0) L 06/16/20 09:00 Triglycerides 112 mg/dL (<150) 06/17/20 06:28 Cholesterol 51.72 mg/dL (0-200) 06/17/20 06:28 LDL Cholesterol Direct < 30 mg/dL (<100) 06/17/20 06:28 VLDL Cholesterol 22.0 mg/dL (10-31) 06/17/20 06:28 HDL Cholesterol 9 mg/dL (>40) L 06/17/20 06:28 TSH 0.45 uIU/mL (0.47-4.68) L 06/17/20 06:28 Urine Color CANDELARIO 06/16/20 14:25 Urine Appearance CLOUDY 06/16/20 14:25 Urine pH 5.0 (5.0-9.0) 06/16/20 14:25 Ur Specific [place] 1.019 06/16/20 14:25 Urine Protein 100 mg/dL (NEGATIVE) H 06/16/20 14:25 Urine Glucose (UA) NEGATIVE mg/dL (NEGATIVE) 06/16/20 14:25 Urine Ketones NEGATIVE mg/dL (NEGATIVE) 06/16/20 14:25 Urine Blood SMALL (NEGATIVE) H 06/16/20 14:25 Urine Nitrite NEGATIVE (NEGATIVE) 06/16/20 14:25 Ur Leukocyte Esterase NEGATIVE (NEGATIVE) 06/16/20 14:25 Urine WBC (Auto) 3 /HPF 06/16/20 14:25 Urine RBC (Auto) 1 /HPF 06/16/20 14:25 Fluid Type PLEURAL 06/19/20 14:25 Fluid Source LUNG 06/19/20 14:25 Fluid Color YELLOW 06/19/20 14:25 Fluid Appearance SLIGHTLY HAZY 06/19/20 14:25 Fluid Viscosity LIQUID 06/19/20 14:25 Fluid WBC 380 /uL 06/19/20 14:25 Fluid RBC 1235 /uL 06/19/20 14:25 Fluid Total Protein Cancelled 06/18/20 14:25 Fluid LDH Cancelled 06/18/20 14:25 Fluid Amylase Cancelled 06/18/20 14:25 06/16/20 06/16/20 06/16/20 09:10 09:10 14:10 Creatine Kinase 63 Troponin I 0.096 0.083 NT-Pro-B Natriuret Pep 06/16/20 06/17/20 06/17/20 18:27 02:34 06:28 Creatine Kinase Troponin I 0.064 0.067 NT-Pro-B Natriuret Pep 4080 H Current Medication List Generic Name Dose Route Start Last Admin Trade Name Freq PRN Reason Stop Dose Admin Albuterol/Ipratropium 3 ml 06/16/20 14:30 06/21/20 04:52 Duoneb 3 Ml Ampul NEB 07/16/20 14:29 3 ml RTQ4 HUNTER Administration Albuterol/Ipratropium 3 ml 06/18/20 15:38 Duoneb 3 Ml Ampul NEB 07/18/20 15:37 RTQ2HP PRN SHORTNESS OF BREATH Dextrose 12.5 gm 06/18/20 15:42 Dextrose Inj 50% Syringe (25 Gm/50 Ml) IV 07/18/20 15:41 PRN PRN FOR BG 50-69 IN ALERT PATIENT Protocol Dextrose 25 gm 06/18/20 15:42 Dextrose Inj 50% Syringe (25 Gm/50 Ml) IV 07/18/20 15:41 PRN PRN See Label Comments Protocol Diltiazem HCl 240 mg 06/16/20 16:00 06/18/20 12:09 Cardizem Cd 240 Mg Capsule.Cr PO 07/16/20 15:59 Not Given DAILY HUNTER Duloxetine HCl 30 mg 06/16/20 22:00 06/21/20 05:11 Cymbalta 30 Mg Capsule.Dr PO 07/16/20 21:59 Not Given Q8 HUNTER Enoxaparin Sodium 40 mg 06/16/20 14:00 06/20/20 10:24 Lovenox Inj 40 Mg/0.4 Ml Disp.Syrin SUBCUT 07/16/20 13:59 40 mg DAILY HUNTER Administration Furosemide 20 mg 06/17/20 10:00 06/20/20 10:31 Lasix 20 Mg Tablet PO 07/17/20 09:59 Not Given DAILY HUNTER Glucagon 1 mg 06/18/20 15:42 Glucagen Inj 1 Mg Vial SUBCUT 07/18/20 15:41 PRN PRN Evaluate for BG < 70 Protocol Glucose 15 gm 06/18/20 15:42 Glutose 40% Gel 15 Gm Tube PO 07/18/20 15:41 PRN PRN For BG 50-69 in Alert Patient Protocol Glucose 30 gm 06/18/20 15:42 Glutose 40% Gel 15 Gm Tube PO 07/18/20 15:41 PRN PRN FOR BG < 50 IN ALERT PATIENT Protocol Guaifenesin 600 mg 06/16/20 22:00 06/20/20 21:06 Mucinex Sr 600 Mg Tablet.Sa PO 07/16/20 21:59 Not Given Q12 HUNTER Haloperidol Lactate 2 mg 06/18/20 08:55 06/19/20 20:35 Haldol 5 Mg/Ml Inj 1 Ml Vial IV 07/18/20 08:54 2 mg Q6HP PRN Administration RESTLESSNESS/AGITATION Meropenem 1 gm/ Sodium 50 mls @ 100 mls/hr 06/18/20 15:30 06/21/20 01:08 Chloride IV 06/25/20 15:29 Infused Q8 HUNTER Infusion Amiodarone HCl 900 mg/ 500 mls @ 0 mls/hr 06/19/20 10:00 06/20/20 10:25 Dextrose IV 06/22/20 09:59 16.7 mls/hr CONTINUOUS PRN 16.7 mls/hr THIS MED IS NOT "PRN" Administration Protocol Per Protocol Methylprednisolone Sodium Succinate 40 mg 06/16/20 22:00 06/20/20 21:14 Solu-Medrol Inj/Pf 40 Mg/1 Ml Sdv IV 07/16/20 21:59 40 mg Q12 HUNTER Administration Metoprolol Succinate 50 mg 06/18/20 10:00 06/20/20 21:06 Toprol Xl 50 Mg Tab.Sr PO 07/18/20 09:59 Not Given Q12 HUNTER Metoprolol Tartrate 5 mg 06/18/20 15:46 06/19/20 15:06 Lopressor Inj/Pf 5 Mg/5 Ml Sdv IV 07/18/20 15:41 5 mg Q4HP PRN Administration HR >110 Morphine Sulfate 4 mg 06/19/20 22:00 06/21/20 05:08 Morphine 10 Mg/Ml Inj IV 06/26/20 21:59 4 mg Q2HP PRN Administration FOR PAIN Pantoprazole Sodium 40 mg 06/17/20 06:00 06/21/20 05:[address] Tablet PO 07/17/20 05:59 Not Given Q6AM HUNTER Sodium Chloride 2.5 ml 06/16/20 14:00 06/21/20 05:11 Saline Flush 2.5 Ml Monoject Prefil Syrin IV 07/16/20 13:59 2.5 ml Q8 HUNTER Administration Discontinued Medications Generic Name Dose Route Start Last Admin Trade Name Freq PRN Reason Stop Dose Admin Acetaminophen 975 mg 06/16/20 09:36 06/16/20 09:56 Tylenol 325 Mg Tablet PO 06/16/20 09:37 975 mg NOW ONE Administration Dextrose 12.5 gm 06/16/20 13:10 Dextrose Inj 50% Syringe (25 Gm/50 Ml) IV 07/16/20 13:09 PRN PRN FOR BG 50-69 IN ALERT PATIENT Protocol Dextrose 25 gm 06/16/20 13:10 Dextrose Inj 50% Syringe (25 Gm/50 Ml) IV 07/16/20 13:09 PRN PRN See Label Comments Protocol Doxazosin Mesylate 2 mg 06/16/20 22:00 06/18/20 21:34 Cardura 2 Mg Tablet PO 07/16/20 21:59 Not Given QHS HUNTER Furosemide 40 mg 06/16/20 21:55 06/16/20 22:38 Lasix Inj/Pf 40 Mg/4 Ml Sdv IV 06/16/20 21:56 Not Given NOW ONE Furosemide Confirm 06/16/20 22:01 06/16/20 22:08 Lasix Inj/Pf 40 Mg/4 Ml Sdv Administered 06/16/20 22:02 40 mg Dose Administration 40 mg .ROUTE .STK-MED ONE Glucagon 1 mg 06/16/20 13:10 Glucagen Inj 1 Mg Vial SUBCUT 07/16/20 13:09 PRN PRN Evaluate for BG < 70 Protocol Glucose 15 gm 06/16/20 13:10 Glutose 40% Gel 15 Gm Tube PO 07/16/20 13:09 PRN PRN For BG 50-69 in Alert Patient Protocol Glucose 30 gm 06/16/20 13:10 Glutose 40% Gel 15 Gm Tube PO 07/16/20 13:09 PRN PRN FOR BG < 50 IN ALERT PATIENT Protocol Haloperidol Lactate 2 mg 06/18/20 06:45 06/18/20 06:46 Haldol 5 Mg/Ml Inj 1 Ml Vial IM 06/18/20 06:46 2 mg NOW ONE Administration Hydralazine HCl 50 mg 06/16/20 22:00 06/19/20 06:19 Apresoline 50 Mg Tablet PO 07/16/20 21:59 Not Given Q8 HUNTER Diltiazem HCl 125 mg in 125 mls @ 0 mls/hr 06/16/20 09:31 06/16/20 18:00 Cardizem Rtu Inj 125 Mg-D5w 125 Ml Premix IV 07/16/20 09:30 2.5 mls/hr CONTINUOUS PRN 2.5 mls/hr THIS MED IS NOT "PRN" Titration Protocol Titrate Levofloxacin/Dextrose 750 mg in 150 mls @ 100 mls/hr 06/16/20 09:39 06/16/20 11:27 Levaquin Rtu 750 Mg/D5w 150 Ml Premix IV 06/16/20 11:08 Infused NOW ONE Infusion Sodium Chloride 1,000 mls @ 0 mls/hr 06/16/20 09:50 06/16/20 10:58 Nacl 0.9% 1000 Ml Iv Soln IV 06/16/20 09:51 Infused BOLUS ONE Infusion Wide Open Sodium Chloride 1,000 mls @ 0 mls/hr 06/16/20 10:14 06/16/20 11:46 Nacl 0.9% 1000 Ml Iv Soln IV 06/16/20 10:15 Infused BOLUS ONE Infusion Wide Open Dexmedetomidine/Sodium Chloride Confirm 06/16/20 13:10 06/16/20 19:08 Precedex 400 Mcg/Ns 100 Ml Iv Premix Administered 06/16/20 13:11 Not Given Dose 400 mcg in 100 mls @ ud IV .STK-MED ONE Dexmedetomidine/Sodium Chloride 400 mcg in 100 mls @ 7.57 mls/hr 06/16/20 13:16 06/17/20 22:49 Precedex 400 Mcg/Ns 100 Ml Iv Premix IV 07/16/20 13:15 Infused CONTINUOUS PRN Titration THIS MED IS NOT "PRN" Protocol 0.4 MCG/KG/HR Levofloxacin/Dextrose 750 mg in 150 mls @ 100 mls/hr 06/17/20 10:00 06/18/20 12:09 Levaquin Rtu 750 Mg/D5w 150 Ml Premix IV 06/24/20 09:59 Infused DAILY HUNTER Infusion Amiodarone HCl 150 mg/ 100 mls @ 600 mls/hr 06/19/20 10:00 06/19/20 09:43 Dextrose IV 06/19/20 10:09 600 mls/hr NOW ONE Administration Lorazepam 0.5 mg 06/16/20 10:33 06/16/20 10:38 Ativan Inj 2 Mg/1 Ml Vial IV 06/16/20 10:34 0.5 mg NOW ONE Administration Lorazepam 0.5 mg 06/18/20 01:33 06/18/20 02:00 Ativan Inj 2 Mg/1 Ml Vial IV 06/25/20 01:32 0.5 mg Q3HP PRN Administration ANXIETY/AGITATION Meropenem 1 gm 06/18/20 14:00 Merrem 1 Gm Vial IV 06/25/20 13:59 Q8 HUNTER Meropenem Confirm 06/20/20 23:13 06/20/20 23:57 Merrem 1 Gm Vial Administered 06/20/20 23:14 Not Given Dose 1 gm .ROUTE .STK-MED ONE Metoprolol Tartrate 5 mg 06/18/20 09:51 06/18/20 10:25 Lopressor Inj/Pf 5 Mg/5 Ml Sdv IV 07/18/20 09:50 5 mg Q6HP PRN Administration HR >110 Morphine Sulfate 1 mg 06/19/20 02:27 06/19/20 06:26 Morphine 10 Mg/Ml Inj IV 06/19/20 02:28 Not Given NOW ONE Scopolamine HBr 1 each 06/19/20 02:24 06/19/20 06:26 Transderm-Scop 1.5 Mg Patch TD 06/19/20 02:25 Not Given NOW ONE Sodium Chloride 2.5 ml 06/16/20 14:00 Saline Flush 2.5 Ml Monoject Prefil Syrin IV 07/16/20 13:59 Q8 [facility] Assessment & Plan - Diagnosis (1) Atrial fibrillation with rapid ventricular response Is this a current diagnosis for this admission?: Yes Plan: The patient is currently in paroxysmal atrial fibrillation with a well- controlled heart rate. Unfortunately he is unable to take p.o. yet therefore we will continue his amiodarone drip at low-dose to prevent further episodes of wide-complex tachycardia as well as to keep his atrial fibrillation under control. He appears to be dehydrated with a high BUN to creatinine ratio however he is definitely improved, understands questions and answers them shaking his head yes or no. Recommendations: -Continue with amiodarone drip for now. -Start Lovenox 1 mg/kg twice daily subcutaneously given his [id number] score of 3 for stroke prevention if cleared by surgery given his chest tube. -Strongly suggest nutrition consult to to specifically consider either parenteral or enteral nutrition. -Strongly suggest gentle IV hydration as the patient is clinically dehydrated with an elevated BUN to creatinine ratio. (2) Coronary artery disease Qualifiers: Coronary Disease-Associated Artery/Lesion type: [place] artery Is this a current diagnosis for this admission?: Yes Plan: Details of his coronary artery disease are unknown as the patient cannot provide any of those at this moment. He is clinically doing much better today. There has been no recurrence of wide-complex tachycardia in the past 24 hours on his telemetry. Recommendations: -Continue with IV amiodarone. -Transition IV amiodarone to p.o. amiodarone 400 mg twice daily when the patient is able to tolerate p.o. -Start Toprol 12.5 mg p.o. daily when patient is able to tolerate p.o. -We will continue to follow with you. (3) Heart valve disease Is this a current diagnosis for this admission?: Yes Plan: No details available at this point. We are still awaiting his echocardiogram. Further recommendations pending those results. (4) Pneumonia involving right lung Qualifiers: Pneumonia type: due to unspecified organism Lung location: unspecified part of lung Qualified Code(s): J18.9 - Pneumonia, unspecified organism Is this a current diagnosis for this admission?: Yes Plan: His chest x-ray looks improved after placement of chest tube. It appears that the chest tube output is significantly decreased since yesterday. His further recommendation and management per hospitalist and surgery teams.
[2020-06-21] MEDS: FUROSEMIDE 20 MG TABLET PO SCH (09:27)
[2020-06-21] MEDS: GUAIFENESIN 600 MG TABLET.SA PO SCH ×2 (09:28→21:12)
[2020-06-21] MEDS: METOPROLOL SUCCINATE 50 MG TAB.SR.24H PO SCH ×2 (09:28→21:13)
[2020-06-21] MEDS: ENOXAPARIN SODIUM INJ 40 MG/0.4 ML DISP.SYRIN SUBCUT SCH (09:31)
[2020-06-21] MEDS: METHYLPREDNISOLONE INJ 40 MG/1 ML SDV IV SCH ×2 (09:31→21:40)
[2020-06-21 13:10] LABS: TOTAL PROTEIN BODY FLUID 2.5 g/dL (.)
[2020-06-21] MEDS: DEXTROSE 5%-WATER 500 ML with AMIODARONE HCL 900 MG IV PRN ×2 (13:14)
--- NOTE | 2020-06-21 15:50 | XCELERA REPORT ---
[address] [address] Transthoracic Echocardiogram Report Name: OUSMANE HOWELL Age: 75 yrs Gender: Male : 1945 Patient Status: Inpatient Patient Location: [address] [place], [place] [id number] Study Date: 06/20/2020 07:37 PM Height: 67 in Weight: 164 lb BSA: 1.9 m2 Procedure: A two-dimensional transthoracic echocardiogram with color flow and Doppler was performed. Study Quality: Poor. Reason For Study: CHF History: CHF. Ordering Physician: OLYA PUGH Performed By: Janet Rosen Interpretation Summary The left ventricle is mildly dilated. There is mild to moderate concentric left ventricular hypertrophy. LV EF is 35% Left ventricular systolic function is moderate to severely reduced. There is moderate to severe global hypokinesis of the left ventricle. No ASD,VSD or PFO seen. There is no thrombus. The right ventricle is grossly normal size. The right atrium is normal. The left atrium is mildly dilated. There is mild to moderate mitral annular calcification. There is no evidence of mitral valve prolapse. There is no vegetation seen on the mitral valve. There is no mitral valve stenosis. There is a mild amount of mitral regurgitation There is no aortic valvular vegetation. There is mild to moderate aortic stenosis There is a peak gradient of 25 mm of Hg , and mean gradient of 11mm of Hg. mm of Hg. No aortic regurgitation is present. There is no tricuspid stenosis. There is a mild to moderate amount of tricuspid regurgitation Upper normal to mild Pulmonaary hypertension.RVSP is 30 to 35 mm of Hg , with RA mean of 15 to 20. There is no pulmonic valvular stenosis. There is no pulmonic valvular regurgitation. The aortic root is not well visualized but is probably normal size. The inferior vena cava appeared dilated and decreased < 50% with respiration (RAP 15-20 mmHg) There is no pericardial effusion. MMode/2D Measurements & Calculations RVDd: 3.2 cm LVIDd: 4.6 cm FS: 7.8 % Ao root diam: 2.5 cm IVSd: 1.3 cm LVIDs: 4.3 cm EDV(Teich): 98.0 ml Ao root area: 4.9 cm2 LVPWd: 1.4 cm ESV(Teich): 81.0 ml LA dimension: 4.3 cm EF(Teich): 17.4 % LVOT diam: 1.9 cm LVOT area: 2.8 cm2 Doppler Measurements & Calculations MV E max dong: MV P1/2t max dong: Ao V2 max: LV V1 max P.7 cm/sec 131.9 cm/sec 248.5 cm/sec 3.2 mmHg MV A max dong: MV P1/2t: 60.6 msec Ao max PG: LV V1 mean P.6 cm/sec MVA(P1/2t): 3.6 cm2 24.7 mmHg 1.5 mmHg MV E/A: 4.3 MV dec slope: Ao V2 mean: LV V1 max: 145.4 cm/sec 89.3 cm/sec 637.7 cm/sec2 Ao mean PG: LV V1 mean: MV dec time: 0.21 sec 10.9 mmHg 56.2 cm/sec Ao V2 VTI: 44.2 cmLV V1 VTI: 17.6 cm NATASHA(I,D): 1.1 cm2 NATASHA(V,D): 1.0 cm2 SV(LVOT): 49.2 ml PA V2 max: TR max dong: MV P1/2t-pr_phl: 90.3 cm/sec 193.7 cm/sec 60.6 msec PA max P.3 mmHg TR max P.0 mmHg Left Ventricle The left ventricle is mildly dilated. There is mild to moderate concentric left ventricular hypertrophy. LV EF is 35%. Left ventricular systolic function is moderate to severely reduced. LV diastolic function could not be adequately assessed due to atrial fibrilation. There is moderate to severe global hypokinesis of the left ventricle. No ASD,VSD or PFO seen. There is no thrombus. Right Ventricle The right ventricle is grossly normal size. Atria The right atrium is normal. The left atrium is mildly dilated. Mitral Valve There is mild to moderate mitral annular calcification. There is no evidence of mitral valve prolapse. There is no vegetation seen on the mitral valve. There is no mitral valve stenosis. There is a mild amount of mitral regurgitation. Aortic Valve There is no aortic valvular vegetation. There is mild to moderate aortic stenosis. There is a peak gradient of 25 mm of Hg , and mean gradient of 11mm of Hg. mm of Hg. No aortic regurgitation is present. Tricuspid Valve There is no tricuspid stenosis. There is a mild to moderate amount of tricuspid regurgitation. Upper normal to mild Pulmonaary hypertension.RVSP is 30 to 35 mm of Hg , with RA mean of 15 to 20. Pulmonic Valve There is no pulmonic valvular stenosis. There is no pulmonic valvular regurgitation. Great Vessels The aortic root is not well visualized but is probably normal size. The inferior vena cava appeared dilated and decreased < 50% with respiration (RAP 15-20 mmHg). Effusions There is no pericardial effusion. : OLYA PUGH Lakshmi
--- NOTE | 2020-06-21 15:54 | PDOC PROGRESS REPORT ---
Subjective Progress Note for:: 06/21/20 Subjective:: Patient is quite more arousable today than yesterday. Reason For Visit: PNEUMONIA, ATRIAL FIBRILLATION WITH RAPID Physical Exam Vital Signs: Temp Pulse Resp BP Pulse Ox 97.5 F 114 H 18 102/85 96 06/21/20 10:00 06/21/20 13:00 06/21/20 12:00 06/21/20 13:00 06/21/20 12:00 Intake & Output 06/20/20 06/21/20 06/22/20 06:59 06:59 06:59 Intake Total 405 445 498 Output Total 2870 2057 Balance -9035 -2529 498 Weight 85.8 kg 65.2 kg Exam: Chest tube has been draining at least 600 cc in the past 24hours. Results Laboratory Results: 06/21/20 05:28 06/21/20 05:28 06/19/20 06/21/20 06/21/20 14:25 05:28 05:28 WBC 3.8 L RBC 3.33 L Hgb 9.3 L Hct 27.9 L MCV 84 MCH 28.0 MCHC 33.5 RDW 16.3 H Plt Count 159 Seg Neutrophils % Not Reportable Sodium 145.9 H Potassium 4.4 Chloride 109 H Carbon Dioxide 29 Anion Gap 8 BUN 74 H Creatinine 0.96 Est GFR ( Amer) > 60 Glucose 156 H Calcium 8.6 Fluid Total Protein 2.5 Fluid LDH 279 Fluid Amylase 69 06/19/20 14:25 Chest Tube Fluid Gram Stain - Final 06/16/20 10:24 Blood Blood Culture - Final NO GROWTH IN 5 DAYS 06/16/20 09:10 Blood Blood Culture - Final NO GROWTH IN 5 DAYS 06/16/20 06/16/20 06/16/20 09:10 09:10 14:10 Creatine Kinase 63 Troponin I 0.096 0.083 NT-Pro-B Natriuret Pep 06/16/20 06/17/20 06/17/20 18:27 02:34 06:28 Creatine Kinase Troponin I 0.064 0.067 NT-Pro-B Natriuret Pep 4080 H Impressions: Chest CT 06/18/20 09:00 IMPRESSION: 1. Multifocal airspace disease throughout the right hemithorax compatible with pneumonia. [id number] associated subpulmonic effusion. 2. Cardiomegaly and coronary atherosclerosis. Head CT 06/19/20 00:00 IMPRESSION: No acute intracranial hemorrhage, mass, or evidence of acute territorial infarct. Mild chronic small vessel ischemic change. Intracranial atherosclerosis. EVIDENCE OF ACUTE STROKE: NO. Thoracentesis Ultrasound 06/19/20 00:00 IMPRESSION: SUCCESSFUL RIGHT THORACENTESIS AND CHEST TUBE PLACEMENT USING ULTRASOUND GUIDANCE. Chest X-Ray 06/20/20 08:00 IMPRESSION: The degree of opacification in the inferior aspect of the right hemithorax has decreased after placement of a pleural drainage catheter. Assessment & Plan - Diagnosis (1) Recurrent right pleural effusion Is this a current diagnosis for this admission?: Yes (2) Atrial fibrillation with rapid ventricular response Is this a current diagnosis for this admission?: Yes (3) COPD (chronic obstructive pulmonary disease) Qualifiers: COPD type: COPD with acute lower respiratory infection Qualified Code(s): J 44.0 - Chronic obstructive pulmonary disease with (acute) lower respiratory infection Is this a current diagnosis for this admission?: Yes (4) Hypotension Qualifiers: Hypotension type: unspecified hypotension type Qualified Code(s): I95.9 - Hypotension, unspecified (6) Pneumonia involving right lung Qualifiers: Pneumonia type: due to unspecified organism Lung location: unspecified part of lung Qualified Code(s): J18.9 - Pneumonia, unspecified organism Is this a current diagnosis for this admission?: Yes - Time Critical Time spent with patient: 15-24 minutes Anticipated Discharge Disposition: Long-Term Facility Anticipated Discharge Timeframe: 1 week - Plan Summary Plan Summary: 75-year-old male with recurrent right pleural effusion and had multiple thoracentesis in the past. Chest tube was placed this admission and is still draining quite a bit. Continue with medical management and once a chest tube drains about 150 cc or less per day then we will pull the tube out.
[2020-06-21] MEDS: METOPROLOL TARTRATE PF/INJ 5 MG/5 ML SDV IV PRN (16:03)
--- NOTE | 2020-06-21 17:09 | PDOC PROGRESS REPORT ---
Subjective Subjective:: Patient admitted for acute respiratory failure, pneumonia, chronic A. fib with acute RVR. Transferred out of ICU overnight 06/17. Patient was previously on a diltiazem and Precedex drip which were discontinued prior to transfer. Patient became acutely agitated frequently and heart rate ronni to the 140s to 120s sustained. Haldol helped with agitation momentarily but did not have a sustained effect. Ativan made agitation worse. Respiratory failure worsened as well and patient was started on BiPAP. He began pulling his BiPAP off and desaturating and was put in restraints. Heart rate briefly improved with IV me toprolol, unfortunately patient unable to take oral rate control meds while using BiPAP. Cardiology consulted. Critical care consulted to reevaluate the patient. CT scan of chest done which showed some pleural effusion possibly loculated pneumonia on the right. Radiology consulted for chest tube and fluid analysis labs were ordered along with cultures. General surgery consulted and the case was discussed with them in a stated they would like IR to perform chest tube and they would manage the chest tube thereafter. Patient cannot articulate any complaints due to agitation and using BiPAP. Troponin was positive x2 but flat, blood cultures negative, BNP up to 4000, COVID negative, sodium a bit lower at 131. 06/19/2020 Patient is waxing and waning with his clinical stability. One moment he is breathing well and somewhat alert, the next moment he is requiring BiPAP and appears very unstable as though he may need emergent intubation. This was discussed with Dr. Crocker in ICU yesterday and he would like the patient to remain on the floor for now. Also discussed case with Dr. Gerard in cardiology who agrees patient looks extremely ill at times. BP has been running low and I have discontinued the unnecessary BP meds he was sent to the ICU with. Hemoglobin is a bit lower but there are no signs of acute bleeding. Thoracentesis/chest tube has been ordered today and 100 cc of yellow fluid were removed and sent for analysis and culture. Suspect this will significantly improve the patient's respiratory status. Antibiotics have been broadened to meropenem. Blood cultures remain negative. He is still significantly tachycardic and at times showing V. tach per Dr. Gerard who is started the patient on amiodarone drip assuming BP will allow it. Patient cannot articulate any complaints today. 06/20/2020 Patient seems to have stabilized somewhat today after having his chest tube placed yesterday. Since yesterday, he has had approximately 1600 cc of mostly clear yellow fluid output. I discussed case with general surgeon Dr. Velazquez today and he is agreed to help us manage the chest tube as previous surgeon had signed off without evaluating it. Patient may need a larger chest tube if this currently small chest tube does not provide adequate drainage. I discussed the case with cardiology who will keep the patient on amiodarone drip in the short- term. Patient is a bit tired today and cannot articulate any specific complaints. 06/21/2020 Output from right-sided chest tube has slowed from yesterday but still has decent output. General surgery is following to help us decide if the patient will need a larger chest tube or if the current one can be pulled in the near future. Clinically, the patient is significantly improved and is actually speaking a bit today requesting putting. WBC is going down and his pleural fluid Gram stain and culture are negative so far. Speech therapy is evaluating the patient and will have a modified barium swallow tomorrow. Other than severe generalized fatigue the patient has no new complaints today. Reason For Visit: PNEUMONIA, ATRIAL FIBRILLATION WITH RAPID Physical Exam Vital Signs: Temp Pulse Resp BP Pulse Ox 97.5 F 127 H 18 109/69 96 06/21/20 10:00 06/21/20 16:00 06/21/20 12:00 06/21/20 16:00 06/21/20 12:00 Intake & Output 06/20/20 06/21/20 06/22/20 06:59 06:59 06:59 Intake Total 405 445 498 Output Total 5580 6268 277 Balance -2465 -1612 221 Weight 85.8 kg 65.2 kg Exam: General appearance: PRESENT: no acute distress, well-developed, well-nourished, chronically ill-appearing, more talkative Head exam: PRESENT: atraumatic, normocephalic Eye exam: PRESENT: conjunctiva pink Mouth exam: PRESENT: moist Respiratory exam: PRESENT: Moderate mostly right-sided crackles, rales, rhonchi ABSENT: wheezes Cardiovascular exam: PRESENT: irregular rhythm, tachycardia. ABSENT: diastolic murmur, systolic murmur GI/Abdominal exam: PRESENT: normal bowel sounds, soft. ABSENT: distended, guarding, mass, organolmegaly, rebound, tenderness Neurological exam: PRESENT: alert, awake. ABSENT: oriented to person, oriented to place, oriented to time, oriented to situation Psychiatric exam: PRESENT: Calm Skin exam: PRESENT: dry, intact, warm, chest tube in right thorax draining relatively clear yellow fluid Results Laboratory Results: 06/21/20 05:28 06/21/20 05:28 06/19/20 06/21/20 06/21/20 14:25 05:28 05:28 WBC 3.8 L RBC 3.33 L Hgb 9.3 L Hct 27.9 L MCV 84 MCH 28.0 MCHC 33.5 RDW 16.3 H Plt Count 159 Seg Neutrophils % Not Reportable Sodium 145.9 H Potassium 4.4 Chloride 109 H Carbon Dioxide 29 Anion Gap 8 BUN 74 H Creatinine 0.96 Est GFR ( Amer) > 60 Glucose 156 H Calcium 8.6 Fluid Total Protein 2.5 Fluid LDH 279 Fluid Amylase 69 06/19/20 14:25 Chest Tube Fluid Gram Stain - Final 06/16/20 10:24 Blood Blood Culture - Final NO GROWTH IN 5 DAYS 06/16/20 09:10 Blood Blood Culture - Final NO GROWTH IN 5 DAYS 06/16/20 06/16/20 06/16/20 09:10 09:10 14:10 Creatine Kinase 63 Troponin I 0.096 0.083 NT-Pro-B Natriuret Pep 06/16/20 06/17/20 06/17/20 18:27 02:34 06:28 Creatine Kinase Troponin I 0.064 0.067 NT-Pro-B Natriuret Pep 4080 H Impressions: Chest CT 06/18/20 09:00 IMPRESSION: 1. Multifocal airspace disease throughout the right hemithorax compatible with pneumonia. [id number] associated subpulmonic effusion. 2. Cardiomegaly and coronary atherosclerosis. Head CT 06/19/20 00:00 IMPRESSION: No acute intracranial hemorrhage, mass, or evidence of acute territorial infarct. Mild chronic small vessel ischemic change. Intracranial atherosclerosis. EVIDENCE OF ACUTE STROKE: NO. Thoracentesis Ultrasound 06/19/20 00:00 IMPRESSION: SUCCESSFUL RIGHT THORACENTESIS AND CHEST TUBE PLACEMENT USING ULTRASOUND GUIDANCE. Chest X-Ray 06/20/20 08:00 IMPRESSION: The degree of opacification in the inferior aspect of the right hemithorax has decreased after placement of a pleural drainage catheter. Assessment and Plan - Diagnosis (1) Pneumonia involving right lung Qualifiers: Pneumonia type: due to unspecified organism Lung location: unspecified part of lung Qualified Code(s): J18.9 - Pneumonia, unspecified organism Is this a current diagnosis for this admission?: Yes Plan: CT chest showed extensive pneumonia involving right lung with parapneumonic effusion IR consulted for chest tube placement, done on 06/19 Pleural fluid sent for chemistry analysis and bacterial cultures and fungal cultures, follow-up results General surgery consulted for chest tube management, discussed with them and they have agreed to follow along Broaden antibiotics to meropenem Respiratory culture pending Blood cultures negative 06/20/2020 Continued on meropenem General surgery consulted again for tube management as the previous physician and signed off without evaluating the tube, Dr. Velazquez has agreed to follow with us today. 1600 cc of yellow fluid out since placement 06/21/2020 Broaden antibiotics continued Pleural fluid Gram stain is negative, culture pending Fluid output from chest tube has slowed although breathing has improved along with this, possible we have drained the majority of the fluid out now (2) Atrial fibrillation with rapid ventricular response Is this a current diagnosis for this admission?: Yes Plan: Gradually restart p.o. rate control meds as able IV as needed metoprolol for heart rate greater than 110 bpm Cardiology consult: Case discussed with them multiple times, amiodarone drip started by them Echocardiogram showed EF 35% with moderate to severe global hypokinesis of the left ventricle with reduced systolic function Occasional V. tach noted on telemetry per cardiology, started on amiodarone drip as BP allows Cardiology recommended gentle IV fluids stating patient looks severely dehydrated, started LR at 75 cc/h (3) COPD (chronic obstructive pulmonary disease) Qualifiers: COPD type: COPD with acute lower respiratory infection Qualified Code(s): J44.0 - Chronic obstructive pulmonary disease with (acute) lower respiratory infection Is this a current diagnosis for this admission?: Yes (4) Acute metabolic encephalopathy Is this a current diagnosis for this admission?: Yes - Time Time Spent with patient: 25-34 minutes Medications reviewed and adjusted accordingly: Yes Anticipated Discharge Disposition: Senior Living Facility Anticipated Discharge Timeframe: within 72 hours - Inpatient Certification Based on my medical assessment, after consideration of the patient's comorbidities, presenting symptoms, or acuity I expect that the services needed warrant INPATIENT care.: Yes I certify that my determination is in accordance with my understanding of Medicare's requirements for reasonable and necessary INPATIENT services [42 CFR 412.3e].: Yes Medical Necessity: Significant Comorbidiites Make Outpatient Treatment Too Risky, Need Close Monitoring Due to Risk of Patient Decompensation, Need For IV Fluids, Need for IV Antibiotics, Risk of Complication if Not Cared For in Hospital, Risk of Diagnosis Which Will Require Inpatient Eval/Care/Monitoring
[2020-06-21] MEDS: ENOXAPARIN SODIUM INJ 80 MG/0.8 ML DISP.SYRIN SUBCUT SCH (21:41)
[2020-06-21] MEDS ORDERED: ENOXAPARIN SODIUM INJ 40 MG/0.4 ML DISP.SYRIN SUBCUT SCH (22:00)
[2020-06-22] MEDS: MORPHINE SULFATE 10 MG/ML INJ IV PRN ×4 (00:15→18:52)
[2020-06-22] MEDS: RINGERS SOLUTION,LACTATED 1,000 ML IV PRN ×2 (02:05→15:55)
[2020-06-22] MEDS: IPRATROPIUM/ALBUTEROL 0.5-2.5 MG/3 ML AMPUL NEB SCH ×5 (03:48→19:57)
[2020-06-22] MEDS: DULOXETINE HCL 30 MG CAPSULE.DR PO SCH ×3 (05:14→22:29)
[2020-06-22] MEDS: PANTOPRAZOLE SODIUM 40 MG TABLET.DR PO SCH (05:15)
[2020-06-22] MEDS: MEROPENEM 1 GM in NORMAL SALINE 50 ML IV SCH ×3 (05:18→22:32)
[2020-06-22] MEDS: HALOPERIDOL LACTATE INJ 5 MG/1 ML VIAL IV PRN ×2 (05:18→22:29)
[2020-06-22 07:36] LABS: HEMATOCRIT 26.9 % (37.9-51.0); MEAN CORPUSCULAR HEMOGLOBIN 28.4 pg (27.0-33.4); MEAN CORPUSCULAR HGB CONC 33.5 g/dL (32.0-36.0); MEAN CORPUSCULAR VOLUME 85 fl (80-97); PLATELET COUNT 128 10^3/uL (150-450); RED BLOOD COUNT 3.16 10^6/uL (4.35-5.55); RED CELL DISTRIBUTION WIDTH 16.3 % (11.5-14.0); WHITE BLOOD COUNT 4.1 10^3/uL (4.0-10.5)
[2020-06-22 07:56] LABS: BLOOD UREA NITROGEN 71 mg/dL (7-20); CALCIUM 8.7 mg/dL (8.4-10.2); CHLORIDE 109 mmol/L (98-107); GLUCOSE 158 mg/dL (75-110)
[2020-06-22 08:07] LABS: CARBON DIOXIDE 28 mmol/L (22-30); POTASSIUM 4.7 mmol/L (3.6-5.0)
[2020-06-22 08:11] LABS: ANION GAP 8 (5-19)
[2020-06-22 08:28] LABS: ABSOLUTE LYMPHOCYTES# (MANUAL) 0.1 10^3/uL (0.5-4.7); BAND NEUTROPHILS % (MANUAL) 2 % (3-5); BASOPHILS % (MANUAL) 0 % (0-2); EOSINOPHILS % (MANUAL) 0 % (0-6); LYMPHOCYTES % (MANUAL) 3 % (13-45); MONOCYTES % (MANUAL) 1 % (3-13); SEGMENTED NEUTROPHILS % (MAN) 94 % (42-78); TOTAL CELLS COUNTED 100
[2020-06-22 08:29] LABS: ANISOCYTOSIS 1+; OVALOCYTES SLIGHT; PLATELET COMMENT DECREASED; POIKILOCYTOSIS SLIGHT; TOXIC GRANULATION SLIGHT
[2020-06-22] MEDS: ENOXAPARIN SODIUM INJ 80 MG/0.8 ML DISP.SYRIN SUBCUT SCH ×2 (10:14→22:33)
[2020-06-22] MEDS: GUAIFENESIN 600 MG TABLET.SA PO SCH ×2 (10:14→22:30)
[2020-06-22] MEDS: FUROSEMIDE 20 MG TABLET PO SCH (10:15)
[2020-06-22] MEDS: METHYLPREDNISOLONE INJ 40 MG/1 ML SDV IV SCH ×2 (10:16→22:30)
[2020-06-22] MEDS: METOPROLOL SUCCINATE 50 MG TAB.SR.24H PO SCH ×2 (10:16→22:30)
--- NOTE | 2020-06-22 10:35 | ST Inp Modified Barium Swallow ---
Medical Diagnosis - Medical Diagnoses Medical Diagnosis Description & ICD-10 Code(s): Acute respiratory failure Inpatient MBS - General Date: 06/22/20 Date of Onset: 06/16/20 - History History Obtained From: Other - EMR -: Medical - Patient admitted for acute respiratory failure, pneumonia, chronic A. fib with acute RVR. Transferred out of ICU overnight 06/17. Medications: Medications Reviewed Allergies: Refer to medical record - Subjective Current Nutritional Means: NPO Current PO Diet: N/A (NPO) Current Symptoms: Pneumonia, other - ARF Pain: no signs/symptoms of pain - Objective Assessment: Upright - Food Trials Food Trials Used: Thin liquids, Honey-thickened liquids, Cushing thick liquids, Pureed The Patient: fed by ST, via cup, via spoon - Pharyngeal Stage Pahryngeal Stage Comments: During tsp of puree the pt had difficulty clearing the bolus from his oral cavity requiring several swallow attempts and delayed swallow initiation times, the residue was pushed into the vallecular space and remained despite several attempts to clear. The pt was cued to clear his throat and swallow hard. This was moderately successful in clearing his pharyngeal spaces. No airway compromise was seen, although moderate residue remained in the vallecula and lateral channels. Given honey via tsp the pt had no airway compromise but had moderate residue in his oropharyngeal spaces, requiring x2-3 secondary swallows to mostly clear. The pt was observed to have flash penetration of controlled cup sips of nectar with mild/mod residue in the oropharyngeal spaces. With tsp of nectar the pt lacked airway compromise with mild/mod residue in the oropharyngeal spaces. Given thin liquid via tsp the pt had trace aspiration during the swallow with weak cough response. Across textures the pt had increased residue with increased viscosity of bolus. - Esophageal Stage Esophageal Stage Comments: The pt's UES appeared to open fully, no retrograde movement observed. - Impression/Summary Effective Compensatory Strategies: throat clear & reswallow - This should be completed throughout the meal. Patient Presents With: Oral-Pharyngeal dysph. Risk of Aspiration: Severe - This is d/t being NPO, disuse of swallowing, and respiratory status. Risk Due To: This is d/t being NPO, disuse of swallowing, and respiratory status. - Recommendations Solid Diet Recommendations: Pureed - Wet puree, lockjaw diet Strict Aspitarion Precautions: Yes Dysphagia Therapy with [employer]: Yes - Diet check at mealtimes, possible dysphagia exercises dependent on willingness and alertness level, possibility of reeval/repeat mbss once diet has been established and pt regularly swallowing again. Recommended Techniques: Fully Upright During Meal, Med Crushed in Applesauce, Dry Swallow After Bite, Small Bites and Sips Supervision: requires assistance - This may decrease or increase dependent on what nursing and STs obvserve at mealtimes Other Recommendations: Strict pre-meal oral care, assistance to ensure pacing and clearing throat/swallowing during mealtimes - Time Total Time: 20 Total Timed Minutes: 0
--- NOTE | 2020-06-22 11:03 | PDOC PROGRESS REPORT ---
Subjective Progress Note for:: 06/22/20 Subjective:: OUSMANE HOWELL is a 75 year old male who is consulted to our service for further evaluation of atrial fibrillation. The patient is on BiPAP and unable to answer questions therefore the following history is obtained from reviewing his inpatient chart. Unfortunately the patient cannot provide any details of his history however it includes CAD s/p CABG, atrial fibrillation s/p MAZE and LALY ligation, right pleural effusion s/p several thoracentesis at [facility] and COPD. He was admitted on JUN 07 for progressively worse dyspnea and sputum production and eventually diagnosed with a significant right sided pneumonia. In the ED he was noted to be in respiratory distress, BiPAP was started and he was admitted to the ICU as it was thought that he was at an elevated risk for intubation. In the ICU he had episodes of delirium and was c ombative. He eventually improved and his afib was well controlled. He was then transferred out of the ICU earlier today. Unfortunately, he became combative, developed more dyspnea, his BP decreased and has had episodes of rapid atrial fibrillation with rates between 110 and 120 bpm which worsens up to 140's when he is agitated and combative. 06/22/2020: The patient had an uneventful night. He was started on low-dose IV fluid yesterday without any complications. This morning he is much better, he is fully awake, he is able to speak and is in no acute distress. He actually remembers me from prior cardiovascular evaluations at [facility] back in 2012, but unfortunately I do not remember his case. He has no cardiovascular complaints this morning but complains of lower extremity pain. His urine output has decreased as well as his chest tube drainage however he continues to be significant. His telemetry shows atrial fibrillation with occasional episodes of RVR, there has been no recurrence of his ventricular tachycardia. His net fluid balance is -5.271 L including the chest tube output. Physical exam on 06/22/2020: GENERAL: Fully awake, sitting up, in no distress, eating ice chips. HEENT: Normocephalic, atraumatic. Oropharynx is dry. NECK: No JVD. No carotid bruits. LUNGS: Clear to auscultation bilaterally. CARDIOVASCULAR: Irregularly irregular rate and rhythm, no rubs, or gallops. PMI not displaced. EXTREMITIES: No edema, no cyanosis, no clubbing. +2 pulses femoral and pedal pulses bilaterally. SKIN: No lesions or rashes. MUSCULOSKELETAL: No chest tenderness to palpation. Reason For Visit: PNEUMONIA, ATRIAL FIBRILLATION WITH RAPID Physical Exam Vital Signs: Temp Pulse Resp BP Pulse Ox 97.7 F 91 18 102/76 99 06/21/20 23:07 06/22/20 03:48 06/22/20 03:48 06/22/20 02:00 06/22/20 03:48 Intake & Output 06/20/20 06/21/20 06/22/20 06:59 06:59 06:59 Intake Total 405 445 548 Output Total 2878 8632 632 Balance -4894 -8772 -73 Weight 85.8 kg 65.2 kg 66 kg Results Laboratory Results: 06/21/20 05:28 06/21/20 05:28 06/19/20 06/21/20 06/21/20 14:25 05:28 05:28 WBC 3.8 L RBC 3.33 L Hgb 9.3 L Hct 27.9 L MCV 84 MCH 28.0 MCHC 33.5 RDW 16.3 H Plt Count 159 Seg Neutrophils % Not Reportable Sodium 145.9 H Potassium 4.4 Chloride 109 H Carbon Dioxide 29 Anion Gap 8 BUN 74 H Creatinine 0.96 Est GFR ( Amer) > 60 Glucose 156 H Calcium 8.6 Fluid Total Protein 2.5 Fluid LDH 279 Fluid Amylase 69 06/19/20 14:25 Chest Tube Fluid Gram Stain - Final 06/16/20 10:24 Blood Blood Culture - Final NO GROWTH IN 5 DAYS 06/16/20 09:10 Blood Blood Culture - Final NO GROWTH IN 5 DAYS 06/16/20 06/16/20 06/16/20 09:10 09:10 14:10 Creatine Kinase 63 Troponin I 0.096 0.083 NT-Pro-B Natriuret Pep 06/16/20 06/17/20 06/17/20 18:27 02:34 06:28 Creatine Kinase Troponin I 0.064 0.067 NT-Pro-B Natriuret Pep 4080 H Impressions: Chest CT 06/18/20 09:00 IMPRESSION: 1. Multifocal airspace disease throughout the right hemithorax compatible with pneumonia. [id number] associated subpulmonic effusion. 2. Cardiomegaly and coronary atherosclerosis. Head CT 06/19/20 00:00 IMPRESSION: No acute intracranial hemorrhage, mass, or evidence of acute territorial infarct. Mild chronic small vessel ischemic change. Intracranial atherosclerosis. EVIDENCE OF ACUTE STROKE: NO. Thoracentesis Ultrasound 06/19/20 00:00 IMPRESSION: SUCCESSFUL RIGHT THORACENTESIS AND CHEST TUBE PLACEMENT USING ULTRASOUND GUIDANCE. Chest X-Ray 06/20/20 08:00 IMPRESSION: The degree of opacification in the inferior aspect of the right hemithorax has decreased after placement of a pleural drainage catheter. 06/21/20 05:28 06/21/20 05:28 MCV 84 fl (80-97) 06/21/20 05:28 MCH 28.0 pg (27.0-33.4) 06/21/20 05:28 MCHC 33.5 g/dL (32.0-36.0) 06/21/20 05:28 RDW 16.3 % (11.5-14.0) H 06/21/20 05:28 Seg Neutrophils % Not Reportable 06/21/20 05:28 Carbonic Acid 1.21 mmol/L (1.05-1.35) 06/18/20 09:03 HCO3/H2CO3 Ratio 18:1 06/18/20 09:03 ABG pH 7.36 (7.35-7.45) 06/18/20 09:03 ABG pCO2 40.2 mmHg (35-45) 06/18/20 09:03 ABG pO2 59.5 mmHg (80-100) L 06/18/20 09:03 ABG HCO3 21.9 mmol/L (20-24) 06/18/20 09:03 ABG O2 Saturation 89.8 % (94-98) L 06/18/20 09:03 ABG Base Excess -3.3 mmol/L 06/18/20 09:03 VBG pH 7.42 (7.30-7.42) 06/16/20 09:00 VBG pCO2 40.8 mmHg (35-63) 06/16/20 09:00 VBG HCO3 26.1 mmol/L (20-32) 06/16/20 09:00 VBG Base Excess 1.6 mmol/L 06/16/20 09:00 FiO2 6L 06/18/20 09:03 Chloride 109 mmol/L (98-107) H 06/21/20 05:28 Carbon Dioxide 29 mmol/L (22-30) 06/21/20 05:28 Anion Gap 8 (5-19) 06/21/20 05:28 Est GFR ( Amer) > 60 (>60) 06/21/20 05:28 Glucose 156 mg/dL (75-110) H 06/21/20 05:28 Lactic Acid 2.3 mmol/L (0.7-2.1) H 06/16/20 09:00 Calcium 8.6 mg/dL (8.4-10.2) 06/21/20 05:28 Magnesium 2.4 mg/dL (1.6-2.3) H 06/17/20 06:28 Ferritin 494.00 ng/mL (17.9-464.0) H 06/16/20 09:10 Total Bilirubin 3.8 mg/dL (0.2-1.3) H 06/16/20 09:00 AST 107 U/L (17-59) H 06/16/20 09:00 Alkaline Phosphatase 144 U/L (38-126) H 06/16/20 09:00 Total Protein 4.6 g/dL (6.3-8.2) L 06/18/20 16:27 Albumin 2.6 g/dL (3.5-5.0) L 06/16/20 09:00 Triglycerides 112 mg/dL (<150) 06/17/20 06:28 Cholesterol 51.72 mg/dL (0-200) 06/17/20 06:28 LDL Cholesterol Direct < 30 mg/dL (<100) 06/17/20 06:28 VLDL Cholesterol 22.0 mg/dL (10-31) 06/17/20 06:28 HDL Cholesterol 9 mg/dL (>40) L 06/17/20 06:28 TSH 0.45 uIU/mL (0.47-4.68) L 06/17/20 06:28 Urine Color CANDELARIO 06/16/20 14:25 Urine Appearance CLOUDY 06/16/20 14:25 Urine pH 5.0 (5.0-9.0) 06/16/20 14:25 Ur Specific Guston 1.019 06/16/20 14:25 Urine Protein 100 mg/dL (NEGATIVE) H 06/16/20 14:25 Urine Glucose (UA) NEGATIVE mg/dL (NEGATIVE) 06/16/20 14:25 Urine Ketones NEGATIVE mg/dL (NEGATIVE) 06/16/20 14:25 Urine Blood SMALL (NEGATIVE) H 06/16/20 14:25 Urine Nitrite NEGATIVE (NEGATIVE) 06/16/20 14:25 Ur Leukocyte Esterase NEGATIVE (NEGATIVE) 06/16/20 14:25 Urine WBC (Auto) 3 /HPF 06/16/20 14:25 Urine RBC (Auto) 1 /HPF 06/16/20 14:25 Fluid Type PLEURAL 06/19/20 14:25 Fluid Source LUNG 06/19/20 14:25 Fluid Color YELLOW 06/19/20 14:25 Fluid Appearance SLIGHTLY HAZY 06/19/20 14:25 Fluid Viscosity LIQUID 06/19/20 14:25 Fluid WBC 380 /uL 06/19/20 14:25 Fluid RBC 1235 /uL 06/19/20 14:25 Fluid Total Protein 2.5 g/dL (.) 06/19/20 14:25 Fluid LDH 279 IU/L (.) 06/19/20 14:25 Fluid Amylase 69 U/L (.) 06/19/20 14:25 06/19/20 14:25 Chest Tube Fluid Gram Stain - Final 06/16/20 10:24 Blood Blood Culture - Final NO GROWTH IN 5 DAYS 06/16/20 09:10 Blood Blood Culture - Final NO GROWTH IN 5 DAYS 06/16/20 06/16/20 06/16/20 09:10 09:10 14:10 Creatine Kinase 63 Troponin I 0.096 0.083 NT-Pro-B Natriuret Pep 06/16/20 06/17/20 06/17/20 18:27 02:34 06:28 Creatine Kinase Troponin I 0.064 0.067 NT-Pro-B Natriuret Pep 4080 H Current Medication List Generic Name Dose Route Start Last Admin Trade Name Freq PRN Reason Stop Dose Admin Albuterol/Ipratropium 3 ml 06/16/20 14:30 06/22/20 03:48 Duoneb 3 Ml Ampul NEB 07/16/20 14:29 3 ml RTQ4 HUNTER Administration Albuterol/Ipratropium 3 ml 06/18/20 15:38 Duoneb 3 Ml Ampul NEB 07/18/20 15:37 RTQ2HP PRN SHORTNESS OF BREATH Dextrose 12.5 gm 06/18/20 15:42 Dextrose Inj 50% Syringe (25 Gm/50 Ml) IV 07/18/20 15:41 PRN PRN FOR BG 50-69 IN ALERT PATIENT Protocol Dextrose 25 gm 06/18/20 15:42 Dextrose Inj 50% Syringe (25 Gm/50 Ml) IV 07/18/20 15:41 PRN PRN See Label Comments Protocol Diltiazem HCl 240 mg 06/16/20 16:00 06/18/20 12:09 Cardizem Cd 240 Mg Capsule.Cr PO 07/16/20 15:59 Not Given DAILY HUNTER Duloxetine HCl 30 mg 06/16/20 22:00 06/22/20 05:14 Cymbalta 30 Mg Capsule.Dr PO 07/16/20 21:59 Not Given Q8 HUNTER Enoxaparin Sodium 65 mg 06/21/20 22:00 06/21/20 21:41 Lovenox Inj 80 Mg/0.8 Ml Disp.Syrin SUBCUT 07/21/20 21:59 65 mg Q12 HUNTER Administration Furosemide 20 mg 06/17/20 10:00 06/21/20 09:27 Lasix 20 Mg Tablet PO 07/17/20 09:59 Not Given DAILY HUNTER Glucagon 1 mg 06/18/20 15:42 Glucagen Inj 1 Mg Vial SUBCUT 07/18/20 15:41 PRN PRN Evaluate for BG < 70 Protocol Glucose 15 gm 06/18/20 15:42 Glutose 40% Gel 15 Gm Tube PO 07/18/20 15:41 PRN PRN For BG 50-69 in Alert Patient Protocol Glucose 30 gm 06/18/20 15:42 Glutose 40% Gel 15 Gm Tube PO 07/18/20 15:41 PRN PRN FOR BG < 50 IN ALERT PATIENT Protocol Guaifenesin 600 mg 06/16/20 22:00 06/21/20 21:12 Mucinex Sr 600 Mg Tablet.Sa PO 07/16/20 21:59 Not Given Q12 HUNTER Haloperidol Lactate 2 mg 06/18/20 08:55 06/22/20 05:18 Haldol 5 Mg/Ml Inj 1 Ml Vial IV 07/18/20 08:54 2 mg Q6HP PRN Administration RESTLESSNESS/AGITATION Meropenem 1 gm/ Sodium 50 mls @ 100 mls/hr 06/18/20 15:30 06/22/20 05:18 Chloride IV 06/25/20 15:29 100 mls/hr Q8 HUNTER 100 mls/hr Administration Amiodarone HCl 900 mg/ 500 mls @ 0 mls/hr 06/19/20 10:00 06/21/20 13:14 Dextrose IV 06/22/20 09:59 16.7 mls/hr CONTINUOUS PRN 16.7 mls/hr THIS MED IS NOT "PRN" Administration Protocol Per Protocol Lactated Ringer's 1,000 mls @ 75 mls/hr 06/21/20 10:12 06/22/20 02:05 Lactated Ringers 1000 Ml Iv Soln IV 07/21/20 10:11 75 mls/hr CONTINUOUS PRN Administration THIS MED IS NOT "PRN" Methylprednisolone Sodium Succinate 40 mg 06/16/20 22:00 06/21/20 21:40 Solu-Medrol Inj/Pf 40 Mg/1 Ml Sdv IV 07/16/20 21:59 40 mg Q12 HUNTER Administration Metoprolol Succinate 50 mg 06/18/20 10:00 06/21/20 21:13 Toprol Xl 50 Mg Tab.Sr PO 07/18/20 09:59 Not Given Q12 HUNTER Metoprolol Tartrate 5 mg 06/18/20 15:46 06/21/20 16:03 Lopressor Inj/Pf 5 Mg/5 Ml Sdv IV 07/18/20 15:41 5 mg Q4HP PRN Administration HR >110 Morphine Sulfate 4 mg 06/19/20 22:00 06/22/20 00:15 Morphine 10 Mg/Ml Inj IV 06/26/20 21:59 4 mg Q2HP PRN Administration FOR PAIN Pantoprazole Sodium 40 mg 06/17/20 06:00 06/22/20 05:[address] Tablet PO 07/17/20 05:59 Not Given Q6AM HUNTER Sodium Chloride 2.5 ml 06/16/20 14:00 06/22/20 05:23 Saline Flush 2.5 Ml Monoject Prefil Syrin IV 07/16/20 13:59 Not Given Q8 HUNTER Discontinued Medications Generic Name Dose Route Start Last Admin Trade Name Freq PRN Reason Stop Dose Admin Acetaminophen 975 mg 06/16/20 09:36 06/16/20 09:56 Tylenol 325 Mg Tablet PO 06/16/20 09:37 975 mg NOW ONE Administration Dextrose 12.5 gm 06/16/20 13:10 Dextrose Inj 50% Syringe (25 Gm/50 Ml) IV 07/16/20 13:09 PRN PRN FOR BG 50-69 IN ALERT PATIENT Protocol Dextrose 25 gm 06/16/20 13:10 Dextrose Inj 50% Syringe (25 Gm/50 Ml) IV 07/16/20 13:09 PRN PRN See Label Comments Protocol Doxazosin Mesylate 2 mg 06/16/20 22:00 06/18/20 21:34 Cardura 2 Mg Tablet PO 07/16/20 21:59 Not Given QHS HUNTER Enoxaparin Sodium 40 mg 06/16/20 14:00 06/21/20 09:31 Lovenox Inj 40 Mg/0.4 Ml Disp.Syrin SUBCUT 07/16/20 13:59 40 mg DAILY HUNTER Administration Furosemide 40 mg 06/16/20 21:55 06/16/20 22:38 Lasix Inj/Pf 40 Mg/4 Ml Sdv IV 06/16/20 21:56 Not Given NOW ONE Furosemide Confirm 06/16/20 22:01 06/16/20 22:08 Lasix Inj/Pf 40 Mg/4 Ml Sdv Administered 06/16/20 22:02 40 mg Dose Administration 40 mg .ROUTE .STK-MED ONE Glucagon 1 mg 06/16/20 13:10 Glucagen Inj 1 Mg Vial SUBCUT 07/16/20 13:09 PRN PRN Evaluate for BG < 70 Protocol Glucose 15 gm 06/16/20 13:10 Glutose 40% Gel 15 Gm Tube PO 07/16/20 13:09 PRN PRN For BG 50-69 in Alert Patient Protocol Glucose 30 gm 06/16/20 13:10 Glutose 40% Gel 15 Gm Tube PO 07/16/20 13:09 PRN PRN FOR BG < 50 IN ALERT PATIENT Protocol Haloperidol Lactate 2 mg 06/18/20 06:45 06/18/20 06:46 Haldol 5 Mg/Ml Inj 1 Ml Vial IM 06/18/20 06:46 2 mg NOW ONE Administration Hydralazine HCl 50 mg 06/16/20 22:00 06/19/20 06:19 Apresoline 50 Mg Tablet PO 07/16/20 21:59 Not Given Q8 HUNTER Diltiazem HCl 125 mg in 125 mls @ 0 mls/hr 06/16/20 09:31 06/16/20 18:00 Cardizem Rtu Inj 125 Mg-D5w 125 Ml Premix IV 07/16/20 09:30 2.5 mls/hr CONTINUOUS PRN 2.5 mls/hr THIS MED IS NOT "PRN" Titration Protocol Titrate Levofloxacin/Dextrose 750 mg in 150 mls @ 100 mls/hr 06/16/20 09:39 06/16/20 11:27 Levaquin Rtu 750 Mg/D5w 150 Ml Premix IV 06/16/20 11:08 Infused NOW ONE Infusion Sodium Chloride 1,000 mls @ 0 mls/hr 06/16/20 09:50 06/16/20 10:58 Nacl 0.9% 1000 Ml Iv Soln IV 06/16/20 09:51 Infused BOLUS ONE Infusion Wide Open Sodium Chloride 1,000 mls @ 0 mls/hr 06/16/20 10:14 06/16/20 11:46 Nacl 0.9% 1000 Ml Iv Soln IV 06/16/20 10:15 Infused BOLUS ONE Infusion Wide Open Dexmedetomidine/Sodium Chloride Confirm 06/16/20 13:10 06/16/20 19:08 Precedex 400 Mcg/Ns 100 Ml Iv Premix Administered 06/16/20 13:11 Not Given Dose 400 mcg in 100 mls @ ud IV .STK-MED ONE Dexmedetomidine/Sodium Chloride 400 mcg in 100 mls @ 7.57 mls/hr 06/16/20 13:16 06/17/20 22:49 Precedex 400 Mcg/Ns 100 Ml Iv Premix IV 07/16/20 13:15 Infused CONTINUOUS PRN Titration THIS MED IS NOT "PRN" Protocol 0.4 MCG/KG/HR Levofloxacin/Dextrose 750 mg in 150 mls @ 100 mls/hr 06/17/20 10:00 06/18/20 12:09 Levaquin Rtu 750 Mg/D5w 150 Ml Premix IV 06/24/20 09:59 Infused DAILY HUNTER Infusion Amiodarone HCl 150 mg/ 100 mls @ 600 mls/hr 06/19/20 10:00 06/19/20 09:43 Dextrose IV 06/19/20 10:09 600 mls/hr NOW ONE Administration Lorazepam 0.5 mg 06/16/20 10:33 06/16/20 10:38 Ativan Inj 2 Mg/1 Ml Vial IV 06/16/20 10:34 0.5 mg NOW ONE Administration Lorazepam 0.5 mg 06/18/20 01:33 06/18/20 02:00 Ativan Inj 2 Mg/1 Ml Vial IV 06/25/20 01:32 0.5 mg Q3HP PRN Administration ANXIETY/AGITATION Meropenem 1 gm 06/18/20 14:00 Merrem 1 Gm Vial IV 06/25/20 13:59 Q8 [facility] Meropenem Confirm 06/20/20 23:13 06/20/20 23:57 Merrem 1 Gm Vial Administered 06/20/20 23:14 Not Given Dose 1 gm .ROUTE .STK-MED ONE Metoprolol Tartrate 5 mg 06/18/20 09:51 06/18/20 10:25 Lopressor Inj/Pf 5 Mg/5 Ml Sdv IV 07/18/20 09:50 5 mg Q6HP PRN Administration HR >110 Morphine Sulfate 1 mg 06/19/20 02:27 06/19/20 06:26 Morphine 10 Mg/Ml Inj IV 06/19/20 02:28 Not Given NOW ONE Scopolamine HBr 1 each 06/19/20 02:24 06/19/20 06:26 Transderm-Scop 1.5 Mg Patch TD 06/19/20 02:25 Not Given NOW ONE Sodium Chloride 2.5 ml 06/16/20 14:00 Saline Flush 2.5 Ml Monoject Prefil Syrin IV 07/16/20 13:59 Q8 [facility] Assessment & Plan - Diagnosis (1) Atrial fibrillation with rapid ventricular response Is this a current diagnosis for this admission?: Yes Plan: The patient is currently in paroxysmal atrial fibrillation with a well-c ontrolled heart rate although he continues to experience occasional episodes of rapid ventricular response. His EKG this morning demonstrated atrial fibrillation with adequate intervals. He is being evaluated by speech therapy with a modified barium swallow and hopefully he will be found appropriate to take p.o medications at which time I would start him on metoprolol 25 mg every 6 hours and would avoid diltiazem. Recommendations: -Continue with amiodarone drip for now. -Start Lovenox 1 mg/kg twice daily subcutaneously given his [id number] score of 3 for stroke prevention if cleared by surgery given his chest tube. -Strongly suggest nutrition consult to to specifically consider either par enteral or enteral nutrition. -Continue with gentle IV hydration. -May discontinue amiodarone drip when he is able to take p.o. medications. -Start metoprolol 25 mg p.o. every 6 hours once he is able to take p.o. medications. -Avoid calcium channel blockers as much as possible. (2) Coronary artery disease Qualifiers: Coronary Disease-Associated Artery/Lesion type: paimiut artery Is this a current diagnosis for this admission?: Yes Plan: Details of his coronary artery disease are unknown as the patient cannot provide any of those at this moment. He is clinically doing much better today. There h as been no recurrence of wide-complex tachycardia in the past 24 hours on his telemetry. His echocardiogram was read as having an ejection fraction at approximately 35% however I performed a bedside directed study when his heart rate was slower and demonstrated an ejection fraction of approximately 50%. Recommendations: -Continue with current medical management for now. -We will add beta-tutu, baby aspirin and high intensity statin therapy once he is tolerating p.o. -We will add OLAF inhibitor/ARB once the patient is tolerating p.o. and as dictated by his renal function and blood pressure. (3) Heart valve disease Is this a current diagnosis for this admission?: Yes Plan: No details available at this point. We are still awaiting his echocardiogram. Further recommendations pending those results. (4) Pneumonia involving right lung Qualifiers: Pneumonia type: due to unspecified organism Lung location: unspecified part of lung Qualified Code(s): J18.9 - Pneumonia, unspecified organism Is this a current diagnosis for this admission?: Yes Plan: His chest x-ray looks improved after placement of chest tube. It appears that the chest tube output is significantly decreased since yesterday. His further recommendation and management per hospitalist and surgery teams.
--- NOTE | 2020-06-22 14:29 | Progress Note ---
Provider Note Provider Note: I was informed by the nursing staff that the patient was able to tolerate toprol and lasix PO. At this point we will continue with PO toprol as prescribed for now and, if pulse becomes uncontrolled, will then switch him to metoprolol tartrate 25 mg po q6 hours and will titrate up as needed. Amiodarone drip will be discontinued as he continues to be in atrial fibrillation and is now able to tolearate BB by mouth. The patient continues to be clinically dehydrated therefore I will discontinue his lasix.
--- NOTE | 2020-06-22 15:31 | EKG REPORT ---
SEVERITY:- ABNORMAL ECG - ATRIAL FIBRILLATION PROBABLE INFERIOR INFARCT, OLD PROLONGED QT INTERVAL : Confirmed by: Paul Martins MD 22-Jun-2020 15:31:03
--- NOTE | 2020-06-22 16:24 | PDOC PROGRESS REPORT ---
Subjective Progress Note for:: 06/22/20 Subjective:: Some pains at the chest tube site Reason For Visit: PNEUMONIA, ATRIAL FIBRILLATION WITH RAPID Physical Exam Vital Signs: Temp Pulse Resp BP Pulse Ox 97.4 F 85 16 102/66 97 06/22/20 11:05 06/22/20 15:29 06/22/20 15:29 06/22/20 14:00 06/22/20 15:29 Intake & Output 06/21/20 06/22/20 06/23/20 06:59 06:59 06:59 Intake Total 178 769 3830 Output Total 2057 632 60 Balance -1612 -34 1437 Weight 65.2 kg 66 kg Exam: Chest tube draining still consider draining considerable amounts. Not ready for removal yet. Results Laboratory Results: 06/22/20 05:57 06/22/20 05:57 06/22/20 06/22/20 05:57 05:57 WBC 4.1 RBC 3.16 L Hgb 9.0 L Hct 26.9 L MCV 85 MCH 28.4 MCHC 33.5 RDW 16.3 H Plt Count 128 L Seg Neutrophils % Not Reportable Sodium 144.6 Potassium 4.7 Chloride 109 H Carbon Dioxide 28 Anion Gap 8 BUN 71 H Creatinine 0.90 Est GFR ( Amer) > 60 Glucose 158 H Calcium 8.7 06/19/20 14:25 Chest Tube Fluid Gram Stain - Final 06/16/20 06/16/20 06/16/20 09:10 09:10 14:10 Creatine Kinase 63 Troponin I 0.096 0.083 NT-Pro-B Natriuret Pep 06/16/20 06/17/20 06/17/20 18:27 02:34 06:28 Creatine Kinase Troponin I 0.064 0.067 NT-Pro-B Natriuret Pep 4080 H Impressions: Chest CT 06/18/20 09:00 IMPRESSION: 1. Multifocal airspace disease throughout the right hemithorax compatible with pneumonia. [id number] associated subpulmonic effusion. 2. Cardiomegaly and coronary atherosclerosis. Head CT 06/19/20 00:00 IMPRESSION: No acute intracranial hemorrhage, mass, or evidence of acute territorial infarct. Mild chronic small vessel ischemic change. Intracranial atherosclerosis. EVIDENCE OF ACUTE STROKE: NO. Thoracentesis Ultrasound 06/19/20 00:00 IMPRESSION: SUCCESSFUL RIGHT THORACENTESIS AND CHEST TUBE PLACEMENT USING ULTRASOUND GUIDANCE. Chest X-Ray 06/20/20 08:00 IMPRESSION: The degree of opacification in the inferior aspect of the right hemithorax has decreased after placement of a pleural drainage catheter. Assessment & Plan - Diagnosis (1) Recurrent right pleural effusion Is this a current diagnosis for this admission?: Yes (2) Atrial fibrillation with rapid ventricular response Is this a current diagnosis for this admission?: Yes (3) COPD (chronic obstructive pulmonary disease) Qualifiers: COPD type: COPD with acute lower respiratory infection Qualified Code(s): J44.0 - Chronic obstructive pulmonary disease with (acute) lower respiratory infection Is this a current diagnosis for this admission?: Yes (4) Hypotension Qualifiers: Hypotension type: unspecified hypotension type Qualified Code(s): I95.9 - Hypotension, unspecified Is this a current diagnosis for this admission?: Yes (5) Hypoxia Is this a current diagnosis for this admission?: Yes (6) Pneumonia involving right lung Qualifiers: Pneumonia type: due to unspecified organism Lung location: unspecified part of lung Qualified Code(s): J18.9 - Pneumonia, unspecified organism Is this a current diagnosis for this admission?: Yes - Time Critical Time spent with patient: 15-24 minutes Anticipated Discharge Disposition: Home with Home Health Anticipated Discharge Timeframe: 1 week - Inpatient Certification Medical Necessity: Need Close Monitoring Due to Risk of Patient Decompensation, Need For Continuous Telemetry Monitoring, Need for IV Antibiotics - Plan Summary Plan Summary: 75-year-old male with recurrent right pleural effusion. Patient noted to have infiltrate in the right lung would right pleural effusion and a chest tube was placed by radiology. Chest tube has been draining considerable amounts at least 600 cc per 24 hours. We will DC the chest tube when drainage is 150 cc or less in 24hours.
--- NOTE | 2020-06-22 17:28 | PDOC PROGRESS REPORT ---
Subjective Subjective:: Patient admitted for acute respiratory failure, pneumonia, chronic A. fib with acute RVR. Transferred out of ICU overnight 06/17. Patient was previously on a diltiazem and Precedex drip which were discontinued prior to transfer. Patient became acutely agitated frequently and heart rate ronni to the 140s to 120s sustained. Haldol helped with agitation momentarily but did not have a sustained effect. Ativan made agitation worse. Respiratory failure worsened as well and patient was started on BiPAP. He began pulling his BiPAP off and desaturating and was put in restraints. Heart rate briefly improved with IV me toprolol, unfortunately patient unable to take oral rate control meds while using BiPAP. Cardiology consulted. Critical care consulted to reevaluate the patient. CT scan of chest done which showed some pleural effusion possibly loculated pneumonia on the right. Radiology consulted for chest tube and fluid analysis labs were ordered along with cultures. General surgery consulted and the case was discussed with them in a stated they would like IR to perform chest tube and they would manage the chest tube thereafter. Patient cannot articulate any complaints due to agitation and using BiPAP. Troponin was positive x2 but flat, blood cultures negative, BNP up to 4000, COVID negative, sodium a bit lower at 131. 06/19/2020 Patient is waxing and waning with his clinical stability. One moment he is breathing well and somewhat alert, the next moment he is requiring BiPAP and appears very unstable as though he may need emergent intubation. This was discussed with Dr. Crocker in ICU yesterday and he would like the patient to remain on the floor for now. Also discussed case with Dr. Gerard in cardiology who agrees patient looks extremely ill at times. BP has been running low and I have discontinued the unnecessary BP meds he was sent to the ICU with. Hemoglobin is a bit lower but there are no signs of acute bleeding. Thoracentesis/chest tube has been ordered today and 100 cc of yellow fluid were removed and sent for analysis and culture. Suspect this will significantly improve the patient's respiratory status. Antibiotics have been broadened to meropenem. Blood cultures remain negative. He is still significantly tachycardic and at times showing V. tach per Dr. Gerard who is started the patient on amiodarone drip assuming BP will allow it. Patient cannot articulate any complaints today. 06/20/2020 Patient seems to have stabilized somewhat today after having his chest tube placed yesterday. Since yesterday, he has had approximately 1600 cc of mostly clear yellow fluid output. I discussed case with general surgeon Dr. Velazquez today and he is agreed to help us manage the chest tube as previous surgeon had signed off without evaluating it. Patient may need a larger chest tube if this currently small chest tube does not provide adequate drainage. I discussed the case with cardiology who will keep the patient on amiodarone drip in the short- term. Patient is a bit tired today and cannot articulate any specific complaints. 06/21/2020 Output from right-sided chest tube has slowed from yesterday but still has decent output. General surgery is following to help us decide if the patient will need a larger chest tube or if the current one can be pulled in the near future. Clinically, the patient is significantly improved and is actually speaking a bit today requesting putting. WBC is going down and his pleural fluid Gram stain and culture are negative so far. Speech therapy is evaluating the patient and will have a modified barium swallow tomorrow. Other than severe generalized fatigue the patient has no new complaints today. 06/22/2020 Patient continues to be gradually more alert and talkative. Speech therapy is working with him and we are trying to give him thin pudding to hopefully help retrain and strengthen his swallowing muscles. We will try to avoid an NG tube or PEG tube if we are able to do so. He is now only requiring 2 L nasal cannula which is a large improvement from when he came into the ICU. Respiratory culture and pleural effusion cultures are both negative. Labs are reviewed and relatively stable. Patient has no new complaints today. Chest tube seems to be draining less and less yellow fluid. General surgery planning to remove the chest tube plan and is putting out less than 150 cc in 24 hours. Lasix has been stopped, IV fluids given for clinical dehydration. Reason For Visit: PNEUMONIA, ATRIAL FIBRILLATION WITH RAPID Physical Exam Vital Signs: Temp Pulse Resp BP Pulse Ox 97.2 F 79 16 112/82 100 06/22/20 17:13 06/22/20 17:13 06/22/20 17:13 06/22/20 17:13 06/22/20 17:13 Intake & Output 06/21/20 06/22/20 06/23/20 06:59 06:59 06:59 Intake Total 823 443 3293 Output Total 2057 632 60 Balance -1612 -34 1437 Weight 65.2 kg 66 kg Exam: General appearance: PRESENT: no acute distress, well-developed, well-nourished, chronically ill-appearing, states he likes to putting Head exam: PRESENT: atraumatic, normocephalic Eye exam: PRESENT: conjunctiva pink Mouth exam: PRESENT: moist Respiratory exam: PRESENT: Still has moderate mostly right-sided crackles, rales, rhonchi ABSENT: wheezes Cardiovascular exam: PRESENT: irregular rhythm, tachycardia. ABSENT: diastolic murmur, systolic murmur GI/Abdominal exam: PRESENT: normal bowel sounds, soft. ABSENT: distended, gu arding, mass, organolmegaly, rebound, tenderness Neurological exam: PRESENT: alert, awake. ABSENT: oriented to person, oriented to place, oriented to time, oriented to situation Psychiatric exam: PRESENT: Calm Skin exam: PRESENT: dry, intact, warm, chest tube in right thorax draining relatively clear yellow fluid Results Laboratory Results: 06/22/20 05:57 06/22/20 05:57 06/22/20 06/22/20 05:57 05:57 WBC 4.1 RBC 3.16 L Hgb 9.0 L Hct 26.9 L MCV 85 MCH 28.4 MCHC 33.5 RDW 16.3 H Plt Count 128 L Seg Neutrophils % Not Reportable Sodium 144.6 Potassium 4.7 Chloride 109 H Carbon Dioxide 28 Anion Gap 8 BUN 71 H Creatinine 0.90 Est GFR ( Amer) > 60 Glucose 158 H Calcium 8.7 06/19/20 14:25 Chest Tube Fluid Gram Stain - Final 06/16/20 06/16/20 06/16/20 09:10 09:10 14:10 Creatine Kinase 63 Troponin I 0.096 0.083 NT-Pro-B Natriuret Pep 06/16/20 06/17/20 06/17/20 18:27 02:34 06:28 Creatine Kinase Troponin I 0.064 0.067 NT-Pro-B Natriuret Pep 4080 H Impressions: Chest CT 06/18/20 09:00 IMPRESSION: 1. Multifocal airspace disease throughout the right hemithorax compatible with pneumonia. [id number] associated subpulmonic effusion. 2. Cardiomegaly and coronary atherosclerosis. Head CT 06/19/20 00:00 IMPRESSION: No acute intracranial hemorrhage, mass, or evidence of acute territorial infarct. Mild chronic small vessel ischemic change. Intracranial atherosclerosis. EVIDENCE OF ACUTE STROKE: NO. Thoracentesis Ultrasound 06/19/20 00:00 IMPRESSION: SUCCESSFUL RIGHT THORACENTESIS AND CHEST TUBE PLACEMENT USING ULTRASOUND GUIDANCE. Chest X-Ray 06/20/20 08:00 IMPRESSION: The degree of opacification in the inferior aspect of the right hemithorax has decreased after placement of a pleural drainage catheter. Assessment and Plan - Diagnosis (1) Pneumonia involving right lung Qualifiers: Pneumonia type: due to unspecified organism Lung location: unspecified part of lung Qualified Code(s): J18.9 - Pneumonia, unspecified organism Is this a current diagnosis for this admission?: Yes Plan: CT chest showed extensive pneumonia involving right lung with parapneumonic effusion IR consulted for chest tube placement, done on 06/19 Pleural fluid sent for chemistry analysis and bacterial cultures and fungal cultures, follow-up results General surgery consulted for chest tube management, discussed with them and they have agreed to follow along Broaden antibiotics to meropenem Respiratory culture pending Blood cultures negative 06/20/2020 Continued on meropenem General surgery consulted again for tube management as the previous physician and signed off without evaluating the tube, Dr. Velazquez has agreed to follow with us today. 1600 cc of yellow fluid out since placement 06/21/2020 Broaden antibiotics continued Pleural fluid Gram stain is negative, culture pending Fluid output from chest tube has slowed although breathing has improved along with this, possible we have drained the majority of the fluid out now 06/22/2020 Notably less output from chest tube compared to when it was first placed. Per surgery, will plan to pull chest tube when it is putting out less than 150 cc per 24 hours Antibiotics continue Blood, sputum, and pleural fluid cultures negative so far (2) Atrial fibrillation with rapid ventricular response Is this a current diagnosis for this admission?: Yes (3) COPD (chronic obstructive pulmonary disease) Qualifiers: COPD type: COPD with acute lower respiratory infection Qualified Code(s): J44.0 - Chronic obstructive pulmonary disease with (acute) lower respiratory infection Is this a current diagnosis for this admission?: Yes (4) Acute metabolic encephalopathy Is this a current diagnosis for this admission?: Yes - Time Time Spent with patient: 25-34 minutes Medications reviewed and adjusted accordingly: Yes Anticipated Discharge Disposition: Intermediate Care Facility Anticipated Discharge Timeframe: within 72 hours - Inpatient Certification Based on my medical assessment, after consideration of the patient's comorbidities, presenting symptoms, or acuity I expect that the services needed warrant INPATIENT care.: Yes I certify that my determination is in accordance with my understanding of Medicare's requirements for reasonable and necessary INPATIENT services [42 CFR 412.3e].: Yes Medical Necessity: Significant Comorbidiites Make Outpatient Treatment Too Risky, Need Close Monitoring Due to Risk of Patient Decompensation, Need for IV Antibiotics, Risk of Complication if Not Cared For in Hospital, Risk of Diagnosis Which Will Require Inpatient Eval/Care/Monitoring
[2020-06-23] MEDS: IPRATROPIUM/ALBUTEROL 0.5-2.5 MG/3 ML AMPUL NEB SCH ×7 (00:13→20:30)
[2020-06-23 05:35] LABS: HEMOGLOBIN 9.4 g/dL (13.5-17.0); MEAN CORPUSCULAR HEMOGLOBIN 28.3 pg (27.0-33.4); MEAN CORPUSCULAR HGB CONC 33.5 g/dL (32.0-36.0); MEAN CORPUSCULAR VOLUME 84 fl (80-97); PLATELET COUNT 112 10^3/uL (150-450); RED BLOOD COUNT 3.32 10^6/uL (4.35-5.55); RED CELL DISTRIBUTION WIDTH 16.2 % (11.5-14.0); WHITE BLOOD COUNT 3.2 10^3/uL (4.0-10.5)
[2020-06-23 05:41] LABS: ALBUMIN 2.2 g/dL (3.5-5.0); ALKALINE PHOSPHATASE 70 U/L (38-126); ASPARTATE AMINO TRANSFERASE 40 U/L (17-59); BILIRUBIN,TOTAL 1.6 mg/dL (0.2-1.3); BLOOD UREA NITROGEN 60 mg/dL (7-20); CALCIUM 8.9 mg/dL (8.4-10.2); CHLORIDE 111 mmol/L (98-107); GLUCOSE 132 mg/dL (75-110); POTASSIUM 5.1 mmol/L (3.6-5.0); TOTAL PROTEIN 4.9 g/dL (6.3-8.2)
[2020-06-23 05:46] LABS: CARBON DIOXIDE 31 mmol/L (22-30)
[2020-06-23 05:58] LABS: ANION GAP 3 (5-19)
[2020-06-23] MEDS: DULOXETINE HCL 30 MG CAPSULE.DR PO SCH ×3 (06:00→21:15)
[2020-06-23] MEDS: PANTOPRAZOLE SODIUM 40 MG TABLET.DR PO SCH (06:00)
[2020-06-23] MEDS: MEROPENEM 1 GM in NORMAL SALINE 50 ML IV SCH ×3 (06:00→21:13)
[2020-06-23] MEDS: RINGERS SOLUTION,LACTATED 1,000 ML IV PRN ×2 (06:05→21:13)
--- NOTE | 2020-06-23 07:13 | PDOC PROGRESS REPORT ---
Subjective Progress Note for:: 06/23/20 Subjective:: OUSMANE HOWELL is a 75 year old male who is consulted to our service for further evaluation of atrial fibrillation. The patient is on BiPAP and unable to answer questions therefore the following history is obtained from reviewing his inpatient chart. Unfortunately the patient cannot provide any details of his history however it includes CAD s/p CABG, atrial fibrillation s/p MAZE and LALY ligation, right pleural effusion s/p several thoracentesis at [facility] and COPD. He was admitted on JUN 07 for progressively worse dyspnea and sputum production and eventually diagnosed with a significant right sided pneumonia. In the ED he was noted to be in respiratory distress, BiPAP was started and he was admitted to the ICU as it was thought that he was at an elevated risk for intubation. In the ICU he had episodes of delirium and was c ombative. He eventually improved and his afib was well controlled. He was then transferred out of the ICU earlier today. Unfortunately, he became combative, developed more dyspnea, his BP decreased and has had episodes of rapid atrial fibrillation with rates between 110 and 120 bpm which worsens up to 140's when he is agitated and combative. 06/23/2020: The patient had an uneventful night. He had been able to take some medications p.o. and his heart rate is now well controlled. His nurse states that he had been in and out of sleep throughout the night. He looks a little bit more drowsy today than yesterday however he has no complaints and is still able to answer questions. His chest tube continues to drain light yellow fluid. He states that his lower extremities are not hurting anymore. His telemetry shows paroxysmal atrial fibrillation with a well-controlled rate. Physical exam on 06/23/2020: GENERAL: Awake but drowsy, sitting up, in no distress. HEENT: Normocephalic, atraumatic. Oropharynx is dry. NECK: No JVD. No carotid bruits. LUNGS: Clear to auscultation bilaterally. CARDIOVASCULAR: Irregularly irregular rate and rhythm, no rubs, or gallops. PMI not displaced. EXTREMITIES: No edema, no cyanosis, no clubbing. +2 pulses femoral and pedal pulses bilaterally. SKIN: No lesions or rashes. MUSCULOSKELETAL: No chest tenderness to palpation. Reason For Visit: PNEUMONIA, ATRIAL FIBRILLATION WITH RAPID Physical Exam Vital Signs: Temp Pulse Resp BP Pulse Ox 97.4 F 87 16 108/72 100 06/23/20 03:26 06/23/20 03:59 06/23/20 03:59 06/23/20 03:26 06/23/20 03:59 Intake & Output 06/21/20 06/22/20 06/23/20 06:59 06:59 06:59 Intake Total 136 465 1220 Output Total 2052 632 1225 Balance -1612 -34 562 Weight 65.2 kg 66 kg Results Laboratory Results: 06/23/20 04:36 06/22/20 06/22/20 06/23/20 05:57 05:57 04:36 WBC 4.1 3.2 L RBC 3.16 L 3.32 L Hgb 9.0 L 9.4 L Hct 26.9 L 28.0 L MCV 85 84 MCH 28.4 28.3 MCHC 33.5 33.5 RDW 16.3 H 16.2 H Plt Count 128 L 112 L Seg Neutrophils % Not Reportable Sodium 144.6 Potassium 4.7 Chloride 109 H Carbon Dioxide 28 Anion Gap 8 BUN 71 H Creatinine 0.90 Est GFR ( Amer) > 60 Glucose 158 H Calcium 8.7 06/19/20 14:25 Chest Tube Fluid Gram Stain - Final 06/16/20 06/16/20 06/16/20 09:10 09:10 14:10 Creatine Kinase 63 Troponin I 0.096 0.083 NT-Pro-B Natriuret Pep 06/16/20 06/17/20 06/17/20 18:27 02:34 06:28 Creatine Kinase Troponin I 0.064 0.067 NT-Pro-B Natriuret Pep 4080 H Impressions: Chest CT 06/18/20 09:00 IMPRESSION: 1. Multifocal airspace disease throughout the right hemithorax compatible with pneumonia. [id number] associated subpulmonic effusion. 2. Cardiomegaly and coronary atherosclerosis. Head CT 06/19/20 00:00 IMPRESSION: No acute intracranial hemorrhage, mass, or evidence of acute territorial infarct. Mild chronic small vessel ischemic change. Intracranial atherosclerosis. EVIDENCE OF ACUTE STROKE: NO. Thoracentesis Ultrasound 06/19/20 00:00 IMPRESSION: SUCCESSFUL RIGHT THORACENTESIS AND CHEST TUBE PLACEMENT USING ULTRASOUND GUIDANCE. Chest X-Ray 06/20/20 08:00 IMPRESSION: The degree of opacification in the inferior aspect of the right hemithorax has decreased after placement of a pleural drainage catheter. 06/23/20 04:36 06/23/20 04:36 MCV 84 fl (80-97) 06/23/20 04:36 MCH 28.3 pg (27.0-33.4) 06/23/20 04:36 MCHC 33.5 g/dL (32.0-36.0) 06/23/20 04:36 RDW 16.2 % (11.5-14.0) H 06/23/20 04:36 Seg Neutrophils % Not Reportable 06/22/20 05:57 Carbonic Acid 1.21 mmol/L (1.05-1.35) 06/18/20 09:03 HCO3/H2CO3 Ratio 18:1 06/18/20 09:03 ABG pH 7.36 (7.35-7.45) 06/18/20 09:03 ABG pCO2 40.2 mmHg (35-45) 06/18/20 09:03 ABG pO2 59.5 mmHg (80-100) L 06/18/20 09:03 ABG HCO3 21.9 mmol/L (20-24) 06/18/20 09:03 ABG O2 Saturation 89.8 % (94-98) L 06/18/20 09:03 ABG Base Excess -3.3 mmol/L 06/18/20 09:03 VBG pH 7.42 (7.30-7.42) 06/16/20 09:00 VBG pCO2 40.8 mmHg (35-63) 06/16/20 09:00 VBG HCO3 26.1 mmol/L (20-32) 06/16/20 09:00 VBG Base Excess 1.6 mmol/L 06/16/20 09:00 FiO2 6L 06/18/20 09:03 Chloride 111 mmol/L (98-107) H 06/23/20 04:36 Carbon Dioxide 31 mmol/L (22-30) H 06/23/20 04:36 Anion Gap 3 (5-19) L 06/23/20 04:36 Est GFR ( Amer) > 60 (>60) 06/23/20 04:36 Glucose 132 mg/dL (75-110) H 06/23/20 04:36 Lactic Acid 2.3 mmol/L (0.7-2.1) H 06/16/20 09:00 Calcium 8.9 mg/dL (8.4-10.2) 06/23/20 04:36 Magnesium 2.4 mg/dL (1.6-2.3) H 06/17/20 06:28 Ferritin 494.00 ng/mL (17.9-464.0) H 06/16/20 09:10 Total Bilirubin 1.6 mg/dL (0.2-1.3) H 06/23/20 04:36 AST 40 U/L (17-59) 06/23/20 04:36 Alkaline Phosphatase 70 U/L (38-126) 06/23/20 04:36 Total Protein 4.9 g/dL (6.3-8.2) L 06/23/20 04:36 Albumin 2.2 g/dL (3.5-5.0) L 06/23/20 04:36 Triglycerides 112 mg/dL (<150) 06/17/20 06:28 Cholesterol 51.72 mg/dL (0-200) 06/17/20 06:28 LDL Cholesterol Direct < 30 mg/dL (<100) 06/17/20 06:28 VLDL Cholesterol 22.0 mg/dL (10-31) 06/17/20 06:28 HDL Cholesterol 9 mg/dL (>40) L 06/17/20 06:28 TSH 0.45 uIU/mL (0.47-4.68) L 06/17/20 06:28 Urine Color CANDELARIO 06/16/20 14:25 Urine Appearance CLOUDY 06/16/20 14:25 Urine pH 5.0 (5.0-9.0) 06/16/20 14:25 Ur Specific Holmes 1.019 06/16/20 14:25 Urine Protein 100 mg/dL (NEGATIVE) H 06/16/20 14:25 Urine Glucose (UA) NEGATIVE mg/dL (NEGATIVE) 06/16/20 14:25 Urine Ketones NEGATIVE mg/dL (NEGATIVE) 06/16/20 14:25 Urine Blood SMALL (NEGATIVE) H 06/16/20 14:25 Urine Nitrite NEGATIVE (NEGATIVE) 06/16/20 14:25 Ur Leukocyte Esterase NEGATIVE (NEGATIVE) 06/16/20 14:25 Urine WBC (Auto) 3 /HPF 06/16/20 14:25 Urine RBC (Auto) 1 /HPF 06/16/20 14:25 Fluid Type PLEURAL 06/19/20 14:25 Fluid Source LUNG 06/19/20 14:25 Fluid Color YELLOW 06/19/20 14:25 Fluid Appearance SLIGHTLY HAZY 06/19/20 14:25 Fluid Viscosity LIQUID 06/19/20 14:25 Fluid WBC 380 /uL 06/19/20 14:25 Fluid RBC 1235 /uL 06/19/20 14:25 Fluid Total Protein 2.5 g/dL (.) 06/19/20 14:25 Fluid LDH 279 IU/L (.) 06/19/20 14:25 Fluid Amylase 69 U/L (.) 06/19/20 14:25 06/19/20 14:25 Chest Tube Fluid Gram Stain - Final 06/16/20 06/16/20 06/16/20 09:10 09:10 14:10 Creatine Kinase 63 Troponin I 0.096 0.083 NT-Pro-B Natriuret Pep 06/16/20 06/17/20 06/17/20 18:27 02:34 06:28 Creatine Kinase Troponin I 0.064 0.067 NT-Pro-B Natriuret Pep 4080 H Current Medication List Generic Name Dose Route Start Last Admin Trade Name Freq PRN Reason Stop Dose Admin Albuterol/Ipratropium 3 ml 06/16/20 14:30 06/23/20 03:59 Duoneb 3 Ml Ampul NEB 07/16/20 14:29 3 ml RTQ4 HUNTER Administration Albuterol/Ipratropium 3 ml 06/18/20 15:38 Duoneb 3 Ml Ampul NEB 07/18/20 15:37 RTQ2HP PRN SHORTNESS OF BREATH Dextrose 12.5 gm 06/18/20 15:42 Dextrose Inj 50% Syringe (25 Gm/50 Ml) IV 07/18/20 15:41 PRN PRN FOR BG 50-69 IN ALERT PATIENT Protocol Dextrose 25 gm 06/18/20 15:42 Dextrose Inj 50% Syringe (25 Gm/50 Ml) IV 07/18/20 15:41 PRN PRN See Label Comments Protocol Duloxetine HCl 30 mg 06/16/20 22:00 06/23/20 06:00 Cymbalta 30 Mg Capsule.Dr PO 07/16/20 21:59 30 mg Q8 HUNTER Administration Enoxaparin Sodium 65 mg 06/21/20 22:00 06/22/20 22:33 Lovenox Inj 80 Mg/0.8 Ml Disp.Syrin SUBCUT 07/21/20 21:59 65 mg Q12 HUNTER Administration Glucagon 1 mg 06/18/20 15:42 Glucagen Inj 1 Mg Vial SUBCUT 07/18/20 15:41 PRN PRN Evaluate for BG < 70 Protocol Glucose 15 gm 06/18/20 15:42 Glutose 40% Gel 15 Gm Tube PO 07/18/20 15:41 PRN PRN For BG 50-69 in Alert Patient Protocol Glucose 30 gm 06/18/20 15:42 Glutose 40% Gel 15 Gm Tube PO 07/18/20 15:41 PRN PRN FOR BG < 50 IN ALERT PATIENT Protocol Guaifenesin 600 mg 06/16/20 22:00 06/22/20 22:30 Mucinex Sr 600 Mg Tablet.Sa PO 07/16/20 21:59 600 mg Q12 HUNTER Administration Haloperidol Lactate 2 mg 06/18/20 08:55 06/22/20 22:29 Haldol 5 Mg/Ml Inj 1 Ml Vial IV 07/18/20 08:54 2 mg Q6HP PRN Administration RESTLESSNESS/AGITATION Meropenem 1 gm/ Sodium 50 mls @ 100 mls/hr 06/18/20 15:30 06/23/20 06:36 Chloride IV 06/25/20 15:29 Infused Q8 HUNTER Infusion Lactated Ringer's 1,000 mls @ 75 mls/hr 06/21/20 10:12 06/23/20 06:05 Lactated Ringers 1000 Ml Iv Soln IV 07/21/20 10:11 75 mls/hr CONTINUOUS PRN Administration THIS MED IS NOT "PRN" Methylprednisolone Sodium Succinate 40 mg 06/16/20 22:00 06/22/20 22:30 Solu-Medrol Inj/Pf 40 Mg/1 Ml Sdv IV 07/16/20 21:59 40 mg Q12 HUNTER Administration Metoprolol Succinate 50 mg 06/18/20 10:00 06/22/20 22:30 Toprol Xl 50 Mg Tab.Sr PO 07/18/20 09:59 50 mg Q12 HUNTER Administration Metoprolol Tartrate 5 mg 06/18/20 15:46 06/21/20 16:03 Lopressor Inj/Pf 5 Mg/5 Ml Sdv IV 07/18/20 15:41 5 mg Q4HP PRN Administration HR >110 Morphine Sulfate 4 mg 06/19/20 22:00 06/22/20 18:52 Morphine 10 Mg/Ml Inj IV 06/26/20 21:59 4 mg Q2HP PRN Administration FOR PAIN Pantoprazole Sodium 40 mg 06/17/20 06:00 06/23/20 06:[address] Tablet PO 07/17/20 05:59 40 mg Q6AM HUNTER Administration Sodium Chloride 2.5 ml 06/16/20 14:00 06/23/20 06:07 Saline Flush 2.5 Ml Monoject Prefil Syrin IV 07/16/20 13:59 Not Given Q8 HUNTER Discontinued Medications Generic Name Dose Route Start Last Admin Trade Name Freq PRN Reason Stop Dose Admin Acetaminophen 975 mg 06/16/20 09:36 06/16/20 09:56 Tylenol 325 Mg Tablet PO 06/16/20 09:37 975 mg NOW ONE Administration Dextrose 12.5 gm 06/16/20 13:10 Dextrose Inj 50% Syringe (25 Gm/50 Ml) IV 07/16/20 13:09 PRN PRN FOR BG 50-69 IN ALERT PATIENT Protocol Dextrose 25 gm 06/16/20 13:10 Dextrose Inj 50% Syringe (25 Gm/50 Ml) IV 07/16/20 13:09 PRN PRN See Label Comments Protocol Diltiazem HCl 240 mg 06/16/20 16:00 06/18/20 12:09 Cardizem Cd 240 Mg Capsule.Cr PO 07/16/20 15:59 Not Given DAILY HUNTER Doxazosin Mesylate 2 mg 06/16/20 22:00 06/18/20 21:34 Cardura 2 Mg Tablet PO 07/16/20 21:59 Not Given QHS HNUTER Enoxaparin Sodium 40 mg 06/16/20 14:00 06/21/20 09:31 Lovenox Inj 40 Mg/0.4 Ml Disp.Syrin SUBCUT 07/16/20 13:59 40 mg DAILY HUNTER Administration Furosemide 20 mg 06/17/20 10:00 06/22/20 10:15 Lasix 20 Mg Tablet PO 07/17/20 09:59 20 mg DAILY HUNTER Administration Furosemide 40 mg 06/16/20 21:55 06/16/20 22:38 Lasix Inj/Pf 40 Mg/4 Ml Sdv IV 06/16/20 21:56 Not Given NOW ONE Furosemide Confirm 06/16/20 22:01 06/16/20 22:08 Lasix Inj/Pf 40 Mg/4 Ml Sdv Administered 06/16/20 22:02 40 mg Dose Administration 40 mg .ROUTE .STK-MED ONE Glucagon 1 mg 06/16/20 13:10 Glucagen Inj 1 Mg Vial SUBCUT 07/16/20 13:09 PRN PRN Evaluate for BG < 70 Protocol Glucose 15 gm 06/16/20 13:10 Glutose 40% Gel 15 Gm Tube PO 07/16/20 13:09 PRN PRN For BG 50-69 in Alert Patient Protocol Glucose 30 gm 06/16/20 13:10 Glutose 40% Gel 15 Gm Tube PO 07/16/20 13:09 PRN PRN FOR BG < 50 IN ALERT PATIENT Protocol Haloperidol Lactate 2 mg 06/18/20 06:45 06/18/20 06:46 Haldol 5 Mg/Ml Inj 1 Ml Vial IM 06/18/20 06:46 2 mg NOW ONE Administration Hydralazine HCl 50 mg 06/16/20 22:00 06/19/20 06:19 Apresoline 50 Mg Tablet PO 07/16/20 21:59 Not Given Q8 HUNTER Diltiazem HCl 125 mg in 125 mls @ 0 mls/hr 06/16/20 09:31 06/16/20 18:00 Cardizem Rtu Inj 125 Mg-D5w 125 Ml Premix IV 07/16/20 09:30 2.5 mls/hr CONTINUOUS PRN 2.5 mls/hr THIS MED IS NOT "PRN" Titration Protocol Titrate Levofloxacin/Dextrose 750 mg in 150 mls @ 100 mls/hr 06/16/20 09:39 06/16/20 11:27 Levaquin Rtu 750 Mg/D5w 150 Ml Premix IV 06/16/20 11:08 Infused NOW ONE Infusion Sodium Chloride 1,000 mls @ 0 mls/hr 06/16/20 09:50 06/16/20 10:58 Nacl 0.9% 1000 Ml Iv Soln IV 06/16/20 09:51 Infused BOLUS ONE Infusion Wide Open Sodium Chloride 1,000 mls @ 0 mls/hr 06/16/20 10:14 06/16/20 11:46 Nacl 0.9% 1000 Ml Iv Soln IV 06/16/20 10:15 Infused BOLUS ONE Infusion Wide Open Dexmedetomidine/Sodium Chloride Confirm 06/16/20 13:10 06/16/20 19:08 Precedex 400 Mcg/Ns 100 Ml Iv Premix Administered 06/16/20 13:11 Not Given Dose 400 mcg in 100 mls @ ud IV .STK-MED ONE Dexmedetomidine/Sodium Chloride 400 mcg in 100 mls @ 7.57 mls/hr 06/16/20 13:16 06/17/20 22:49 Precedex 400 Mcg/Ns 100 Ml Iv Premix IV 07/16/20 13:15 Infused CONTINUOUS PRN Titration THIS MED IS NOT "PRN" Protocol 0.4 MCG/KG/HR Levofloxacin/Dextrose 750 mg in 150 mls @ 100 mls/hr 06/17/20 10:00 06/18/20 12:09 Levaquin Rtu 750 Mg/D5w 150 Ml Premix IV 06/24/20 09:59 Infused DAILY HUNTER Infusion Amiodarone HCl 900 mg/ 500 mls @ 0 mls/hr 06/19/20 10:00 06/22/20 15:59 Dextrose IV 06/22/20 09:59 Infused CONTINUOUS PRN Titration THIS MED IS NOT "PRN" Protocol Per Protocol Amiodarone HCl 150 mg/ 100 mls @ 600 mls/hr 06/19/20 10:00 06/19/20 09:43 Dextrose IV 06/19/20 10:09 600 mls/hr NOW ONE Administration Lorazepam 0.5 mg 06/16/20 10:33 06/16/20 10:38 Ativan Inj 2 Mg/1 Ml Vial IV 06/16/20 10:34 0.5 mg NOW ONE Administration Lorazepam 0.5 mg 06/18/20 01:33 06/18/20 02:00 Ativan Inj 2 Mg/1 Ml Vial IV 06/25/20 01:32 0.5 mg Q3HP PRN Administration ANXIETY/AGITATION Meropenem 1 gm 06/18/20 14:00 Merrem 1 Gm Vial IV 06/25/20 13:59 Q8 [facility] Meropenem Confirm 06/20/20 23:13 06/20/20 23:57 Merrem 1 Gm Vial Administered 06/20/20 23:14 Not Given Dose 1 gm .ROUTE .STK-MED ONE Metoprolol Tartrate 5 mg 06/18/20 09:51 06/18/20 10:25 Lopressor Inj/Pf 5 Mg/5 Ml Sdv IV 07/18/20 09:50 5 mg Q6HP PRN Administration HR >110 Morphine Sulfate 1 mg 06/19/20 02:27 06/19/20 06:26 Morphine 10 Mg/Ml Inj IV 06/19/20 02:28 Not Given NOW ONE Scopolamine HBr 1 each 06/19/20 02:24 06/19/20 06:26 Transderm-Scop 1.5 Mg Patch TD 06/19/20 02:25 Not Given NOW ONE Sodium Chloride 2.5 ml 06/16/20 14:00 Saline Flush 2.5 Ml Monoject Prefil Syrin IV 07/16/20 13:59 Q8 [facility] Assessment & Plan - Diagnosis (1) Atrial fibrillation with rapid ventricular response Is this a current diagnosis for this admission?: Yes Plan: The patient remains in paroxysmal atrial fibrillation with a well-controlled heart rate on current doses of metoprolol p.o. There has been no recurrence of wide-complex tachycardia even after discontinuation of amiodarone drip. He is currently anticoagulated with Lovenox. Recommendations: -Continue with current medical management. (2) Coronary artery disease Qualifiers: Coronary Disease-Associated Artery/Lesion type: agdaagux artery Is this a current diagnosis for this admission?: Yes Plan: Details of his coronary artery disease are unknown as the patient cannot provide any of those at this moment. He continues to be hemodynamically stable and without ischemic symptoms. There has been no recurrence of his wide-complex tachycardia even after discontinuing amiodarone drip. He is not on guideline directed medical therapy yet and, given his soft blood pressure, I do not believe he would tolerate addition of OLAF inhibitor or ARB at this point. Given the discrepancy of the official read on the echocardiogram versus the bedside echocardiogram I performed the patient should get a limited undirected bedside echocardiogram to reassess systolic function prior to discharge. The patient should be on high intensity statin therapy however that tablet is fairly big and I am not sure that he can swallow it yet therefore we will continue to defer for now. Recommendations: -Continue with current medical management for now. -Consider addition of baby aspirin. -We will add OLAF inhibitor/ARB once the the patient's blood pressure is improved. (3) Heart valve disease Is this a current diagnosis for this admission?: Yes Plan: His echocardiogram demonstrated mild to moderate aortic stenosis, he does not have a surgical indication at this time therefore we will continue to follow clinically. (4) Pneumonia involving right lung Qualifiers: Pneumonia type: due to unspecified organism Lung location: unspecified part of lung Qualified Code(s): J18.9 - Pneumonia, unspecified organism Is this a current diagnosis for this admission?: Yes Plan: His chest x-ray looks improved after placement of chest tube. It appears that the chest tube output is significantly decreased since yesterday. Further recommendations and management per hospitalist and surgery teams.
[2020-06-23] MEDS: MORPHINE SULFATE 10 MG/ML INJ IV PRN ×3 (08:25→21:14)
--- NOTE | 2020-06-23 08:26 | EKG REPORT ---
SEVERITY:- ABNORMAL ECG - ATRIAL FIBRILLATION /FLUTTER BORDERLINE IVCD WITH LAD PROBABLE INFERIOR INFARCT, AGE INDETERMINATE PROLONGED QTc INTERVAL : Confirmed by: Paul Martins MD 23-Jun-2020 08:25:50
--- NOTE | 2020-06-23 08:39 | PDOC PROGRESS REPORT ---
Subjective Progress Note for:: 06/23/20 Subjective:: Patient comfortable Reason For Visit: PNEUMONIA, ATRIAL FIBRILLATION WITH RAPID Physical Exam Vital Signs: Temp Pulse Resp BP Pulse Ox 97.4 F 72 16 108/72 100 06/23/20 03:26 06/23/20 07:00 06/23/20 03:59 06/23/20 03:26 06/23/20 03:59 Intake & Output 06/22/20 06/23/20 06/24/20 06:59 06:59 06:59 Intake Total 598 2837 Output Total 632 1505 Balance -34 1332 Weight 66 kg 72.8 kg General appearance: PRESENT: no acute distress, thin Respiratory exam: PRESENT: other - Presence of right posterior chest wall small drainage tube Results Laboratory Results: 06/23/20 04:36 06/23/20 04:36 06/23/20 06/23/20 04:36 04:36 WBC 3.2 L RBC 3.32 L Hgb 9.4 L Hct 28.0 L MCV 84 MCH 28.3 MCHC 33.5 RDW 16.2 H Plt Count 112 L Sodium 145.0 Potassium 5.1 H Chloride 111 H Carbon Dioxide 31 H Anion Gap 3 L BUN 60 H Creatinine 0.77 Est GFR ( Amer) > 60 Glucose 132 H Calcium 8.9 Total Bilirubin 1.6 H AST 40 Alkaline Phosphatase 70 Total Protein 4.9 L Albumin 2.2 L 06/19/20 14:25 Chest Tube Fluid Gram Stain - Final 06/16/20 06/16/20 06/16/20 09:10 09:10 14:10 Creatine Kinase 63 Troponin I 0.096 0.083 NT-Pro-B Natriuret Pep 06/16/20 06/17/20 06/17/20 18:27 02:34 06:28 Creatine Kinase Troponin I 0.064 0.067 NT-Pro-B Natriuret Pep 4080 H Impressions: Chest CT 06/18/20 09:00 IMPRESSION: 1. Multifocal airspace disease throughout the right hemithorax compatible with pneumonia. [id number] associated subpulmonic effusion. 2. Cardiomegaly and coronary atherosclerosis. Head CT 06/19/20 00:00 IMPRESSION: No acute intracranial hemorrhage, mass, or evidence of acute territorial infarct. Mild chronic small vessel ischemic change. Intracranial atherosclerosis. EVIDENCE OF ACUTE STROKE: NO. Thoracentesis Ultrasound 06/19/20 00:00 IMPRESSION: SUCCESSFUL RIGHT THORACENTESIS AND CHEST TUBE PLACEMENT USING ULTRASOUND GUIDANCE. Chest X-Ray 06/20/20 08:00 IMPRESSION: The degree of opacification in the inferior aspect of the right hemithorax has decreased after placement of a pleural drainage catheter. Assessment & Plan - Diagnosis (2) COPD (chronic obstructive pulmonary disease) Qualifiers: COPD type: COPD with acute lower respiratory infection Qualified Code(s): J44.0 - Chronic obstructive pulmonary disease with (acute) lower respiratory infection Is this a current diagnosis for this admission?: Yes (3) Recurrent right pleural effusion Is this a current diagnosis for this admission?: Yes - Time Anticipated Discharge Disposition: As per hospitalist Anticipated Discharge Timeframe: As per hospitalist - Plan Summary Plan Summary: Assessment: Congestive heart failure Atrial fibrillation with RVR Status post right chest tube placement by interventional radiology for recurrent right pleural effusion Right chest cavity drainage decreased to 5 mL for the past 12 hours Plan: Plan to remove chest tube tomorrow if the output is less than 150 mL for the past 24 hours As per the cardiology service, it agrees with removal of chest tube once the output decreases remarkedly
[2020-06-23] MEDS: ENOXAPARIN SODIUM INJ 80 MG/0.8 ML DISP.SYRIN SUBCUT SCH ×2 (10:24→21:01)
[2020-06-23] MEDS: GUAIFENESIN 600 MG TABLET.SA PO SCH ×2 (10:29→21:15)
[2020-06-23] MEDS: METHYLPREDNISOLONE INJ 40 MG/1 ML SDV IV SCH ×2 (10:29→21:14)
[2020-06-23] MEDS: METOPROLOL SUCCINATE 50 MG TAB.SR.24H PO SCH ×2 (10:29→21:15)
[2020-06-23] MEDS: HALOPERIDOL LACTATE INJ 5 MG/1 ML VIAL IV PRN (15:38)
--- NOTE | 2020-06-23 20:14 | PDOC PROGRESS REPORT ---
Subjective Subjective:: Patient admitted for acute respiratory failure, pneumonia, chronic A. fib with acute RVR. Transferred out of ICU overnight 06/17. Patient was previously on a diltiazem and Precedex drip which were discontinued prior to transfer. Patient became acutely agitated frequently and heart rate ronni to the 140s to 120s sustained. Haldol helped with agitation momentarily but did not have a sustained effect. Ativan made agitation worse. Respiratory failure worsened as well and patient was started on BiPAP. He began pulling his BiPAP off and desaturating and was put in restraints. Heart rate briefly improved with IV me toprolol, unfortunately patient unable to take oral rate control meds while using BiPAP. Cardiology consulted. Critical care consulted to reevaluate the patient. CT scan of chest done which showed some pleural effusion possibly loculated pneumonia on the right. Radiology consulted for chest tube and fluid analysis labs were ordered along with cultures. General surgery consulted and the case was discussed with them in a stated they would like IR to perform chest tube and they would manage the chest tube thereafter. Patient cannot articulate any complaints due to agitation and using BiPAP. Troponin was positive x2 but flat, blood cultures negative, BNP up to 4000, COVID negative, sodium a bit lower at 131. 06/19/2020 Patient is waxing and waning with his clinical stability. One moment he is breathing well and somewhat alert, the next moment he is requiring BiPAP and appears very unstable as though he may need emergent intubation. This was discussed with Dr. Crocker in ICU yesterday and he would like the patient to remain on the floor for now. Also discussed case with Dr. Gerard in cardiology who agrees patient looks extremely ill at times. BP has been running low and I have discontinued the unnecessary BP meds he was sent to the ICU with. Hemoglobin is a bit lower but there are no signs of acute bleeding. Thoracentesis/chest tube has been ordered today and 100 cc of yellow fluid were removed and sent for analysis and culture. Suspect this will significantly improve the patient's respiratory status. Antibiotics have been broadened to meropenem. Blood cultures remain negative. He is still significantly tachycardic and at times showing V. tach per Dr. Gerard who is started the patient on amiodarone drip assuming BP will allow it. Patient cannot articulate any complaints today. 06/20/2020 Patient seems to have stabilized somewhat today after having his chest tube placed yesterday. Since yesterday, he has had approximately 1600 cc of mostly clear yellow fluid output. I discussed case with general surgeon Dr. Velazquez today and he is agreed to help us manage the chest tube as previous surgeon had signed off without evaluating it. Patient may need a larger chest tube if this currently small chest tube does not provide adequate drainage. I discussed the case with cardiology who will keep the patient on amiodarone drip in the short- term. Patient is a bit tired today and cannot articulate any specific complaints. 06/21/2020 Output from right-sided chest tube has slowed from yesterday but still has decent output. General surgery is following to help us decide if the patient will need a larger chest tube or if the current one can be pulled in the near future. Clinically, the patient is significantly improved and is actually speaking a bit today requesting putting. WBC is going down and his pleural fluid Gram stain and culture are negative so far. Speech therapy is evaluating the patient and will have a modified barium swallow tomorrow. Other than severe generalized fatigue the patient has no new complaints today. 06/22/2020 Patient continues to be gradually more alert and talkative. Speech therapy is working with him and we are trying to give him thin pudding to hopefully help retrain and strengthen his swallowing muscles. We will try to avoid an NG tube or PEG tube if we are able to do so. He is now only requiring 2 L nasal cannula which is a large improvement from when he came into the ICU. Respiratory culture and pleural effusion cultures are both negative. Labs are reviewed and relatively stable. Patient has no new complaints today. Chest tube seems to be draining less and less yellow fluid. General surgery planning to remove the chest tube plan and is putting out less than 150 cc in 24 hours. Lasix has been stopped, IV fluids given for clinical dehydration. 06/23/2020 Patient still alert today and tolerating some pudding from time to time along with his crushed medications. I long discussion with his sister who came to visit him and answered many of her questions and also gave very detailed account of his clinical course thus far and our plan going forward. I think he would be best served by a nursing facility at discharge and she is in agreement with this and would like to speak with the shelter case manager about different facilities that might be an option for him. He is currently maintained on 4 L nasal cannula we will be weaning this is possible. Blood cultures negative and pleural effusion cultures negative. Cytology of pleural fluid was negative for malignancy but did show acute inflammation. The sister states that he has these recurrent right pleural effusions of unknown etiology. This is presumably from acute CHF likely from worsening of his A. fib. Alternatively, his A. fib could be causing his pleural effusion from resultant CHF. Patient has no new complaints today. General surgery may remove his chest tube tomorrow if it is putting out less than 150 cc/day. Reason For Visit: PNEUMONIA, ATRIAL FIBRILLATION WITH RAPID Physical Exam Vital Signs: Temp Pulse Resp BP Pulse Ox 97.3 F 86 16 152/50 H 97 06/23/20 15:48 06/23/20 16:00 06/23/20 16:00 06/23/20 15:48 06/23/20 16:00 Intake & Output 06/22/20 06/23/20 06/24/20 06:59 06:59 06:59 Intake Total 598 2837 611 Output Total 632 1505 400 Balance -34 1332 211 Weight 66 kg 72.8 kg Exam: General appearance: PRESENT: no acute distress, well-developed, well-nourished, chronically ill-appearing, states he feels okay today Head exam: PRESENT: atraumatic, normocephalic Eye exam: PRESENT: conjunctiva pink Mouth exam: PRESENT: moist Respiratory exam: PRESENT: Mild right-sided crackles, rales, rhonchi ABSENT: wheezes Cardiovascular exam: PRESENT: irregular rhythm, tachycardia. ABSENT: diastolic murmur, systolic murmur GI/Abdominal exam: PRESENT: normal bowel sounds, soft. ABSENT: distended, guarding, mass, organolmegaly, rebound, tenderness Neurological exam: PRESENT: alert, awake. ABSENT: oriented to person, oriented to place, oriented to time, oriented to situation Psychiatric exam: PRESENT: Calm Skin exam: PRESENT: dry, intact, warm, chest tube in right thorax draining relatively clear yellow fluid Results Laboratory Results: 06/23/20 04:36 06/23/20 04:36 06/23/20 06/23/20 04:36 04:36 WBC 3.2 L RBC 3.32 L Hgb 9.4 L Hct 28.0 L MCV 84 MCH 28.3 MCHC 33.5 RDW 16.2 H Plt Count 112 L Sodium 145.0 Potassium 5.1 H Chloride 111 H Carbon Dioxide 31 H Anion Gap 3 L BUN 60 H Creatinine 0.77 Est GFR ( Amer) > 60 Glucose 132 H Calcium 8.9 Total Bilirubin 1.6 H AST 40 Alkaline Phosphatase 70 Total Protein 4.9 L Albumin 2.2 L 06/19/20 14:25 Chest Tube Fluid Gram Stain - Final 06/19/20 14:25 Chest Tube Fluid Body Fluid Culture - Final NO AEROBIC OR ANAEROBIC ORGANISMS RECOVERED 06/16/20 06/16/20 06/16/20 09:10 09:10 14:10 Creatine Kinase 63 Troponin I 0.096 0.083 NT-Pro-B Natriuret Pep 06/16/20 06/17/20 06/17/20 18:27 02:34 06:28 Creatine Kinase Troponin I 0.064 0.067 NT-Pro-B Natriuret Pep 4080 H Impressions: Chest CT 06/18/20 09:00 IMPRESSION: 1. Multifocal airspace disease throughout the right hemithorax compatible with pneumonia. [id number] associated subpulmonic effusion. 2. Cardiomegaly and coronary atherosclerosis. Head CT 06/19/20 00:00 IMPRESSION: No acute intracranial hemorrhage, mass, or evidence of acute territorial infarct. Mild chronic small vessel ischemic change. Intracranial atherosclerosis. EVIDENCE OF ACUTE STROKE: NO. Thoracentesis Ultrasound 06/19/20 00:00 IMPRESSION: SUCCESSFUL RIGHT THORACENTESIS AND CHEST TUBE PLACEMENT USING ULTRASOUND GUIDANCE. Chest X-Ray 06/20/20 08:00 IMPRESSION: The degree of opacification in the inferior aspect of the right hemithorax has decreased after placement of a pleural drainage catheter. Assessment and Plan - Diagnosis (1) Pneumonia involving right lung Qualifiers: Pneumonia type: due to unspecified organism Lung location: unspecified part of lung Qualified Code(s): J18.9 - Pneumonia, unspecified organism Is this a current diagnosis for this admission?: Yes Plan: CT chest showed extensive pneumonia involving right lung with parapneumonic effusion IR consulted for chest tube placement, done on 06/19 Pleural fluid sent for chemistry analysis and bacterial cultures and fungal cultures, follow-up results General surgery consulted for chest tube management, discussed with them and they have agreed to follow along Broaden antibiotics to meropenem Respiratory culture pending Blood cultures negative 06/20/2020 Continued on meropenem General surgery consulted again for tube management as the previous physician and signed off without evaluating the tube, Dr. Velazquez has agreed to follow with us today. 1600 cc of yellow fluid out since placement 06/21/2020 Broaden antibiotics continued Pleural fluid Gram stain is negative, culture pending Fluid output from chest tube has slowed although breathing has improved along with this, possible we have drained the majority of the fluid out now 06/22/2020 Notably less output from chest tube compared to when it was first placed. Per surgery, will plan to pull chest tube when it is putting out less than 150 cc per 24 hours Antibiotics continue Blood, sputum, and pleural fluid cultures negative so far 06/23/2020 May attempt pull chest tube tomorrow if putting out small amount of fluid Cultures all negative so far and pleural effusion cytology negative for ahmet lin, only showed inflammation (2) Atrial fibrillation with rapid ventricular response Is this a current diagnosis for this admission?: Yes Plan: Gradually restart p.o. rate control meds as able IV as needed metoprolol for heart rate greater than 110 bpm Cardiology consult: Case discussed with them multiple times, amiodarone drip started by them Echocardiogram showed EF 35% with moderate to severe global hypokinesis of the left ventricle with reduced systolic function Occasional V. tach noted on telemetry per cardiology, started on amiodarone drip as BP allows Cardiology recommended gentle IV fluids stating patient looks severely dehydrated, started LR at 75 cc/h 06/23/2020 Amiodarone drip stopped by cardiology, heart rate remained stable off of this and only on oral medications (3) COPD (chronic obstructive pulmonary disease) Qualifiers: COPD type: COPD with acute lower respiratory infection Qualified Code(s): J44.0 - Chronic obstructive pulmonary disease with (acute) lower respiratory infection Is this a current diagnosis for this admission?: Yes (4) Acute metabolic encephalopathy Is this a current diagnosis for this admission?: Yes - Time Time Spent with patient: 25-34 minutes Medications reviewed and adjusted accordingly: Yes Anticipated Discharge Disposition: Retirement Facility Anticipated Discharge Timeframe: within 72 hours - Inpatient Certification Based on my medical assessment, after consideration of the patient's comorbidities, presenting symptoms, or acuity I expect that the services needed warrant INPATIENT care.: Yes I certify that my determination is in accordance with my understanding of Medicare's requirements for reasonable and necessary INPATIENT services [42 CFR 412.3e].: Yes Medical Necessity: Significant Comorbidiites Make Outpatient Treatment Too Risky, Need Close Monitoring Due to Risk of Patient Decompensation, Risk of Complication if Not Cared For in Hospital, Risk of Diagnosis Which Will Require Inpatient Eval/Care/Monitoring
[2020-06-24] MEDS: IPRATROPIUM/ALBUTEROL 0.5-2.5 MG/3 ML AMPUL NEB SCH ×6 (00:30→19:51)
[2020-06-24] MEDS: PANTOPRAZOLE SODIUM 40 MG TABLET.DR PO SCH (05:17)
[2020-06-24] MEDS: MEROPENEM 1 GM in NORMAL SALINE 50 ML IV SCH ×3 (05:17→22:09)
[2020-06-24] MEDS: MORPHINE SULFATE 10 MG/ML INJ IV PRN ×3 (05:17→22:12)
[2020-06-24] MEDS: DULOXETINE HCL 30 MG CAPSULE.DR PO SCH ×3 (05:17→22:10)
--- NOTE | 2020-06-24 07:18 | PDOC PROGRESS REPORT ---
Subjective Progress Note for:: 06/24/20 Subjective:: OUSMANE HOWELL is a 75 year old male who is consulted to our service for further evaluation of atrial fibrillation. The patient is on BiPAP and unable to answer questions therefore the following history is obtained from reviewing his inpatient chart. Unfortunately the patient cannot provide any details of his history however it includes CAD s/p CABG, atrial fibrillation s/p MAZE and LALY ligation, right pleural effusion s/p several thoracentesis at [facility] and COPD. He was admitted on JUN 07 for progressively worse dyspnea and sputum production and eventually diagnosed with a significant right sided pneumonia. In the ED he was noted to be in respiratory distress, BiPAP was started and he was admitted to the ICU as it was thought that he was at an elevated risk for intubation. In the ICU he had episodes of delirium and was c ombative. He eventually improved and his afib was well controlled. He was then transferred out of the ICU earlier today. Unfortunately, he became combative, developed more dyspnea, his BP decreased and has had episodes of rapid atrial fibrillation with rates between 110 and 120 bpm which worsens up to 140's when he is agitated and combative. 06/24/2020: The patient had an uneventful night. He continues to tolerate some medications p.o. and his heart rate is now well controlled without recurrence of wide- complex tachycardia on telemetry. This morning he complains of pain all over his body but appears to be more sleepy than yesterday even though he open his eyes and answers questions but falls back asleep fairly quickly, he appears to have received 4 mg of morphine and 0527 today. His nurse states that he had been in and out of sleep throughout the night and day yesterday. His chest tube continues to drain light yellow fluid. He states that his lower extremities are not hurting anymore. His telemetry shows paroxysmal atrial fibrillation with a well-controlled rate without recurrence of wide-complex tachycardia. Physical exam on 06/24/2020: GENERAL: Sleeping but arousable, falls back asleep quickly, sitting up, in no distress. HEENT: Normocephalic, atraumatic. Oropharynx is dry. NECK: No JVD. No carotid bruits. LUNGS: Clear to auscultation bilaterally. CARDIOVASCULAR: Irregularly irregular rate and rhythm, no rubs, or gallops. PMI not displaced. EXTREMITIES: No edema, no cyanosis, no clubbing. +2 pulses femoral and pedal pulses bilaterally. SKIN: No lesions or rashes. MUSCULOSKELETAL: No chest tenderness to palpation. Reason For Visit: PNEUMONIA, ATRIAL FIBRILLATION WITH RAPID Physical Exam Vital Signs: Temp Pulse Resp BP Pulse Ox 97.3 F 76 16 119/50 L 96 06/23/20 23:58 06/24/20 04:35 06/24/20 04:35 06/23/20 23:58 06/24/20 04:35 Intake & Output 06/22/20 06/23/20 06/24/20 06:59 06:59 06:59 Intake Total 598 2837 1736 Output Total 632 1505 625 Balance -34 1332 1111 Weight 66 kg 72.8 kg Results Laboratory Results: 06/23/20 04:36 06/23/20 04:36 06/19/20 14:25 Chest Tube Fluid Gram Stain - Final 06/19/20 14:25 Chest Tube Fluid Body Fluid Culture - Final NO AEROBIC OR ANAEROBIC ORGANISMS RECOVERED 06/16/20 06/16/20 06/16/20 09:10 09:10 14:10 Creatine Kinase 63 Troponin I 0.096 0.083 NT-Pro-B Natriuret Pep 06/16/20 06/17/20 06/17/20 18:27 02:34 06:28 Creatine Kinase Troponin I 0.064 0.067 NT-Pro-B Natriuret Pep 4080 H Impressions: Chest CT 06/18/20 09:00 IMPRESSION: 1. Multifocal airspace disease throughout the right hemithorax compatible with pneumonia. [id number]-bepgjvry associated subpulmonic effusion. 2. Cardiomegaly and coronary atherosclerosis. Head CT 06/19/20 00:00 IMPRESSION: No acute intracranial hemorrhage, mass, or evidence of acute territorial infarct. Mild chronic small vessel ischemic change. Intracranial atherosclerosis. EVIDENCE OF ACUTE STROKE: NO. Thoracentesis Ultrasound 06/19/20 00:00 IMPRESSION: SUCCESSFUL RIGHT THORACENTESIS AND CHEST TUBE PLACEMENT USING ULTRASOUND GUIDANCE. Chest X-Ray 06/20/20 08:00 IMPRESSION: The degree of opacification in the inferior aspect of the right hemithorax has decreased after placement of a pleural drainage catheter. Assessment & Plan - Diagnosis (1) Atrial fibrillation with rapid ventricular response Is this a current diagnosis for this admission?: Yes Plan: The patient remains in paroxysmal atrial fibrillation with a well-controlled heart rate on current doses of metoprolol p.o. There has been no recurrence of wide-complex tachycardia even after discontinuation of amiodarone drip. He is currently not anticoagulated. Recommendations: -Continue with current medical management. -Resume anticoagulation as soon as feasible. (2) Coronary artery disease Qualifiers: Coronary Disease-Associated Artery/Lesion type: [place] artery Is this a current diagnosis for this admission?: Yes Plan: Details of his coronary artery disease are unknown as the patient cannot provide any of those at this moment. He continues to be hemodynamically stable and without ischemic symptoms. There has been no recurrence of his wide-complex tachycardia even after discontinuing amiodarone drip. He is not on guideline directed medical therapy yet and, given his soft blood pressure, I do not believe he would tolerate addition of OLAF inhibitor or ARB at this point. Given the discrepancy of the official read on the echocardiogram versus the bedside echocardiogram I performed the patient should get a limited and directed bedside echocardiogram to reassess systolic function prior to discharge. The patient should be on high intensity statin therapy however that tablet is fairly big and I am not sure that he can swallow it yet therefore we will continue to defer for now. Recommendations: -Continue with current medical management for now. -Consider addition of baby aspirin. -We will add OLAF inhibitor/ARB once the the patient's blood pressure is improved. (3) Heart valve disease Is this a current diagnosis for this admission?: Yes Plan: His echocardiogram demonstrated mild to moderate aortic stenosis, he does not have a surgical indication at this time therefore we will continue to follow clinically. (4) Pneumonia involving right lung Qualifiers: Pneumonia type: due to unspecified organism Lung location: unspecified part of lung Qualified Code(s): J18.9 - Pneumonia, unspecified organism Is this a current diagnosis for this admission?: Yes Plan: His chest x-ray looks improved after placement of chest tube. It appears that the chest tube output is significantly decreased since yesterday. Further recommendations and management per hospitalist and surgery teams.
[2020-06-24 08:28] LABS: BLOOD UREA NITROGEN 53 mg/dL (7-20); CALCIUM 8.9 mg/dL (8.4-10.2); GLUCOSE 120 mg/dL (75-110); POTASSIUM 5.5 mmol/L (3.6-5.0)
[2020-06-24 08:33] LABS: CARBON DIOXIDE 32 mmol/L (22-30); CHLORIDE 109 mmol/L (98-107)
[2020-06-24 08:39] LABS: ANION GAP 4 (5-19)
--- NOTE | 2020-06-24 09:43 | RADIOLOGY REPORT (SQ) ---
EXAM DESCRIPTION: COOKIE SWALLOW IMAGES COMPLETED DATE/TIME: 06/22/2020 10:59 am REASON FOR STUDY: signs of aspiration at bedside coughing with meals COMPARISON: None. TECHNIQUE: Videofluoroscopic swallowing examination was performed in conjunction with speech patholo gy. Videofluoroscopic imaging was obtained and reviewed and these are the findings: RADIATION DOSE: 2.9 minutes of fluoroscopy was used. 1 images saved to PACS. LIMITATIONS: None FINDINGS: The patient was brought into the fluoro room and placed upright on a modified barium swall ow chair. The patient was then given multiple consistencies mixed with barium to swallow under live fluoroscopic video guidance. According to the Speech Pathologist there was laryngeal penetration and tracheal aspiration of thin liquids. Patient demonstrated a weak swallow with moderate post swallow residual contrast in the vallecular and piriform sinuses especially with the thicker consistencies. IMPRESSION: LARYNGEAL PENETRATION AND TRACHEAL ASPIRATION OF THIN LIQUIDS. PLEASE SEE SPEECH PATHOLO GIST REPORT FOR OTHER FINDINGS AND RECOMMENDATIONS. COMMENT: Quality ID [id number]: Final reports for procedures using fluoroscopy that document radiation exp osure indices, or exposure time and number of fluorographic images (if radiation exposure indices are not available) TECHNICAL DOCUMENTATION: JOB ID: [id number] 2010 [employer]- All Rights Reserved Reading location - IP/workstation name: [email or web address] [id number]
[2020-06-24] MEDS ORDERED: SODIUM POLYSTYRENE SULFONATE 15 GM/60 ML PO ONE (10:00)
[2020-06-24] MEDS: ENOXAPARIN SODIUM INJ 80 MG/0.8 ML DISP.SYRIN SUBCUT SCH ×2 (10:13→22:03)
[2020-06-24] MEDS: METHYLPREDNISOLONE INJ 40 MG/1 ML SDV IV SCH ×2 (10:15→22:10)
[2020-06-24] MEDS: GUAIFENESIN 600 MG TABLET.SA PO SCH ×2 (10:15→22:35)
[2020-06-24] MEDS: METOPROLOL SUCCINATE 50 MG TAB.SR.24H PO SCH ×2 (10:15→22:10)
[2020-06-24] MEDS: HALOPERIDOL LACTATE INJ 5 MG/1 ML VIAL IV PRN ×2 (13:57→22:10)
--- NOTE | 2020-06-24 14:39 | PDOC PROGRESS REPORT ---
Subjective Subjective:: Patient admitted for acute respiratory failure, pneumonia, chronic A. fib with acute RVR. Transferred out of ICU overnight 06/17. Patient was previously on a diltiazem and Precedex drip which were discontinued prior to transfer. Patient became acutely agitated frequently and heart rate ronni to the 140s to 120s sustained. Haldol helped with agitation momentarily but did not have a sustained effect. Ativan made agitation worse. Respiratory failure worsened as well and patient was started on BiPAP. He began pulling his BiPAP off and desaturating and was put in restraints. Heart rate briefly improved with IV me toprolol, unfortunately patient unable to take oral rate control meds while using BiPAP. Cardiology consulted. Critical care consulted to reevaluate the patient. CT scan of chest done which showed some pleural effusion possibly loculated pneumonia on the right. Radiology consulted for chest tube and fluid analysis labs were ordered along with cultures. General surgery consulted and the case was discussed with them in a stated they would like IR to perform chest tube and they would manage the chest tube thereafter. Patient cannot articulate any complaints due to agitation and using BiPAP. Troponin was positive x2 but flat, blood cultures negative, BNP up to 4000, COVID negative, sodium a bit lower at 131. 06/19/2020 Patient is waxing and waning with his clinical stability. One moment he is breathing well and somewhat alert, the next moment he is requiring BiPAP and appears very unstable as though he may need emergent intubation. This was discussed with Dr. Crocker in ICU yesterday and he would like the patient to remain on the floor for now. Also discussed case with Dr. Gerard in cardiology who agrees patient looks extremely ill at times. BP has been running low and I have discontinued the unnecessary BP meds he was sent to the ICU with. Hemoglobin is a bit lower but there are no signs of acute bleeding. Thoracentesis/chest tube has been ordered today and 100 cc of yellow fluid were removed and sent for analysis and culture. Suspect this will significantly improve the patient's respiratory status. Antibiotics have been broadened to meropenem. Blood cultures remain negative. He is still significantly tachycardic and at times showing V. tach per Dr. Gerard who is started the patient on amiodarone drip assuming BP will allow it. Patient cannot articulate any complaints today. 06/20/2020 Patient seems to have stabilized somewhat today after having his chest tube placed yesterday. Since yesterday, he has had approximately 1600 cc of mostly clear yellow fluid output. I discussed case with general surgeon Dr. Velazquez today and he is agreed to help us manage the chest tube as previous surgeon had signed off without evaluating it. Patient may need a larger chest tube if this currently small chest tube does not provide adequate drainage. I discussed the case with cardiology who will keep the patient on amiodarone drip in the short- term. Patient is a bit tired today and cannot articulate any specific complaints. 06/21/2020 Output from right-sided chest tube has slowed from yesterday but still has decent output. General surgery is following to help us decide if the patient will need a larger chest tube or if the current one can be pulled in the near future. Clinically, the patient is significantly improved and is actually speaking a bit today requesting putting. WBC is going down and his pleural fluid Gram stain and culture are negative so far. Speech therapy is evaluating the patient and will have a modified barium swallow tomorrow. Other than severe generalized fatigue the patient has no new complaints today. 06/22/2020 Patient continues to be gradually more alert and talkative. Speech therapy is working with him and we are trying to give him thin pudding to hopefully help retrain and strengthen his swallowing muscles. We will try to avoid an NG tube or PEG tube if we are able to do so. He is now only requiring 2 L nasal cannula which is a large improvement from when he came into the ICU. Respiratory culture and pleural effusion cultures are both negative. Labs are reviewed and relatively stable. Patient has no new complaints today. Chest tube seems to be draining less and less yellow fluid. General surgery planning to remove the chest tube plan and is putting out less than 150 cc in 24 hours. Lasix has been stopped, IV fluids given for clinical dehydration. 06/23/2020 Patient still alert today and tolerating some pudding from time to time along with his crushed medications. I long discussion with his sister who came to visit him and answered many of her questions and also gave very detailed account of his clinical course thus far and our plan going forward. I think he would be best served by a nursing facility at discharge and she is in agreement with this and would like to speak with the patient case manager about different facilities that might be an option for him. He is currently maintained on 4 L nasal cannula we will be weaning this is possible. Blood cultures negative and pleural effusion cultures negative. Cytology of pleural fluid was negative for malignancy but did show acute inflammation. The sister states that he has these recurrent right pleural effusions of unknown etiology. This is presumably from acute CHF likely from worsening of his A. fib. Alternatively, his A. fib could be causing his pleural effusion from resultant CHF. Patient has no new complaints today. General surgery may remove his chest tube tomorrow if it is putting out less than 150 cc/day. 06/24/2020 Chest tube seems to have had a large decline in its output, probably much less than 150 cc and it may qualify for removal based on the surgery team's guideline for removal. Patient has a great deal of therapy needed had of him if he is to make a recovery. Fortunately, he seems to be very motivated to be active and get out of bed, although I discussed with him that he must have a lot of assistance if he is to get up and move around. Apparently, patient's family member who visited yesterday was very angry that the nurses have been giving her updates and when I gave her an update it was essentially the same information that the nurses were giving her. I answered all of her questions to the best my ability and went to great detail explaining the patient's clinical course and the plan going forward. She actually was very appreciative and thanked me multiple times throughout the conversation for my care. The staff here is always available to answer any questions family may have with regard to the patient's care and I made sure that family member was aware of this patient has no new complaints today.. Reason For Visit: PNEUMONIA, ATRIAL FIBRILLATION WITH RAPID Physical Exam Vital Signs: Temp Pulse Resp BP Pulse Ox 97.3 F 82 16 98/61 L 97 06/24/20 10:00 06/24/20 14:00 06/24/20 12:06 06/24/20 07:41 06/24/20 12:06 Intake & Output 06/23/20 06/24/20 06/25/20 06:59 06:59 06:59 Intake Total 2837 1936 Output Total 1505 800 Balance 1332 1136 Weight 72.8 kg 71.9 kg Exam: General appearance: PRESENT: no acute distress, well-developed, well-nourished, chronically ill-appearing, states he wants to get up out of bed as much as possible Head exam: PRESENT: atraumatic, normocephalic Eye exam: PRESENT: conjunctiva pink Mouth exam: PRESENT: moist Respiratory exam: PRESENT: Scant right-sided crackles, rales, rhonchi ABSENT: wheezes Cardiovascular exam: PRESENT: irregular rhythm, tachycardia. ABSENT: diastolic murmur, systolic murmur GI/Abdominal exam: PRESENT: normal bowel sounds, soft. ABSENT: distended, guarding, mass, organolmegaly, rebound, tenderness Neurological exam: PRESENT: alert, awake. ABSENT: oriented to person, oriented to place, oriented to time, oriented to situation Psychiatric exam: PRESENT: Calm Skin exam: PRESENT: dry, intact, warm, chest tube in right thorax draining relatively clear yellow fluid Results Laboratory Results: 06/23/20 04:36 06/24/20 07:50 06/24/20 07:50 Sodium 144.6 Potassium 5.5 H Chloride 109 H Carbon Dioxide 32 H Anion Gap 4 L BUN 53 H Creatinine 0.74 Est GFR ( Amer) > 60 Glucose 120 H Calcium 8.9 06/19/20 14:25 Chest Tube Fluid Gram Stain - Final 06/19/20 14:25 Chest Tube Fluid Body Fluid Culture - Final NO AEROBIC OR ANAEROBIC ORGANISMS RECOVERED 06/16/20 06/16/20 06/16/20 09:10 09:10 14:10 Creatine Kinase 63 Troponin I 0.096 0.083 NT-Pro-B Natriuret Pep 06/16/20 06/17/20 06/17/20 18:27 02:34 06:28 Creatine Kinase Troponin I 0.064 0.067 NT-Pro-B Natriuret Pep 4080 H Impressions: Chest CT 06/18/20 09:00 IMPRESSION: 1. Multifocal airspace disease throughout the right hemithorax c ompatible with pneumonia. [id number] associated subpulmonic effusion. 2. Cardiomegaly and coronary atherosclerosis. Head CT 06/19/20 00:00 IMPRESSION: No acute intracranial hemorrhage, mass, or evidence of acute territorial infarct. Mild chronic small vessel ischemic change. Intracranial atherosclerosis. EVIDENCE OF ACUTE STROKE: NO. Thoracentesis Ultrasound 06/19/20 00:00 IMPRESSION: SUCCESSFUL RIGHT THORACENTESIS AND CHEST TUBE PLACEMENT USING ULTRASOUND GUIDANCE. Chest X-Ray 06/20/20 08:00 IMPRESSION: The degree of opacification in the inferior aspect of the right hemithorax has decreased after placement of a pleural drainage catheter. Modified Barium Swallow 06/22/20 00:01 IMPRESSION: LARYNGEAL PENETRATION AND TRACHEAL ASPIRATION OF THIN LIQUIDS. PLEASE SEE SPEECH PATHOLOGIST REPORT FOR OTHER FINDINGS AND RECOMMENDATIONS. Assessment and Plan - Diagnosis (1) Pneumonia involving right lung Qualifiers: Pneumonia type: due to unspecified organism Lung location: unspecified part of lung Qualified Code(s): J18.9 - Pneumonia, unspecified organism Is this a current diagnosis for this admission?: Yes Plan: CT chest showed extensive pneumonia involving right lung with parapneumonic effusion IR consulted for chest tube placement, done on 06/19 Pleural fluid sent for chemistry analysis and bacterial cultures and fungal cultures, follow-up results General surgery consulted for chest tube management, discussed with them and they have agreed to follow along Broaden antibiotics to meropenem Respiratory culture pending Blood cultures negative 06/20/2020 Continued on meropenem General surgery consulted again for tube management as the previous physician and signed off without evaluating the tube, Dr. Velazquez has agreed to follow with us today. 1600 cc of yellow fluid out since placement 06/21/2020 Broaden antibiotics continued Pleural fluid Gram stain is negative, culture pending Fluid output from chest tube has slowed although breathing has improved along with this, possible we have drained the majority of the fluid out now 06/22/2020 Notably less output from chest tube compared to when it was first placed. Per surgery, will plan to pull chest tube when it is putting out less than 150 cc per 24 hours Antibiotics continue Blood, sputum, and pleural fluid cultures negative so far 06/23/2020 May attempt pull chest tube tomorrow if putting out small amount of fluid Cultures all negative so far and pleural effusion cytology negative for malignancy, only showed inflammation 06/24/2020 Chest tube seems to be putting out approximately 75 cc since yesterday assuming this is a correct volume in the fluid collection system next of the bed. Per nursing, chest tube was leaking quite a bit of fluid onto the bed overnight. We will leave it to surgery to decide if they want to remove the chest tube. (2) Atrial fibrillation with rapid ventricular response Is this a current diagnosis for this admission?: Yes Plan: Gradually restart p.o. rate control meds as able IV as needed metoprolol for heart rate greater than 110 bpm Cardiology consult: Case discussed with them multiple times, amiodarone drip started by them Echocardiogram showed EF 35% with moderate to severe global hypokinesis of the left ventricle with reduced systolic function Occasional V. tach noted on telemetry per cardiology, started on amiodarone drip as BP allows Cardiology recommended gentle IV fluids stating patient looks severely dehydrated, started LR at 75 cc/h 06/23/2020 Amiodarone drip stopped by cardiology, heart rate remained stable off of this and only on oral medications 06/24/2020 Cardiology following: Patient needs to be put back on anticoagulation when we know he would not require any further surgical intervention Oral rate control medications continued, cardiology considering adding aspirin (3) COPD (chronic obstructive pulmonary disease) Qualifiers: COPD type: COPD with acute lower respiratory infection Qualified Code(s): J44.0 - Chronic obstructive pulmonary disease with (acute) lower respiratory infection Is this a current diagnosis for this admission?: Yes (4) Acute metabolic encephalopathy Is this a current diagnosis for this admission?: Yes - Time Time Spent with patient: 25-34 minutes Medications reviewed and adjusted accordingly: Yes Anticipated Discharge Disposition: Prison Facility Anticipated Discharge Timeframe: within 72 hours - Inpatient Certification Based on my medical assessment, after consideration of the patient's comorbidities, presenting symptoms, or acuity I expect that the services needed warrant INPATIENT care.: Yes I certify that my determination is in accordance with my understanding of Medicare's requirements for reasonable and necessary INPATIENT services [42 CFR 412.3e].: Yes Medical Necessity: Significant Comorbidiites Make Outpatient Treatment Too Risky, Need Close Monitoring Due to Risk of Patient Decompensation, Risk of Complication if Not Cared For in Hospital, Risk of Diagnosis Which Will Require Inpatient Eval/Care/Monitoring
--- NOTE | 2020-06-24 18:53 | PDOC PROGRESS REPORT ---
Subjective Progress Note for:: 06/24/20 Subjective:: patient comfortable Reason For Visit: PNEUMONIA, ATRIAL FIBRILLATION WITH RAPID Physical Exam Vital Signs: Temp Pulse Resp BP Pulse Ox 97.3 F 78 16 98/61 L 97 06/24/20 10:00 06/24/20 16:09 06/24/20 16:09 06/24/20 07:41 06/24/20 16:09 Intake & Output 06/23/20 06/24/20 06/25/20 06:59 06:59 06:59 Intake Total 2837 1936 Output Total 1505 800 Balance 1332 1136 Weight 72.8 kg 71.9 kg General appearance: PRESENT: no acute distress, thin Respiratory exam: PRESENT: other - right chest= chest tube site covered with dessings c/d/i Results Laboratory Results: 06/23/20 04:36 06/24/20 07:50 06/24/20 07:50 Sodium 144.6 Potassium 5.5 H Chloride 109 H Carbon Dioxide 32 H Anion Gap 4 L BUN 53 H Creatinine 0.74 Est GFR ( Amer) > 60 Glucose 120 H Calcium 8.9 06/16/20 06/16/20 06/16/20 09:10 09:10 14:10 Creatine Kinase 63 Troponin I 0.096 0.083 NT-Pro-B Natriuret Pep 06/16/20 06/17/20 06/17/20 18:27 02:34 06:28 Creatine Kinase Troponin I 0.064 0.067 NT-Pro-B Natriuret Pep 4080 H Impressions: Chest CT 06/18/20 09:00 IMPRESSION: 1. Multifocal airspace disease throughout the right hemithorax com patible with pneumonia. [id number] associated subpulmonic effusion. 2. Cardiomegaly and coronary atherosclerosis. Head CT 06/19/20 00:00 IMPRESSION: No acute intracranial hemorrhage, mass, or evidence of acute territorial infarct. Mild chronic small vessel ischemic change. Intracranial atherosclerosis. EVIDENCE OF ACUTE STROKE: NO. Thoracentesis Ultrasound 06/19/20 00:00 IMPRESSION: SUCCESSFUL RIGHT THORACENTESIS AND CHEST TUBE PLACEMENT USING ULTRASOUND GUIDANCE. Chest X-Ray 06/20/20 08:00 IMPRESSION: The degree of opacification in the inferior aspect of the right hemithorax has decreased after placement of a pleural drainage catheter. Modified Barium Swallow 06/22/20 00:01 IMPRESSION: LARYNGEAL PENETRATION AND TRACHEAL ASPIRATION OF THIN LIQUIDS. PLEASE SEE SPEECH PATHOLOGIST REPORT FOR OTHER FINDINGS AND RECOMMENDATIONS. Assessment & Plan - Diagnosis (1) Atrial fibrillation with rapid ventricular response Is this a current diagnosis for this admission?: Yes (2) COPD (chronic obstructive pulmonary disease) Qualifiers: COPD type: COPD with acute lower respiratory infection Qualified Code(s): J44.0 - Chronic obstructive pulmonary disease with (acute) lower respiratory infection Is this a current diagnosis for this admission?: Yes (3) Recurrent right pleural effusion Is this a current diagnosis for this admission?: Yes - Time Anticipated Discharge Disposition: as per PCP Anticipated Discharge Timeframe: as per PCP - Plan Summary Plan Summary: A/ S/p placement of R chest tube R chest tube accidently removed by patient today no complications reported P/ Stat Chest ray Remove chest tube dressing in 2 weeks I will sign off. Please, call me with questions
[2020-06-24] MEDS ORDERED: DIPHENHYDRAMINE HCL 25 MG CAPSULE PO PRN (19:17)
--- NOTE | 2020-06-24 20:47 | RADIOLOGY REPORT (SQ) ---
EXAM DESCRIPTION: XR CHEST 1 VIEW COMPLETED DATE/TME: 06/24/2020 00:00 CLINICAL HISTORY: 75 years, Male, s/p removl right chest tube EXAM DESCRIPTION: CLINICAL HISTORY: s/p removl right chest tube COMPARISON: June 20, 2020 FINDINGS: Single view of the chest is submitted. Cardiac silhouette is again enlarged. Sternotomy wires are present. Consolidation is worsening of the right lung base with mild pulmonary edema. Right small to moderate pleural effusion is again seen. Left lung is clear. Postsurgical changes are present. IMPRESSION: Worsening right lung consolidation.
[2020-06-24] MEDS: RINGERS SOLUTION,LACTATED 1,000 ML IV PRN (22:28)
[2020-06-25] MEDS: IPRATROPIUM/ALBUTEROL 0.5-2.5 MG/3 ML AMPUL NEB SCH ×6 (00:57→19:55)
[2020-06-25] MEDS: DULOXETINE HCL 30 MG CAPSULE.DR PO SCH ×3 (05:32→21:45)
[2020-06-25] MEDS: PANTOPRAZOLE SODIUM 40 MG TABLET.DR PO SCH (05:32)
[2020-06-25] MEDS: MEROPENEM 1 GM in NORMAL SALINE 50 ML IV SCH ×2 (05:32→13:08)
[2020-06-25] MEDS: MORPHINE SULFATE 10 MG/ML INJ IV PRN ×2 (08:31→21:44)
[2020-06-25] MEDS ORDERED: METHYLPREDNISOLONE INJ 40 MG/1 ML SDV IV SCH (10:00)
[2020-06-25 10:12] LABS: BLOOD UREA NITROGEN 46 mg/dL (7-20); CALCIUM 8.4 mg/dL (8.4-10.2); CARBON DIOXIDE 34 mmol/L (22-30); CHLORIDE 107 mmol/L (98-107); GLUCOSE 92 mg/dL (75-110); POTASSIUM 5.1 mmol/L (3.6-5.0)
[2020-06-25 10:14] LABS: ANION GAP 1 (5-19)
[2020-06-25] MEDS: METOPROLOL SUCCINATE 50 MG TAB.SR.24H PO SCH ×2 (10:59→21:45)
[2020-06-25] MEDS: GUAIFENESIN 600 MG TABLET.SA PO SCH ×2 (11:00→21:45)
[2020-06-25] MEDS: ENOXAPARIN SODIUM INJ 80 MG/0.8 ML DISP.SYRIN SUBCUT SCH ×2 (11:00→21:55)
--- NOTE | 2020-06-25 12:57 | RADIOLOGY REPORT (SQ) ---
EXAM DESCRIPTION: CT CHEST WITHOUT IMAGES COMPLETED DATE/TIME: 06/25/2020 12:25 pm REASON FOR STUDY: follow up drainage from chest tube COMPARISON: 06/18/2020 TECHNIQUE: CT scan performed of the chest without intravenous contrast. Images reviewed with lung, soft tissue and bone windows. Reconstructed coronal and sagittal MPR images reviewed. All images st ored on PACS. All CT scanners at this facility use dose modulation, iterative reconstruction, and/or weight based d osing when appropriate to reduce radiation dose to as low as reasonably achievable (ALARA). [facility]: Dose Right [facility]: CareDose [facility]: Dose Right [facility]: Teradose 4D [facility]: Smart Fontacto RADIATION DOSE: CT Rad equipment meets quality standard of care and radiation dose reduction techniq ues were employed. CTDIvol: 14.8 mGy. DLP: 638 mGy-cm. mGy. LIMITATIONS: No technical limitations. FINDINGS: LUNGS AND PLEURA: Re- demonstration of dense consolidation involving predominantly the rig ht pulmonary lobes; this appears mildly improved in the study interval, noting the persistent appeara nce of small pleural effusions. Trace left upper lobe and left lower lobe tree-in-bud opacities pers ist. No new focal consolidation. No pneumothorax. HILAR AND MEDIASTINAL STRUCTURES: Scattered mediastinal lymph nodes appear similar in size and distri bution relative to comparison imaging. HEART AND VASCULAR STRUCTURES: Cardiomegaly without pericardial effusion. Dense atherosclerotic vasc ular calcifications to include three-vessel coronary artery disease. Stable postprocedural changes. UPPER ABDOMEN: No significant findings. Limited exam. THYROID AND OTHER SOFT TISSUES: No masses. No adenopathy. BONES: No significant finding. HARDWARE: Midline surgical changes. Partially imaged epidural neural stimulator leads. OTHER: No other significant findings. IMPRESSION: Minimally improved appearance of multi lobar pneumonia. No evidence of adverse trend. Stable chronic and incidental findings as detailed above. TECHNICAL DOCUMENTATION: JOB ID: [id number] Quality ID # [id number]: Final reports with documentation of one or more dose reduction techniques (e.g., Au tomated exposure control, adjustment of the mA and/or kV according to patient size, use of iterative reconstruction technique) 2010 [employer]- All Rights Reserved Reading location - IP/workstation name: [email or web address]
--- NOTE | 2020-06-25 16:44 | PDOC PROGRESS REPORT ---
Subjective Subjective:: Patient admitted for acute respiratory failure, pneumonia, chronic A. fib with acute RVR. Transferred out of ICU overnight 06/17. Patient was previously on a diltiazem and Precedex drip which were discontinued prior to transfer. Patient became acutely agitated frequently and heart rate ronni to the 140s to 120s sustained. Haldol helped with agitation momentarily but did not have a sustained effect. Ativan made agitation worse. Respiratory failure worsened as well and patient was started on BiPAP. He began pulling his BiPAP off and desaturating and was put in restraints. Heart rate briefly improved with IV me toprolol, unfortunately patient unable to take oral rate control meds while using BiPAP. Cardiology consulted. Critical care consulted to reevaluate the patient. CT scan of chest done which showed some pleural effusion possibly loculated pneumonia on the right. Radiology consulted for chest tube and fluid analysis labs were ordered along with cultures. General surgery consulted and the case was discussed with them in a stated they would like IR to perform chest tube and they would manage the chest tube thereafter. Patient cannot articulate any complaints due to agitation and using BiPAP. Troponin was positive x2 but flat, blood cultures negative, BNP up to 4000, COVID negative, sodium a bit lower at 131. 06/19/2020 Patient is waxing and waning with his clinical stability. One moment he is breathing well and somewhat alert, the next moment he is requiring BiPAP and appears very unstable as though he may need emergent intubation. This was discussed with Dr. Crocker in ICU yesterday and he would like the patient to remain on the floor for now. Also discussed case with Dr. Gerard in cardiology who agrees patient looks extremely ill at times. BP has been running low and I have discontinued the unnecessary BP meds he was sent to the ICU with. Hemoglobin is a bit lower but there are no signs of acute bleeding. Thoracentesis/chest tube has been ordered today and 100 cc of yellow fluid were removed and sent for analysis and culture. Suspect this will significantly improve the patient's respiratory status. Antibiotics have been broadened to meropenem. Blood cultures remain negative. He is still significantly tachycardic and at times showing V. tach per Dr. Gerard who is started the patient on amiodarone drip assuming BP will allow it. Patient cannot articulate any complaints today. 06/20/2020 Patient seems to have stabilized somewhat today after having his chest tube placed yesterday. Since yesterday, he has had approximately 1600 cc of mostly clear yellow fluid output. I discussed case with general surgeon Dr. Velazquez today and he is agreed to help us manage the chest tube as previous surgeon had signed off without evaluating it. Patient may need a larger chest tube if this currently small chest tube does not provide adequate drainage. I discussed the case with cardiology who will keep the patient on amiodarone drip in the short- term. Patient is a bit tired today and cannot articulate any specific complaints. 06/21/2020 Output from right-sided chest tube has slowed from yesterday but still has decent output. General surgery is following to help us decide if the patient will need a larger chest tube or if the current one can be pulled in the near future. Clinically, the patient is significantly improved and is actually speaking a bit today requesting putting. WBC is going down and his pleural fluid Gram stain and culture are negative so far. Speech therapy is evaluating the patient and will have a modified barium swallow tomorrow. Other than severe generalized fatigue the patient has no new complaints today. 06/22/2020 Patient continues to be gradually more alert and talkative. Speech therapy is working with him and we are trying to give him thin pudding to hopefully help retrain and strengthen his swallowing muscles. We will try to avoid an NG tube or PEG tube if we are able to do so. He is now only requiring 2 L nasal cannula which is a large improvement from when he came into the ICU. Respiratory culture and pleural effusion cultures are both negative. Labs are reviewed and relatively stable. Patient has no new complaints today. Chest tube seems to be draining less and less yellow fluid. General surgery planning to remove the chest tube plan and is putting out less than 150 cc in 24 hours. Lasix has been stopped, IV fluids given for clinical dehydration. 06/23/2020 Patient still alert today and tolerating some pudding from time to time along with his crushed medications. I long discussion with his sister who came to visit him and answered many of her questions and also gave very detailed account of his clinical course thus far and our plan going forward. I think he would be best served by a nursing facility at discharge and she is in agreement with this and would like to speak with the pillowcase folder about different facilities that might be an option for him. He is currently maintained on 4 L nasal cannula we will be weaning this is possible. Blood cultures negative and pleural effusion cultures negative. Cytology of pleural fluid was negative for malignancy but did show acute inflammation. The sister states that he has these recurrent right pleural effusions of unknown etiology. This is presumably from acute CHF likely from worsening of his A. fib. Alternatively, his A. fib could be causing his pleural effusion from resultant CHF. Patient has no new complaints today. General surgery may remove his chest tube tomorrow if it is putting out less than 150 cc/day. 06/24/2020 Chest tube seems to have had a large decline in its output, probably much less than 150 cc and it may qualify for removal based on the surgery team's guideline for removal. Patient has a great deal of therapy needed had of him if he is to make a recovery. Fortunately, he seems to be very motivated to be active and get out of bed, although I discussed with him that he must have a lot of assistance if he is to get up and move around. Apparently, patient's family member who visited yesterday was very angry that the nurses have been giving her updates and when I gave her an update it was essentially the same information that the nurses were giving her. I answered all of her questions to the best my ability and went to great detail explaining the patient's clinical course and the plan going forward. She actually was very appreciative and thanked me multiple times throughout the conversation for my care. The staff here is always available to answer any questions family may have with regard to the patient's care and I made sure that family member was aware of this patient has no new complaints today. 06/25/2020 Chest x-ray was read as showing worsening lung disease so I followed this up with a chest CT. Chest CT was actually read as showing notable improvement. Patient inadvertently pulled out his chest tube yesterday and general surgery has chosen to leave it out. Patient's bilateral pleural effusions are still present on imaging and some of the findings are concerning for possible recurrent aspiration or some other inflammatory process. Tested for rheumatoid factor and this is normal. Fungal culture from pleural fluid is still pending but all other cultures have been negative. ICU had the patient on steroids for several days I am currently tapering these off gradually. We will switch to oral prednisone tomorrow. We will need speech therapy to reevaluate the patient this week and determine if he is progressing with his swallowing ability. As we suspect a lot of his lung disease has to do with recurrent aspiration, if he is unable to correct his poor swallowing ability, he and his family may be faced with a decision to to place a feeding tube in his abdomen or consider hospice and comfort care. I am this decision will probably rest squarely on his family 's shoulders as he is unlikely to be capable of understanding or making a decision at this point. Reason For Visit: PNEUMONIA, ATRIAL FIBRILLATION WITH RAPID Physical Exam Vital Signs: Temp Pulse Resp BP Pulse Ox 97.6 F 65 16 90/60 L 97 06/25/20 11:15 06/25/20 14:00 06/25/20 12:35 06/25/20 13:20 06/25/20 12:35 Intake & Output 06/24/20 06/25/20 06/26/20 06:59 06:59 06:59 Intake Total 1936 2086 Output Total 800 750 Balance 1136 1336 Weight 71.9 kg 75.6 kg Exam: General appearance: PRESENT: no acute distress, well-developed, well-nourished, chronically ill-appearing, states he does not remember pulling out his chest tube Head exam: PRESENT: atraumatic, normocephalic Eye exam: PRESENT: conjunctiva pink Mouth exam: PRESENT: moist Respiratory exam: PRESENT: Mild right-sided crackles, rales, rhonchi ABSENT: wheezes Cardiovascular exam: PRESENT: irregular rhythm, tachycardia. ABSENT: diastolic murmur, systolic murmur GI/Abdominal exam: PRESENT: normal bowel sounds, soft. ABSENT: distended, guarding, mass, organolmegaly, rebound, tenderness Neurological exam: PRESENT: alert, awake. ABSENT: oriented to person, oriented to place, oriented to time, oriented to situation Psychiatric exam: PRESENT: Calm Skin exam: PRESENT: dry, intact, warm, chest tube in right thorax draining relatively clear yellow fluid Results Laboratory Results: 06/23/20 04:36 06/25/20 09:45 06/25/20 09:45 Sodium 142.0 Potassium 5.1 H Chloride 107 Carbon Dioxide 34 H Anion Gap 1 L BUN 46 H Creatinine 0.78 Est GFR ( Amer) > 60 Glucose 92 Calcium 8.4 06/16/20 06/16/20 06/16/20 09:10 09:10 14:10 Creatine Kinase 63 Troponin I 0.096 0.083 NT-Pro-B Natriuret Pep 06/16/20 06/17/20 06/17/20 18:27 02:34 06:28 Creatine Kinase Troponin I 0.064 0.067 NT-Pro-B Natriuret Pep 4080 H Impressions: Head CT 06/19/20 00:00 IMPRESSION: No acute intracranial hemorrhage, mass, or evidence of acute territorial infarct. Mild chronic small vessel ischemic change. Intracranial atherosclerosis. EVIDENCE OF ACUTE STROKE: NO. Thoracentesis Ultrasound 06/19/20 00:00 IMPRESSION: SUCCESSFUL RIGHT THORACENTESIS AND CHEST TUBE PLACEMENT USING ULTRASOUND GUIDANCE. Modified Barium Swallow 06/22/20 00:01 IMPRESSION: LARYNGEAL PENETRATION AND TRACHEAL ASPIRATION OF THIN LIQUIDS. PLEASE SEE SPEECH PATHOLOGIST REPORT FOR OTHER FINDINGS AND RECOMMENDATIONS. Chest X-Ray 06/24/20 00:00 IMPRESSION: Worsening right lung consolidation. Chest CT 06/25/20 00:00 IMPRESSION: Minimally improved appearance of multi lobar pneumonia. No evidence of adverse trend. Stable chronic and incidental findings as detailed a mckayla. Assessment and Plan - Diagnosis (1) Pneumonia involving right lung Qualifiers: Pneumonia type: due to unspecified organism Lung location: unspecified part of lung Qualified Code(s): J18.9 - Pneumonia, unspecified organism Is this a current diagnosis for this admission?: Yes (2) Atrial fibrillation with rapid ventricular response Is this a current diagnosis for this admission?: Yes Plan: Gradually restart p.o. rate control meds as able IV as needed metoprolol for heart rate greater than 110 bpm Cardiology consult: Case discussed with them multiple times, amiodarone drip started by them Echocardiogram showed EF 35% with moderate to severe global hypokinesis of the left ventricle with reduced systolic function Occasional V. tach noted on telemetry per cardiology, started on amiodarone drip as BP allows Cardiology recommended gentle IV fluids stating patient looks severely dehydrated, started LR at 75 cc/h 06/23/2020 Amiodarone drip stopped by cardiology, heart rate remained stable off of this and only on oral medications 06/24/2020 Cardiology following Oral rate control medications continued, cardiology considering adding aspirin 06/25/2020 Fully anticoagulated with Lovenox twice daily, if we can avoid the need for further chest tube placement or other procedures, we can transition him to a direct oral anticoagulant such as Eliquis Cardiac meds continued, tolerated well, rate controlled (3) COPD (chronic obstructive pulmonary disease) Qualifiers: COPD type: COPD with acute lower respiratory infection Qualified Code(s): J44.0 - Chronic obstructive pulmonary disease with (acute) lower respiratory infection Is this a current diagnosis for this admission?: Yes Plan: Intermittently severe in setting of pneumonia Inhalers Bronchial hygiene Started on methylprednisolone in ICU Duo nebs PRN Steroid taper (4) Acute metabolic encephalopathy Is this a current diagnosis for this admission?: Yes Plan: Due to pneumonia and respiratory failure Treat underlying causes As needed Haldol Suspect likely underlying dementia or at least mild cognitive impairment (5) Recurrent right pleural effusion Is this a current diagnosis for this admission?: Yes (6) Coronary artery disease Qualifiers: Coronary Disease-Associated Artery/Lesion type: [place] artery Is this a current diagnosis for this admission?: Yes Plan: No chest pain, stable - Time Time Spent with patient: 25-34 minutes Medications reviewed and adjusted accordingly: Yes Anticipated Discharge Disposition: Senior Living Facility Anticipated Discharge Timeframe: within 72 hours - Inpatient Certification Based on my medical assessment, after consideration of the patient's comor bidities, presenting symptoms, or acuity I expect that the services needed warrant INPATIENT care.: Yes I certify that my determination is in accordance with my understanding of Medicare's requirements for reasonable and necessary INPATIENT services [42 CFR 412.3e].: Yes Medical Necessity: Significant Comorbidiites Make Outpatient Treatment Too Risky, Need Close Monitoring Due to Risk of Patient Decompensation, Risk of Complication if Not Cared For in Hospital, Risk of Diagnosis Which Will Require Inpatient Eval/Care/Monitoring
[2020-06-25] MEDS ORDERED: NORMAL SALINE 1000 ML 1,000 ML IV ONE (20:30)
[2020-06-25] MEDS: HALOPERIDOL LACTATE INJ 5 MG/1 ML VIAL IV PRN (22:19)
[2020-06-26] MEDS: MORPHINE SULFATE 10 MG/ML INJ IV PRN ×5 (00:19→20:00)
[2020-06-26] MEDS: IPRATROPIUM/ALBUTEROL 0.5-2.5 MG/3 ML AMPUL NEB SCH ×5 (01:37→16:31)
[2020-06-26] MEDS: DULOXETINE HCL 30 MG CAPSULE.DR PO SCH ×3 (06:36→22:28)
[2020-06-26] MEDS: PANTOPRAZOLE SODIUM 40 MG TABLET.DR PO SCH (06:36)
[2020-06-26] MEDS: ENOXAPARIN SODIUM INJ 80 MG/0.8 ML DISP.SYRIN SUBCUT SCH ×2 (09:42→21:06)
--- NOTE | 2020-06-26 09:45 | PDOC PROGRESS REPORT ---
Subjective Progress Note for:: 06/26/20 Subjective:: Patient was seen and examined this morning. Physical therapy was in the room with him. Patient was expressing significant fatigue and discomfort with pain along the left side of the torso as well as both legs. He does not report any other complaints. His breathing seems to be better. Reason For Visit: PNEUMONIA, ATRIAL FIBRILLATION WITH RAPID Physical Exam Vital Signs: Temp Pulse Resp BP Pulse Ox 97.3 F 74 15 88/65 L 100 06/26/20 08:33 06/26/20 09:06 06/26/20 09:06 06/26/20 07:37 06/26/20 09:06 Intake & Output 06/25/20 06/26/20 06/27/20 06:59 06:59 06:59 Intake Total 2086 1268 Output Total 750 950 Balance 1336 318 Weight 75.6 kg 75.7 kg General appearance: PRESENT: mild distress, well-developed, well-nourished Head exam: PRESENT: atraumatic, normocephalic Eye exam: PRESENT: conjunctiva pink, EOMI Mouth exam: PRESENT: moist Respiratory exam: PRESENT: decreased breath sounds, prolonged expiratory phas, rales, symmetrical Cardiovascular exam: PRESENT: RRR, +S1, +S2 Pulses: PRESENT: normal radial pulses GI/Abdominal exam: PRESENT: soft Rectal exam: PRESENT: deferred Neurological exam: PRESENT: alert, awake, oriented to person, oriented to place, oriented to time, oriented to situation Psychiatric exam: PRESENT: appropriate affect Skin exam: PRESENT: dry, intact Results Laboratory Results: 06/23/20 04:36 06/25/20 09:45 06/25/20 09:45 Sodium 142.0 Potassium 5.1 H Chloride 107 Carbon Dioxide 34 H Anion Gap 1 L BUN 46 H Creatinine 0.78 Est GFR ( Amer) > 60 Glucose 92 Calcium 8.4 06/16/20 06/16/20 06/16/20 09:10 09:10 14:10 Creatine Kinase 63 Troponin I 0.096 0.083 NT-Pro-B Natriuret Pep 06/16/20 06/17/20 06/17/20 18:27 02:34 06:28 Creatine Kinase Troponin I 0.064 0.067 NT-Pro-B Natriuret Pep 4080 H EKG Comments: Twelve-lead EKG 06/23/2020 Atrial fibrillation with ventricular rate 80 bpm. Transthoracic echocardiogram 06/20/2020 Left ventricular ejection fraction is estimated at 35% Aortic stenosis with mean gradient of 11 mmHg. No aortic regurgitation. Mild mitral regurgitation. There is no pericardial effusion. Upper normal PA pressure Telemetry reviewed today shows probable atrial fibrillation at 78 bpm. Impressions: Head CT 06/19/20 00:00 IMPRESSION: No acute intracranial hemorrhage, mass, or evidence of acute territorial infarct. Mild chronic small vessel ischemic change. Intracranial atherosclerosis. EVIDENCE OF ACUTE STROKE: NO. Thoracentesis Ultrasound 06/19/20 00:00 IMPRESSION: SUCCESSFUL RIGHT THORACENTESIS AND CHEST TUBE PLACEMENT USING ULTRASOUND GUIDANCE. Modified Barium Swallow 06/22/20 00:01 IMPRESSION: LARYNGEAL PENETRATION AND TRACHEAL ASPIRATION OF THIN LIQUIDS. PLEASE SEE SPEECH PATHOLOGIST REPORT FOR OTHER FINDINGS AND RECOMMENDATIONS. Chest X-Ray 06/24/20 00:00 IMPRESSION: Worsening right lung consolidation. Chest CT 06/25/20 00:00 IMPRESSION: Minimally improved appearance of multi lobar pneumonia. No evidence of adverse trend. Stable chronic and incidental findings as detailed above. Assessment & Plan - Diagnosis (1) Atrial fibrillation with rapid ventricular response Is this a current diagnosis for this admission?: Yes Plan: Continue enoxaparin weight-based milligram per kilogram subcu every 12 for prophylaxis from stroke given atrial fibrillation Continue metoprolol for rate control (2) Pleural effusion Is this a current diagnosis for this admission?: Yes Plan: Being monitored by surgery Chest tubes been removed Pain on probably the chest wall on account of recent surgery and chest tube placement. (3) Pneumonia Qualifiers: Pneumonia type: due to unspecified organism Laterality: right Lung location: lower lobe of lung Qualified Code(s): J18.9 - Pneumonia, unspecified organism Is this a current diagnosis for this admission?: Yes Plan: Complicated by pleural effusion Antibiotics as indicated Surgery following for pleural effusions. CT chest showed improvement. (4) Coronary artery disease Qualifiers: Coronary Disease-Associated Artery/Lesion type: [place] artery Is this a current diagnosis for this admission?: Yes Plan: Coronary artery disease Details are not very clear No ischemic symptoms at the moment Suboptimal medical therapy due to concurrent illness Beta-tutu has been started We will consider OLAF based on blood pressure improvement Aspirin also is indicated ideally Consider statin (5) CHF (congestive heart failure), NYHA class II Qualifiers: Congestive heart failure type: systolic Congestive heart failure chronicity: chronic Qualified Code(s): I50.22 - Chronic systolic (congestive) heart failure Is this a current diagnosis for this admission?: Yes Plan: Chronic systolic congestive heart failure with LV dysfunction with ejection fraction estimated around 35% Continue beta-tutu Consider OLAF inhibitor Appears euvolemic
[2020-06-26] MEDS: METOPROLOL SUCCINATE 50 MG TAB.SR.24H PO SCH ×2 (09:50→22:28)
[2020-06-26] MEDS: GUAIFENESIN 600 MG TABLET.SA PO SCH ×2 (09:50→22:28)
[2020-06-26] MEDS ORDERED: PREDNISONE 20 MG TABLET PO SCH (10:00)
[2020-06-26 10:25] LABS: BLOOD UREA NITROGEN 42 mg/dL (7-20); CALCIUM 8.5 mg/dL (8.4-10.2); GLUCOSE 80 mg/dL (75-110)
[2020-06-26 10:31] LABS: CARBON DIOXIDE 30 mmol/L (22-30); CHLORIDE 108 mmol/L (98-107)
[2020-06-26 10:36] LABS: ANION GAP 2 (5-19)
--- NOTE | 2020-06-26 11:32 | PDOC PROGRESS REPORT ---
Subjective Progress Note for:: 06/26/20 Subjective:: Patient admitted for acute respiratory failure, pneumonia, chronic A. fib with acute RVR. Transferred out of ICU overnight 06/17. Patient was previously on a diltiazem and Precedex drip which were discontinued prior to transfer. Patient became acutely agitated frequently and heart rate ronni to the 140s to 120s sustained. Haldol helped with agitation momentarily but did not have a sustained effect. Ativan made agitation worse. Respiratory failure worsened as well and patient was started on BiPAP. He began pulling his BiPAP off and desaturating and was put in restraints. Heart rate briefly improved with IV metoprolol, unfortunately patient unable to take oral rate control meds while using BiPAP. Cardiology consulted. Critical care consulted to reevaluate the patient. CT scan of chest done which showed some pleural effusion possibly loculated pneumonia on the right. Radiology consulted for chest tube and fluid analysis labs were ordered along with cultures. General surgery consulted and the case was discussed with them in a stated they would like IR to perform chest tube and they would manage the chest tube thereafter. Patient cannot articulate any complaints due to agitation and using BiPAP. Troponin was positive x2 but flat, blood cultures negative, BNP up to 4000, COVID negative, sodium a bit lower at 131. 06/19/2020 Patient is waxing and waning with his clinical stability. One moment he is breathing well and somewhat alert, the next moment he is requiring BiPAP and appears very unstable as though he may need emergent intubation. This was discussed with Dr. Crocker in ICU yesterday and he would like the patient to remain on the floor for now. Also discussed case with Dr. Gerard in cardiology who agrees patient looks extremely ill at times. BP has been running low and I have discontinued the unnecessary BP meds he was sent to the ICU with. Hemoglobin is a bit lower but there are no signs of acute bleeding. Thoracentesis/chest tube has been ordered today and 100 cc of yellow fluid were removed and sent for analysis and culture. Suspect this will significantly improve the patient's respiratory status. Antibiotics have been broadened to meropenem. Blood cultures remain negative. He is still significantly tachycardic and at times showing V. tach per Dr. Gerard who is started the patient on amiodarone drip assuming BP will allow it. Patient cannot articulate any complaints today. 06/20/2020 Patient seems to have stabilized somewhat today after having his chest tube placed yesterday. Since yesterday, he has had approximately 1600 cc of mostly clear yellow fluid output. I discussed case with general surgeon Dr. Velazquez today and he is agreed to help us manage the chest tube as previous surgeon had signed off without evaluating it. Patient may need a larger chest tube if this currently small chest tube does not provide adequate drainage. I discussed the case with cardiology who will keep the patient on amiodarone drip in the short- term. Patient is a bit tired today and cannot articulate any specific complaints. 06/21/2020 Output from right-sided chest tube has slowed from yesterday but still has decent output. General surgery is following to help us decide if the patient will need a larger chest tube or if the current one can be pulled in the near future. Clinically, the patient is significantly improved and is actually speaking a bit today requesting putting. WBC is going down and his pleural fluid Gram stain and culture are negative so far. Speech therapy is evaluating the patient and will have a modified barium swallow tomorrow. Other than severe generalized fatigue the patient has no new complaints today. 06/22/2020 Patient continues to be gradually more alert and talkative. Speech therapy is working with him and we are trying to give him thin pudding to hopefully help retrain and strengthen his swallowing muscles. We will try to avoid an NG tube or PEG tube if we are able to do so. He is now only requiring 2 L nasal cannula which is a large improvement from when he came into the ICU. Respiratory culture and pleural effusion cultures are both negative. Labs are reviewed and relatively stable. Patient has no new complaints today. Chest tube seems to be draining less and less yellow fluid. General surgery planning to remove the chest tube plan and is putting out less than 150 cc in 24 hours. Lasix has been stopped, IV fluids given for clinical dehydration. 06/23/2020 Patient still alert today and tolerating some pudding from time to time along with his crushed medications. I long discussion with his sister who came to visit him and answered many of her questions and also gave very detailed account of his clinical course thus far and our plan going forward. I think he would be best served by a nursing facility at discharge and she is in agreement with this and would like to speak with the telephonic case manager about different facilities that might be an option for him. He is currently maintained on 4 L nasal cannula we will be weaning this is possible. Blood cultures negative and pleural effusion cultures negative. Cytology of pleural fluid was negative for malignancy but did show acute inflammation. The sister states that he has these recurrent right pleural effusions of unknown etiology. This is presumably from acute CHF likely from worsening of his A. fib. Alternatively, his A. fib could be causing his pleural effusion from resultant CHF. Patient has no new complaints today. General surgery may remove his chest tube tomorrow if it is putting out less than 150 cc/day. 06/24/2020 Chest tube seems to have had a large decline in its output, probably much less than 150 cc and it may qualify for removal based on the surgery team's guideline for removal. Patient has a great deal of therapy needed had of him if he is to make a recovery. Fortunately, he seems to be very motivated to be active and get out of bed, although I discussed with him that he must have a lot of assistance if he is to get up and move around. Apparently, patient's family member who visited yesterday was very angry that the nurses have been giving her updates and when I gave her an update it was essentially the same information that the nurses were giving her. I answered all of her questions to the best my ability and went to great detail explaining the patient's clinical course and the plan going forward. She actually was very appreciative and thanked me multiple times throughout the conversation for my care. The staff here is always available to answer any questions family may have with regard to the patient's care and I made sure that family member was aware of this patient has no new complaints today. 06/25/2020 Chest x-ray was read as showing worsening lung disease so I followed this up with a chest CT. Chest CT was actually read as showing notable improvement. Patient inadvertently pulled out his chest tube yesterday and general surgery has chosen to leave it out. Patient's bilateral pleural effusions are still present on imaging and some of the findings are concerning for possible recurrent aspiration or some other inflammatory process. Tested for rheumatoid factor and this is normal. Fungal culture from pleural fluid is still pending but all other cultures have been negative. ICU had the patient on steroids for several days I am currently tapering these off gradually. We will switch to oral prednisone tomorrow. We will need speech therapy to reevaluate the patient this week and determine if he is progressing with his swallowing ability. As we suspect a lot of his lung disease has to do with recurrent aspiration, if he is unable to correct his poor swallowing ability, he and his family may be faced with a decision to to place a feeding tube in his abdomen or consider hospice and comfort care. I am this decision will probably rest squarely on his family's shoulders as he is unlikely to be capable of understanding or making a decision at this point. 06/26/2020-patient is not communicative this morning. Looks drowsy or sleepy at this time. No acute events in the last 24 hours. Cardiology on board. Fungal cultures from the pleural fluid is pending. Reason For Visit: PNEUMONIA, ATRIAL FIBRILLATION WITH RAPID Physical Exam Vital Signs: Temp Pulse Resp BP Pulse Ox 97.3 F 74 15 88/65 L 100 06/26/20 08:33 06/26/20 09:06 06/26/20 09:06 06/26/20 07:37 06/26/20 09:06 Intake & Output 06/25/20 06/26/20 06/27/20 06:59 06:59 06:59 Intake Total 2086 1268 Output Total 750 950 Balance 1336 318 Weight 75.6 kg 75.7 kg General appearance: PRESENT: no acute distress, thin Head exam: PRESENT: atraumatic Eye exam: PRESENT: PERRLA Teeth exam: PRESENT: poor dentation Neck exam: ABSENT: carotid bruit, JVD, lymphadenopathy, thyromegaly Respiratory exam: PRESENT: decreased breath sounds Cardiovascular exam: PRESENT: irregular rhythm, systolic murmur GI/Abdominal exam: PRESENT: normal bowel sounds, soft. ABSENT: distended, guarding, mass, organolmegaly, rebound, tenderness Rectal exam: PRESENT: deferred Extremities exam: PRESENT: full ROM. ABSENT: calf tenderness, clubbing, pedal edema Neurological exam: PRESENT: CN II-XII grossly intact, other - Not communicative looks drowsy and sleepy. But not in distress. Results Laboratory Results: 06/23/20 04:36 06/26/20 09:40 06/26/20 09:40 Sodium 139.7 Potassium 5.0 Chloride 108 H Carbon Dioxide 30 Anion Gap 2 L BUN 42 H Creatinine 0.71 Est GFR ( Amer) > 60 Glucose 80 Calcium 8.5 06/16/20 06/16/20 06/16/20 09:10 09:10 14:10 Creatine Kinase 63 Troponin I 0.096 0.083 NT-Pro-B Natriuret Pep 06/16/20 06/17/20 06/17/20 18:27 02:34 06:28 Creatine Kinase Troponin I 0.064 0.067 NT-Pro-B Natriuret Pep 4080 H Impressions: Head CT 06/19/20 00:00 IMPRESSION: No acute intracranial hemorrhage, mass, or evidence of acute territorial infarct. Mild chronic small vessel ischemic change. Intracranial atherosclerosis. EVIDENCE OF ACUTE STROKE: NO. Thoracentesis Ultrasound 06/19/20 00:00 IMPRESSION: SUCCESSFUL RIGHT THORACENTESIS AND CHEST TUBE PLACEMENT USING ULTRASOUND GUIDANCE. Modified Barium Swallow 06/22/20 00:01 IMPRESSION: LARYNGEAL PENETRATION AND TRACHEAL ASPIRATION OF THIN LIQUIDS. PLEASE SEE SPEECH PATHOLOGIST REPORT FOR OTHER FINDINGS AND RECOMMENDATIONS. Chest X-Ray 06/24/20 00:00 IMPRESSION: Worsening right lung consolidation. Chest CT 06/25/20 00:00 IMPRESSION: Minimally improved appearance of multi lobar pneumonia. No evidence of adverse trend. Stable chronic and incidental findings as detailed above. Assessment and Plan - Diagnosis (1) Pneumonia involving right lung Qualifiers: Pneumonia type: due to unspecified organism Lung location: unspecified part of lung Qualified Code(s): J18.9 - Pneumonia, unspecified organism Is this a current diagnosis for this admission?: Yes Plan: CT chest showed extensive pneumonia involving right lung with parapneumonic effusion IR consulted for chest tube placement, done on 06/19 Pleural fluid sent for chemistry analysis and bacterial cultures and fungal cultures, follow-up results General surgery consulted for chest tube management, discussed with them and they have agreed to follow along Broaden antibiotics to meropenem Respiratory culture pending Blood cultures negative 06/20/2020 Continued on meropenem General surgery consulted again for tube management as the previous physician and signed off without evaluating the tube, Dr. Velazquez has agreed to follow with us today. 1600 cc of yellow fluid out since placement 06/21/2020 Broaden antibiotics continued Pleural fluid Gram stain is negative, culture pending Fluid output from chest tube has slowed although breathing has improved along with this, possible we have drained the majority of the fluid out now 06/22/2020 Notably less output from chest tube compared to when it was first placed. Per surgery, will plan to pull chest tube when it is putting out less than 150 cc per 24 hours Antibiotics continue Blood, sputum, and pleural fluid cultures negative so far 06/23/2020 May attempt pull chest tube tomorrow if putting out small amount of fluid Cultures all negative so far and pleural effusion cytology negative for malignancy, only showed inflammation 06/24/2020 Chest tube seems to be putting out approximately 75 cc since yesterday assuming this is a correct volume in the fluid collection system next of the bed. Per nursing, chest tube was leaking quite a bit of fluid onto the bed overnight. We will leave it to surgery to decide if they want to remove the chest tube. 06/26/2020-chest tube accidentally came out yesterday. Afebrile. Not on antibiotics at this time. Fungal cultures from the pleural fluid is pending. (2) Atrial fibrillation with rapid ventricular response Is this a current diagnosis for this admission?: Yes Plan: Gradually restart p.o. rate control meds as able IV as needed metoprolol for heart rate greater than 110 bpm Cardiology consult: Case discussed with them multiple times, amiodarone drip started by them Echocardiogram showed EF 35% with moderate to severe global hypokinesis of the left ventricle with reduced systolic function Occasional V. tach noted on telemetry per cardiology, started on amiodarone drip as BP allows Cardiology recommended gentle IV fluids stating patient looks severely dehydrated, started LR at 75 cc/h 06/23/2020 Amiodarone drip stopped by cardiology, heart rate remained stable off of this and only on oral medications 06/24/2020 Cardiology following Oral rate control medications continued, cardiology considering adding aspirin 06/25/2020 Fully anticoagulated with Lovenox twice daily, if we can avoid the need for further chest tube placement or other procedures, we can transition him to a direct oral anticoagulant such as Eliquis Cardiac meds continued, tolerated well, rate controlled 06/26/2020-cardiology is following the patient for A. fib with RVR. On full dose of Lovenox. Patient is also receiving Lovenox at this time. As per cardiology recommendations to continue metoprolol for heart rate control. (3) CHF (congestive heart failure), NYHA class II Qualifiers: Congestive heart failure type: systolic Congestive heart failure chronicity: chronic Qualified Code(s): I50.22 - Chronic systolic (congestive) heart failure Is this a current diagnosis for this admission?: Yes Plan: 06/26/2020-patient has history of systolic heart failure admitted with chronic systolic heart failure with LV dysfunction and EF is around 35%. As per cardiology recommendations to continue beta-tutu and OLAF inhibitor at the time. (4) Pleural effusion Is this a current diagnosis for this admission?: Yes Plan: Full (5) COPD (chronic obstructive pulmonary disease) Qualifiers: COPD type: COPD with acute lower respiratory infection Qualified Code(s): J44.0 - Chronic obstructive pulmonary disease with (acute) lower respiratory infection Is this a current diagnosis for this admission?: No Plan: Intermittently severe in setting of pneumonia Inhalers Bronchial hygiene Started on methylprednisolone in ICU Duo nebs PRN Steroid taper Patient has a history of COPD pulse ox is 96% on 3 L. To decrease the prednisone to 20 mg p.o. daily. To continue with other management including DuoNeb nebs. (6) Acute metabolic encephalopathy Is this a current diagnosis for this admission?: Yes Plan: Due to pneumonia and respiratory failure Treat underlying causes As needed Haldol Suspect likely underlying dementia or at least mild cognitive impairment Pain 05/20/2020-patient looks drowsy and lethargic this morning. Most likely due to underlying pneumonia and respiratory failure. Patient may have underlying dementia. (7) Recurrent right pleural effusion Is this a current diagnosis for this admission?: Yes - Time Anticipated Discharge Disposition: Half-Way Facility Anticipated Discharge Timeframe: within 72 hours
[2020-06-27] MEDS: MORPHINE SULFATE 10 MG/ML INJ IV PRN ×5 (05:41→21:13)
[2020-06-27] MEDS: DULOXETINE HCL 30 MG CAPSULE.DR PO SCH ×3 (05:42→21:13)
[2020-06-27] MEDS: PANTOPRAZOLE SODIUM 40 MG TABLET.DR PO SCH (05:42)
[2020-06-27 07:05] LABS: HEMATOCRIT 28.9 % (37.9-51.0); HEMOGLOBIN 9.7 g/dL (13.5-17.0); MEAN CORPUSCULAR HEMOGLOBIN 28.3 pg (27.0-33.4); MEAN CORPUSCULAR HGB CONC 33.5 g/dL (32.0-36.0); MEAN CORPUSCULAR VOLUME 85 fl (80-97); RED BLOOD COUNT 3.42 10^6/uL (4.35-5.55); RED CELL DISTRIBUTION WIDTH 16.5 % (11.5-14.0); WHITE BLOOD COUNT 5.9 10^3/uL (4.0-10.5)
[2020-06-27 07:55] LABS: PLATELET COUNT 98 10^3/uL (150-450)
[2020-06-27 07:57] LABS: ABSOLUTE LYMPHOCYTES# (MANUAL) 0.4 10^3/uL (0.5-4.7); BASOPHILS % (MANUAL) 0 % (0-2); EOSINOPHILS % (MANUAL) 0 % (0-6); LYMPHOCYTES % (MANUAL) 6 % (13-45); MONOCYTES % (MANUAL) 0 % (3-13); SEGMENTED NEUTROPHILS % (MAN) 94 % (42-78); TOTAL CELLS COUNTED 100
[2020-06-27 07:59] LABS: ANISOCYTOSIS SLIGHT; OVALOCYTES SLIGHT; PLATELET COMMENT DECREASED; POIKILOCYTOSIS SLIGHT; SCHISTOCYTES SLIGHT; TOXIC GRANULATION SLIGHT
[2020-06-27 08:01] LABS: ALBUMIN 1.9 g/dL (3.5-5.0); ALKALINE PHOSPHATASE 73 U/L (38-126); ASPARTATE AMINO TRANSFERASE 32 U/L (17-59); BILIRUBIN,DIRECT 0.6 mg/dL (0.0-0.4); BILIRUBIN,TOTAL 1.6 mg/dL (0.2-1.3); BLOOD UREA NITROGEN 44 mg/dL (7-20); CALCIUM 8.4 mg/dL (8.4-10.2); CARBON DIOXIDE 27 mmol/L (22-30); GLUCOSE 77 mg/dL (75-110); POTASSIUM 5.4 mmol/L (3.6-5.0); TOTAL PROTEIN 4.4 g/dL (6.3-8.2)
[2020-06-27 08:16] LABS: CHLORIDE 108 mmol/L (98-107)
[2020-06-27 08:19] LABS: ANION GAP 2 (5-19)
[2020-06-27] MEDS: PREDNISONE 20 MG TABLET PO SCH (09:22)
[2020-06-27] MEDS: ENOXAPARIN SODIUM INJ 80 MG/0.8 ML DISP.SYRIN SUBCUT SCH ×2 (09:23→21:17)
[2020-06-27] MEDS: METOPROLOL SUCCINATE 50 MG TAB.SR.24H PO SCH ×2 (09:23→21:13)
[2020-06-27] MEDS: GUAIFENESIN 600 MG TABLET.SA PO SCH ×2 (09:23→21:13)
--- NOTE | 2020-06-27 12:36 | PDOC TRANSFER SUMMARY ---
Impression - Admit/DC Date/PCP Admission Date/Primary Care Provider: 06/16/20 10:18 TRENA RICKS MD Discharge Date: 06/27/20 - Discharge Diagnosis (1) Pneumonia involving right lung Is this a current diagnosis for this admission?: Yes (2) Atrial fibrillation with rapid ventricular response Is this a current diagnosis for this admission?: Yes (3) CHF (congestive heart failure), NYHA class II Is this a current diagnosis for this admission?: Yes (4) Pleural effusion Is this a current diagnosis for this admission?: Yes (5) COPD (chronic obstructive pulmonary disease) Is this a current diagnosis for this admission?: No (6) Acute metabolic encephalopathy Is this a current diagnosis for this admission?: Yes (7) Recurrent right pleural effusion Is this a current diagnosis for this admission?: Yes - Assessment Summary: (1) Pneumonia involving right lung Qualifiers: Pneumonia type: due to unspecified organism Lung location: unspecified part of lung Qualified Code(s): J18.9 - Pneumonia, unspecified organism Is this a current diagnosis for this admission?: Yes Plan: CT chest showed extensive pneumonia involving right lung with parapneumonic effusion IR consulted for chest tube placement, done on 06/19 Pleural fluid sent for chemistry analysis and bacterial cultures and fungal cultures, follow-up results General surgery consulted for chest tube management, discussed with them and they have agreed to follow along Broaden antibiotics to meropenem Respiratory culture pending Blood cultures negative 06/20/2020 Continued on meropenem General surgery consulted again for tube management as the previous physician and signed off without evaluating the tube, Dr. Velazquez has agreed to follow with us today. 1600 cc of yellow fluid out since placement 06/21/2020 Broaden antibiotics continued Pleural fluid Gram stain is negative, culture pending Fluid output from chest tube has slowed although breathing has improved along with this, possible we have drained the majority of the fluid out now 06/22/2020 Notably less output from chest tube compared to when it was first placed. Per surgery, will plan to pull chest tube when it is putting out less than 150 cc per 24 hours Antibiotics continue Blood, sputum, and pleural fluid cultures negative so far 06/23/2020 May attempt pull chest tube tomorrow if putting out small amount of fluid Cultures all negative so far and pleural effusion cytology negative for malignancy, only showed inflammation 06/24/2020 Chest tube seems to be putting out approximately 75 cc since yesterday assuming this is a correct volume in the fluid collection system next of the bed. Per nursing, chest tube was leaking quite a bit of fluid onto the bed overnight. We will leave it to surgery to decide if they want to remove the chest tube. 06/26/2020-chest tube accidentally came out yesterday. Afebrile. Not on antibiotics at this time. Fungal cultures from the pleural fluid is pending. 06/27/2020-patient is without chest tube. Fungus culture from the pleural fluid is negative. Comfortably in the bed resting. Pulse ox is 98% on 2 L. Bilateral entry was decreased no wheezing no crepitations. Patient is not on antibiotics at this time. (2) Atrial fibrillation with rapid ventricular response Is this a current diagnosis for this admission?: Yes Plan: Gradually restart p.o. rate control meds as able IV as needed metoprolol for heart rate greater than 110 bpm Cardiology consult: Case discussed with them multiple times, amiodarone drip started by them Echocardiogram showed EF 35% with moderate to severe global hypokinesis of the left ventricle with reduced systolic function Occasional V. tach noted on telemetry per cardiology, started on amiodarone drip as BP allows Cardiology recommended gentle IV fluids stating patient looks severely dehydrated, started LR at 75 cc/h 06/23/2020 Amiodarone drip stopped by cardiology, heart rate remained stable off of this and only on oral medications 06/24/2020 Cardiology following Oral rate control medications continued, cardiology considering adding aspirin 06/25/2020 Fully anticoagulated with Lovenox twice daily, if we can avoid the need for further chest tube placement or other procedures, we can transition him to a direct oral anticoagulant such as Eliquis Cardiac meds continued, tolerated well, rate controlled 06/26/2020-cardiology is following the patient for A. fib with RVR. On full dose of Lovenox. Patient is also receiving Lovenox at this time. As per cardiology recommendations to continue metoprolol for heart rate control. 06/27/2020-on examination heart is in the 60s. Rate controlled A. fib. To continue metoprolol at the nursing facility. As per cardiology recommendations to place him on Eliquis 5 mg p.o. twice daily. (3) CHF (congestive heart failure), NYHA class II Qualifiers: Congestive heart failure type: systolic Congestive heart failure chronicity: chronic Qualified Code(s): I50.22 - Chronic systolic (congestive) heart failure Is this a current diagnosis for this admission?: Yes Plan: 06/26/2020-patient has history of systolic heart failure admitted with chronic systolic heart failure with LV dysfunction and EF is around 35%. As per cardiology recommendations to continue beta-tutu and OLAF inhibitor at the time. 06/27/2020-patient has history of chronic systolic heart failure EF is around 35%. To continue beta-tutu and OLAF inhibitor at the long-term. (4) Pleural effusion Is this a current diagnosis for this admission?: Yes Plan: Full (5) COPD (chronic obstructive pulmonary disease) Qualifiers: COPD type: COPD with acute lower respiratory infection Qualified Code(s): J44.0 - Chronic obstructive pulmonary disease with (acute) lower respiratory infection Is this a current diagnosis for this admission?: No Plan: Intermittently severe in setting of pneumonia Inhalers Bronchial hygiene Started on methylprednisolone in ICU Duo nebs PRN Steroid taper Patient has a history of COPD pulse ox is 96% on 3 L. To decrease the prednisone to 20 mg p.o. daily. To continue with other management including DuoNeb nebs. 06/27/2020-2 discontinue prednisone from today. To continue nebulizations at long-term. (6) Acute metabolic encephalopathy Is this a current diagnosis for this admission?: Yes Plan: Due to pneumonia and respiratory failure Treat underlying causes As needed Haldol Suspect likely underlying dementia or at least mild cognitive impairment Pain 05/20/2020-patient looks drowsy and lethargic this morning. Most likely due to underlying pneumonia and respiratory failure. Patient may have underlying dementia. 06/27/2020-acute metabolic encephalopathy is multifactorial. Patient also might have underlying dementia. Mental status is stable at this time. (7) Recurrent right pleural effusion Is this a current diagnosis for this admission?: Yes - Additional Information Resuscitation Status: Full Code Discharge Diet: Cardiac Discharge Activity: Activity As Tolerated Referrals: TRENA RICKS MD [Primary Care Provider] - Follow up as needed Home Medications: Albuterol Sulfate [Proair HFA Inhalation Aerosol 8.5 gm MDI] 1 puff IH Q4HP PRN 06/16/20 Alfuzosin HCl [Alfuzosin HCl ER] 10 mg PO DAILY 06/16/20 Cetirizine HCl [Zyrtec 10 mg Tablet] 10 mg PO DAILY 06/16/20 Diltiazem HCl [Cardizem Cd 240 mg Capsule.cr] 1 cap.sr PO DAILY 06/16/20 Duloxetine HCl [Cymbalta] 30 mg PO DAILY 06/16/20 Fluticasone/Salmeterol [Advair 100-50 Diskus 14 Dose/Diskus] 1 inh IH Q12 06/16/20 Furosemide [Lasix 20 mg Tablet] 20 mg PO DAILY 06/16/20 Hydralazine HCl [Apresoline 50 mg Tablet] 50 mg PO BID 06/16/20 Pantoprazole Sodium [Protonix [address] Tablet] 40 mg PO DAILY 06/16/20 History of Present Illiness History of Present Illness: OUSMANE HOWELL is a 75 year old male 75 yo male who has been ill for several weeks now. He has had dyspnea which has been increasing for at least the past week.He has a cough productive of yellow-green sputum. He has a long cardiac history. he s/p CABG, [place] procedure, clipping of fhte left atrial appendage and AVR. Apparently, he has had reaccumulating fluid in his right chest which has necssitated recurrent thoracenteses (3) thelast of kyrie was in 04/[address] [facility]. When he presented to the ED today he was quite tachypneic and using accessory resp. mm. On 6 liters 02 his 02 sat was about 88-90%. He couldf not speak in full sentences. He was placed on BIPAP. CXR showed a massive right sided infiltrate involving mainly the RLL. I saw the patient in the ED and decided to admit himdirectly to the ICU. I thought he was atrisk for further deteriration and eventual intubation. Hospital Course Hospital Course: Patient admitted for acute respiratory failure, pneumonia, chronic A. fib with acute RVR. Transferred out of ICU overnight 06/17. Patient was previously on a diltiazem and Precedex drip which were discontinued prior to transfer. Patient became acutely agitated frequently and heart rate ronni to the 140s to 120s sustained. Haldol helped with agitation momentarily but did not have a sustained effect. Ativan made agitation worse. Respiratory failure worsened as well and patient was started on BiPAP. He began pulling his BiPAP off and desaturating and was put in restraints. Heart rate briefly improved with IV metoprolol, unfortunately patient unable to take oral rate control meds while using BiPAP. Cardiology consulted. Critical care consulted to reevaluate the patient. CT scan of chest done which showed some pleural effusion possibly loculated pneumonia on the right. Radiology consulted for chest tube and fluid analysis labs were ordered along with cultures. General surgery consulted and the case was discussed with them in a stated they would like IR to perform chest tube and they would manage the chest tube thereafter. Patient cannot articulate any complaints due to agitation and using BiPAP. Troponin was positive x2 but flat, blood cultures negative, BNP up to 4000, COVID negative, sodium a bit lower at 131. 06/19/2020 Patient is waxing and waning with his clinical stability. One moment he is breathing well and somewhat alert, the next moment he is requiring BiPAP and appears very unstable as though he may need emergent intubation. This was discussed with Dr. Crcoker in ICU yesterday and he would like the patient to remain on the floor for now. Also discussed case with Dr. Gerard in cardiology who agrees patient looks extremely ill at times. BP has been running low and I have discontinued the unnecessary BP meds he was sent to the ICU with. Hemoglobin is a bit lower but there are no signs of acute bleeding. Thoracentesis/chest tube has been ordered today and 100 cc of yellow fluid were removed and sent for analysis and culture. Suspect this will significantly improve the patient's respiratory status. Antibiotics have been broadened to meropenem. Blood cultures remain negative. He is still significantly tachycardic and at times showing V. tach per Dr. Gerard who is started the patient on amiodarone drip assuming BP will allow it. Patient cannot articulate any complaints today. 06/20/2020 Patient seems to have stabilized somewhat today after having his chest tube placed yesterday. Since yesterday, he has had approximately 1600 cc of mostly clear yellow fluid output. I discussed case with general surgeon Dr. Velazquez today and he is agreed to help us manage the chest tube as previous surgeon had signed off without evaluating it. Patient may need a larger chest tube if this currently small chest tube does not provide adequate drainage. I discussed the case with cardiology who will keep the patient on amiodarone drip in the short- term. Patient is a bit tired today and cannot articulate any specific complaints. 06/21/2020 Output from right-sided chest tube has slowed from yesterday but still has decent output. General surgery is following to help us decide if the patient will need a larger chest tube or if the current one can be pulled in the near future. Clinically, the patient is significantly improved and is actually speaking a bit today requesting putting. WBC is going down and his pleural fluid Gram stain and culture are negative so far. Speech therapy is evaluating the patient and will have a modified barium swallow tomorrow. Other than severe generalized fatigue the patient has no new complaints today. 06/22/2020 Patient continues to be gradually more alert and talkative. Speech therapy is working with him and we are trying to give him thin pudding to hopefully help retrain and strengthen his swallowing muscles. We will try to avoid an NG tube or PEG tube if we are able to do so. He is now only requiring 2 L nasal cannula which is a large improvement from when he came into the ICU. Respiratory culture and pleural effusion cultures are both negative. Labs are reviewed and relatively stable. Patient has no new complaints today. Chest tube seems to be draining less and less yellow fluid. General surgery planning to remove the chest tube plan and is putting out less than 150 cc in 24 hours. Lasix has been stopped, IV fluids given for clinical dehydration. 06/23/2020 Patient still alert today and tolerating some pudding from time to time along with his crushed medications. I long discussion with his sister who came to visit him and answered many of her questions and also gave very detailed account of his clinical course thus far and our plan going forward. I think he would be best served by a nursing facility at discharge and she is in agreement with this and would like to speak with the machine adjuster leader case trim about different facilities that might be an option for him. He is currently maintained on 4 L nasal cannula we will be weaning this is possible. Blood cultures negative and pleural effusion cultures negative. Cytology of pleural fluid was negative for malignancy but did show acute inflammation. The sister states that he has these recurrent right pleural effusions of unknown etiology. This is presumably from acute CHF likely from worsening of his A. fib. Alternatively, his A. fib could be causing his pleural effusion from resultant CHF. Patient has no new complaints today. General surgery may remove his chest tube tomorrow if it is putting out less than 150 cc/day. 06/24/2020 Chest tube seems to have had a large decline in its output, probably much less than 150 cc and it may qualify for removal based on the surgery team's guideline for removal. Patient has a great deal of therapy needed had of him if he is to make a recovery. Fortunately, he seems to be very motivated to be active and get out of bed, although I discussed with him that he must have a lot of assistance if he is to get up and move around. Apparently, patient's family member who visited yesterday was very angry that the nurses have been giving her updates and when I gave her an update it was essentially the same information that the nurses were giving her. I answered all of her questions to the best my ability and went to great detail explaining the patient's clinical course and the plan going forward. She actually was very appreciative and thanked me multiple times throughout the conversation for my care. The staff here is always available to answer any questions family may have with regard to the patient's care and I made sure that family member was aware of this patient has no new complaints today. 06/25/2020 Chest x-ray was read as showing worsening lung disease so I followed this up with a chest CT. Chest CT was actually read as showing notable improvement. Patient inadvertently pulled out his chest tube yesterday and general surgery has chosen to leave it out. Patient's bilateral pleural effusions are still present on imaging and some of the findings are concerning for possible recurrent aspiration or some other inflammatory process. Tested for rheumatoid factor and this is normal. Fungal culture from pleural fluid is still pending but all other cultures have been negative. ICU had the patient on steroids for several days I am currently tapering these off gradually. We will switch to oral prednisone tomorrow. We will need speech therapy to reevaluate the patient this week and determine if he is progressing with his swallowing ability. As we suspect a lot of his lung disease has to do with recurrent aspiration, if he is unable to correct his poor swallowing ability, he and his family may be faced with a decision to to place a feeding tube in his abdomen or consider hospice and comfort care. I am this decision will probably rest squarely on his family's shoulders as he is unlikely to be capable of understanding or making a decision at this point. 06/26/2020-patient is not communicative this morning. Looks drowsy or sleepy at this time. No acute events in the last 24 hours. Cardiology on board. Fungal cultures from the pleural fluid is pending. 06/27/2020-patient is comfortable in the bed not in distress. Not communicating well. Vital signs are stable. Afebrile. Not on antibiotics at this time. In my opinion patient is stable to go to the long-term facility today. Pleural fluid culture come back negative for fungal growth. Physical Exam Vital Signs: Temp Pulse Resp BP Pulse Ox 97.4 F 100 18 119/62 94 06/27/20 09:00 06/27/20 07:57 06/27/20 07:57 06/27/20 07:57 06/27/20 07:57 Intake & Output 06/26/20 06/27/20 06/28/20 06:59 06:59 06:59 Intake Total 1268 30 Output Total 950 1225 Balance 318 -1195 Weight 75.7 kg 73.6 kg General appearance: PRESENT: no acute distress, cooperative, disheveled Head exam: PRESENT: atraumatic Eye exam: PRESENT: conjunctiva pale, PERRLA Ear exam: PRESENT: normal external ear exam Mouth exam: PRESENT: moist, tongue midline Neck exam: ABSENT: carotid bruit, JVD, lymphadenopathy, thyromegaly Respiratory exam: PRESENT: decreased breath sounds Cardiovascular exam: PRESENT: irregular rhythm, systolic murmur GI/Abdominal exam: PRESENT: normal bowel sounds, soft. ABSENT: distended, guarding, mass, organolmegaly, rebound, tenderness Rectal exam: PRESENT: deferred Extremities exam: PRESENT: full ROM. ABSENT: calf tenderness, clubbing, pedal edema Neurological exam: PRESENT: awake, CN II-XII grossly intact Psychiatric exam: PRESENT: appropriate affect, normal mood. ABSENT: homicidal ideation, suicidal ideation Results Laboratory Results: WBC 5.9 10^3/uL (4.0-10.5) 06/27/20 06:08 RBC 3.42 10^6/uL (4.35-5.55) L 06/27/20 06:08 Hgb 9.7 g/dL (13.5-17.0) L 06/27/20 06:08 Hct 28.9 % (37.9-51.0) L 06/27/20 06:08 MCV 85 fl (80-97) 06/27/20 06:08 MCH 28.3 pg (27.0-33.4) 06/27/20 06:08 MCHC 33.5 g/dL (32.0-36.0) 06/27/20 06:08 RDW 16.5 % (11.5-14.0) H 06/27/20 06:08 Plt Count 98 10^3/uL (150-450) L 06/27/20 06:08 Lymph % (Auto) Not Reportable 06/27/20 06:08 [place] % (Auto) Not Reportable 06/27/20 06:08 Eos % (Auto) Not Reportable 06/27/20 06:08 Baso % (Auto) Not Reportable 06/27/20 06:08 Absolute Neuts (auto) Not Reportable 06/27/20 06:08 Absolute Lymphs (auto) Not Reportable 06/27/20 06:08 Absolute Monos (auto) Not Reportable 06/27/20 06:08 Absolute Eos (auto) Not Reportable 06/27/20 06:08 Absolute Basos (auto) Not Reportable 06/27/20 06:08 Total Counted 100 06/27/20 06:08 Seg Neutrophils % Not Reportable 06/27/20 06:08 Seg Neuts % (Manual) 94 % (42-78) H 06/27/20 06:08 Band Neutrophils % 2 % (3-5) L 06/22/20 05:57 Lymphocytes % (Manual) 6 % (13-45) L 06/27/20 06:08 Monocytes % (Manual) 0 % (3-13) L 06/27/20 06:08 Eosinophils % (Manual) 0 % (0-6) 06/27/20 06:08 Basophils % (Manual) 0 % (0-2) 06/27/20 06:08 Abs Neuts (Manual) 5.5 10^3/uL (1.7-8.2) 06/27/20 06:08 Abs Lymphs (Manual) 0.4 10^3/uL (0.5-4.7) L 06/27/20 06:08 Abs Monocytes (Manual) 0.0 10^3/uL (0.1-1.4) L 06/27/20 06:08 Absolute Eos (Manual) 0.0 10^3/uL (0.0-0.6) 06/27/20 06:08 Abs Basophils (Manual) 0.0 10^3/uL (0.0-0.2) 06/27/20 06:08 Toxic Granulation SLIGHT 06/27/20 06:08 Large Platelets PRESENT 06/19/20 05:30 Platelet Comment DECREASED 06/27/20 06:08 Polychromasia SLIGHT 06/19/20 05:30 Hypochromasia SLIGHT 06/19/20 05:30 Poikilocytosis SLIGHT 06/27/20 06:08 Anisocytosis SLIGHT 06/27/20 06:08 Ovalocytes SLIGHT 06/27/20 06:08 [place] Cells 1+ 06/17/20 06:28 Schistocytes SLIGHT 06/27/20 06:08 PT 16.6 SEC (11.4-15.4) H 06/19/20 13:25 INR 1.32 06/19/20 13:25 APTT 51.3 SEC (23.5-35.8) H 06/19/20 13:25 Carbonic Acid 1.21 mmol/L (1.05-1.35) 06/18/20 09:03 HCO3/H2CO3 Ratio 18:1 06/18/20 09:03 ABG pH 7.36 (7.35-7.45) 06/18/20 09:03 ABG pCO2 40.2 mmHg (35-45) 06/18/20 09:03 ABG pO2 59.5 mmHg (80-100) L 06/18/20 09:03 ABG HCO3 21.9 mmol/L (20-24) 06/18/20 09:03 ABG Total CO2 23.2 mmol/L (23-27) 06/18/20 09:03 ABG O2 Saturation 89.8 % (94-98) L 06/18/20 09:03 ABG Base Excess -3.3 mmol/L 06/18/20 09:03 VBG pH 7.42 (7.30-7.42) 06/16/20 09:00 VBG pCO2 40.8 mmHg (35-63) 06/16/20 09:00 VBG HCO3 26.1 mmol/L (20-32) 06/16/20 09:00 VBG Base Excess 1.6 mmol/L 06/16/20 09:00 FiO2 6L 06/18/20 09:03 Sodium 137.2 mmol/L (137-145) 06/27/20 06:08 Potassium 5.4 mmol/L (3.6-5.0) H 06/27/20 06:08 Chloride 108 mmol/L (98-107) H 06/27/20 06:08 Carbon Dioxide 27 mmol/L (22-30) 06/27/20 06:08 Anion Gap 2 (5-19) L 06/27/20 06:08 BUN 44 mg/dL (7-20) H 06/27/20 06:08 Creatinine 0.63 mg/dL (0.52-1.25) 06/27/20 06:08 Est GFR ( Amer) > 60 (>60) 06/27/20 06:08 Est GFR (MDRD) Non-Af > 60 (>60) 06/27/20 06:08 Glucose 77 mg/dL (75-110) 06/27/20 06:08 POC Glucose 113 mg/dL (70-110) H 06/27/20 11:50 Lactic Acid 2.3 mmol/L (0.7-2.1) H 06/16/20 09:00 Calcium 8.4 mg/dL (8.4-10.2) 06/27/20 06:08 Magnesium 2.0 mg/dL (1.6-2.3) 06/27/20 06:08 Ferritin 494.00 ng/mL (17.9-464.0) H 06/16/20 09:10 Total Bilirubin 1.6 mg/dL (0.2-1.3) H 06/27/20 06:08 Direct Bilirubin 0.6 mg/dL (0.0-0.4) H 06/27/20 06:08 Neonat Total Bilirubin Not Reportable 06/27/20 06:08 Neonat Direct Bilirubin Not Reportable 06/27/20 06:08 Neonat Indirect Bili Not Reportable 06/27/20 06:08 AST 32 U/L (17-59) 06/27/20 06:08 ALT 26 U/L (<50) 06/27/20 06:08 Alkaline Phosphatase 73 U/L (38-126) 06/27/20 06:08 Lactate Dehydrogenase 235 U/L (120-246) 06/18/20 16:27 Creatine Kinase 63 U/L (55-170) 06/16/20 09:10 Troponin I 0.067 ng/mL 06/17/20 02:34 NT-Pro-B Natriuret Pep 4080 pg/mL (<125) H 06/17/20 06:28 Total Protein 4.4 g/dL (6.3-8.2) L 06/27/20 06:08 Albumin 1.9 g/dL (3.5-5.0) L 06/27/20 06:08 Triglycerides 112 mg/dL (<150) 06/17/20 06:28 Cholesterol 51.72 mg/dL (0-200) 06/17/20 06:28 LDL Cholesterol Direct < 30 mg/dL (<100) 06/17/20 06:28 VLDL Cholesterol 22.0 mg/dL (10-31) 06/17/20 06:28 HDL Cholesterol 9 mg/dL (>40) L 06/17/20 06:28 TSH 0.45 uIU/mL (0.47-4.68) L 06/17/20 06:28 Urine Color CANDELARIO 06/16/20 14:25 Urine Appearance CLOUDY 06/16/20 14:25 Urine pH 5.0 (5.0-9.0) 06/16/20 14:25 Ur Specific [place] 1.019 06/16/20 14:25 Urine Protein 100 mg/dL (NEGATIVE) H 06/16/20 14:25 Urine Glucose (UA) NEGATIVE mg/dL (NEGATIVE) 06/16/20 14:25 Urine Ketones NEGATIVE mg/dL (NEGATIVE) 06/16/20 14:25 Urine Blood SMALL (NEGATIVE) H 06/16/20 14:25 Urine Nitrite NEGATIVE (NEGATIVE) 06/16/20 14:25 Urine Bilirubin NEGATIVE (NEGATIVE) 06/16/20 14:25 Urine Urobilinogen 2.0 mg/dL (<2.0) H 06/16/20 14:25 Ur Leukocyte Esterase NEGATIVE (NEGATIVE) 06/16/20 14:25 Urine WBC (Auto) 3 /HPF 06/16/20 14:25 Urine RBC (Auto) 1 /HPF 06/16/20 14:25 Squamous Epi Cells Auto 1 /HPF 06/16/20 14:25 Urine Mucus (Auto) RARE /LPF 06/16/20 14:25 Urine Ascorbic Acid NEGATIVE (NEGATIVE) 06/16/20 14:25 Fluid Type PLEURAL 06/19/20 14:25 Fluid Source LUNG 06/19/20 14:25 Fluid Color YELLOW 06/19/20 14:25 Fluid Appearance SLIGHTLY HAZY 06/19/20 14:25 Fluid Viscosity LIQUID 06/19/20 14:25 Fluid WBC 380 /uL 06/19/20 14:25 Fluid RBC 1235 /uL 06/19/20 14:25 Fluid Seg Neutrophils 82 % 06/19/20 14:25 Fluid Lymphocytes 15 % 06/19/20 14:25 Fluid Monocytes 2 % 06/19/20 14:25 Fluid Eosinophils 1 % 06/19/20 14:25 Fluid Basophils 0 % 06/19/20 14:25 Fluid Total Protein 2.5 g/dL (.) 06/19/20 14:25 Fluid LDH 279 IU/L (.) 06/19/20 14:25 Fluid Amylase 69 U/L (.) 06/19/20 14:25 Rheumatoid Factor < 8.6 IU/mL (<12.0) 06/25/20 09:45 COVID-19 Source NASOPHARYNGEAL 06/16/20 10:00 COVID-19 (GERONIMO) NOT DETECTED 06/16/20 10:00 06/16/20 06/16/20 06/16/20 09:10 14:10 18:27 Troponin I 0.096 0.083 0.064 NT-Pro-B Natriuret Pep 06/17/20 06/17/20 02:34 06:28 Troponin I 0.067 NT-Pro-B Natriuret Pep 4080 H Impressions: Chest X-Ray 06/16/20 08:56 IMPRESSION: Diffuse right-sided lung parenchymal consolidation with trace right pleural effusion. Findings are worrisome for pneumonia. Chest X-Ray 06/17/20 00:00 IMPRESSION: Progression of right lung volume loss and consolidation, increasing pleural effusion on the right Chest CT 06/18/20 09:00 IMPRESSION: 1. Multifocal airspace disease throughout the right hemithorax compatible with pneumonia. [id number] associated subpulmonic effusion. 2. Cardiomegaly and coronary atherosclerosis. Head CT 06/19/20 00:00 IMPRESSION: No acute intracranial hemorrhage, mass, or evidence of acute territorial infarct. Mild chronic small vessel ischemic change. Intracranial atherosclerosis. EVIDENCE OF ACUTE STROKE: NO. Thoracentesis Ultrasound 06/19/20 00:00 IMPRESSION: SUCCESSFUL RIGHT THORACENTESIS AND CHEST TUBE PLACEMENT USING ULTRASOUND GUIDANCE. Chest X-Ray 06/20/20 08:00 IMPRESSION: The degree of opacification in the inferior aspect of the right hemithorax has decreased after placement of a pleural drainage catheter. Modified Barium Swallow 06/22/20 00:01 IMPRESSION: LARYNGEAL PENETRATION AND TRACHEAL ASPIRATION OF THIN LIQUIDS. PLEASE SEE SPEECH PATHOLOGIST REPORT FOR OTHER FINDINGS AND RECOMMENDATIONS. Chest X-Ray 06/24/20 00:00 IMPRESSION: Worsening right lung consolidation. Chest CT 06/25/20 00:00 IMPRESSION: Minimally improved appearance of multi lobar pneumonia. No evidence of adverse trend. Stable chronic and incidental findings as detailed above. Plan Time Spent: Greater than 30 Minutes Stroke Is this a Stroke Patient?: No Acute Heart Failure - Is this a Heart Failure Patient?: No
--- NOTE | 2020-06-27 14:51 | RADIOLOGY REPORT (SQ) ---
EXAM DESCRIPTION: CT CHEST WITHOUT IMAGES COMPLETED DATE/TIME: 06/27/2020 1:29 pm REASON FOR STUDY: pneumonia COMPARISON: 06/25/2020 TECHNIQUE: CT scan performed of the chest without intravenous contrast. Images reviewed with lung, soft tissue and bone windows. Reconstructed coronal and sagittal MPR images reviewed. All images st ored on PACS. All CT scanners at this facility use dose modulation, iterative reconstruction, and/or weight based d osing when appropriate to reduce radiation dose to as low as reasonably achievable (ALARA). [facility]: Dose Right [facility]: CareDose [facility]: Dose Right [facility]: Teradose 4D [facility]: [employer] RADIATION DOSE: CT Rad equipment meets quality standard of care and radiation dose reduction techniq ues were employed. CTDIvol: 11.6 mGy. DLP: 515 mGy-cm. mGy. LIMITATIONS: No technical limitations. FINDINGS: LUNGS AND PLEURA: Significant opacification in the apex and medial aspect of the right upp er lobe. Mild anterior opacification the right middle lobe. Marked opacification in the right lower lobe. Right pleural effusion. HILAR AND MEDIASTINAL STRUCTURES: No identified masses or abnormal nodes. No obvious aneurysm. HEART AND VASCULAR STRUCTURES: No aneurysm. No pericardial effusion. UPPER ABDOMEN: No significant findings. Limited exam. THYROID AND OTHER SOFT TISSUES: No masses. No adenopathy. BONES: No significant finding. HARDWARE: Sternotomy wires. Atrial appendage clip. Neurostimulator electrodes. OTHER: No other significant findings. IMPRESSION: Persistent multicentric pneumonia in the right lung. No significant improvement. There is marked opacification the right lower lobe, consolidation versus atelectasis. Right pleural effus ion. TECHNICAL DOCUMENTATION: JOB ID: [id number] Quality ID # [id number]: Final reports with documentation of one or more dose reduction techniques (e.g., Au tomated exposure control, adjustment of the mA and/or kV according to patient size, use of iterative reconstruction technique) 2010 [employer]- All Rights Reserved Reading location - IP/workstation name: [email or web address]
[2020-06-27] MEDS: APIXABAN 5 MG TABLET PO SCH (17:34)
[2020-06-28] MEDS: MORPHINE SULFATE 10 MG/ML INJ IV PRN ×3 (01:20→11:45)
[2020-06-28] MEDS: DULOXETINE HCL 30 MG CAPSULE.DR PO SCH (05:50)
[2020-06-28] MEDS: PANTOPRAZOLE SODIUM 40 MG TABLET.DR PO SCH (05:50)
[2020-06-28] MEDS ORDERED: SODIUM POLYSTYRENE SULFONATE 15 GM/60 ML PO ONE (08:00)
[2020-06-28] MEDS: ENOXAPARIN SODIUM INJ 80 MG/0.8 ML DISP.SYRIN SUBCUT SCH (09:03)
[2020-06-28] MEDS: GUAIFENESIN 600 MG TABLET.SA PO SCH (09:04)
[2020-06-28] MEDS: PREDNISONE 20 MG TABLET PO SCH (09:04)
[2020-06-28] MEDS: METOPROLOL SUCCINATE 50 MG TAB.SR.24H PO SCH (09:04)
[2020-06-28] MEDS: APIXABAN 5 MG TABLET PO SCH (09:04)
[2020-06-28] MEDS ORDERED: LISINOPRIL 5 MG TABLET PO SCH (10:00)
[2020-06-28 12:38] VITALS: BP 120/56
--- NOTE | 2020-06-28 13:48 | RADIOLOGY REPORT (SQ) ---
EXAM DESCRIPTION: ARTERIAL LOWER EXTREM BILAT IMAGES COMPLETED DATE/TIME: 06/19/2020 5:14 pm REASON FOR STUDY: PVD/ischemia COMPARISON: None. TECHNIQUE: Dynamic and static turcios scale and color images acquired of the lower extremity arteries. Additional selected spectral images recorded. LIMITATIONS: None. FINDINGS: RIGHT LEG: Patent femoropopliteal bypass graft. Three-vessel runoff with monophasic waveforms. LEFT LEG: Monophasic waveforms in the common femoral artery consistent with more proximal obstruction. Proxima l femoral artery is occluded. Reconstituted flow in the popliteal artery with monophasic waveforms. Three-vessel runoff. IMPRESSION: Right: Patent femoropopliteal bypass graft. Three-vessel runoff. Left: Chronic occlusion of femoral artery. Reconstituted flow in the popliteal artery via collatera ls. Three-vessel runoff. TECHNICAL DOCUMENTATION: JOB ID: [id number] 2010 [employer]- All Rights Reserved Reading location - IP/workstation name: [email or web address]
== END 2020-06-28 13:15 | DRG 193 ==
LOC: ER 08:55 → EH 10:18 → ICU 12:09 → 3W 06-18 00:11
PROVIDERS: ADMIT Hospitalist; ATTEND Internal Medicine
PROC: 5A09557 Assistance with Respiratory Ventilation, Greater than 96 Consecutive Hours, Continuous Positive Airway Pressure (ICD-10-PCS; 2020-06-16)
PROC: 0W9930Z Drainage of Right Pleural Cavity with Drainage Device, Percutaneous Approach (ICD-10-PCS; principal; 2020-06-19)
DX: J18.9 Pneumonia, unspecified organism (principal); J96.01 Acute respiratory failure with hypoxia; G93.41 Metabolic encephalopathy; J44.0 Chronic obstructive pulmonary disease with (acute) lower respiratory infection; I50.22 Chronic systolic (congestive) heart failure; J91.8 Pleural effusion in other conditions classified elsewhere; I48.20 Chronic atrial fibrillation, unspecified; I25.10 Atherosclerotic heart disease of native coronary artery without angina pectoris; E78.5 Hyperlipidemia, unspecified; I73.9 Peripheral vascular disease, unspecified; I11.0 Hypertensive heart disease with heart failure; J44.9 Chronic obstructive pulmonary disease, unspecified; Z95.1 Presence of aortocoronary bypass graft; Z95.5 Presence of coronary angioplasty implant and graft; Z95.2 Presence of prosthetic heart valve; Z88.6 Allergy status to analgesic agent; Z20.828 Contact with and (suspected) exposure to other viral communicable diseases; E86.0 Dehydration; I35.0 Nonrheumatic aortic (valve) stenosis; F03.90 Unspecified dementia, unspecified severity, without behavioral disturbance, psychotic disturbance, mood disturbance, and anxiety; Z88.8 Allergy status to other drugs, medicaments and biological substances; Z87.891 Personal history of nicotine dependence; Z90.49 Acquired absence of other specified parts of digestive tract; Z79.51 Long term (current) use of inhaled steroids; Z79.899 Other long term (current) drug therapy; Z78.1 Physical restraint status
CPT/HCPCS: 32557; 36415; 36600; 70450; 71045; 71250; 74230; 80048; 80053; 80061; 81001; 82150; 82550; 82728; 82803; 82962; 83605; 83615; 83735; 83880; 84155; 84157; 84443; 84484; 85025; 85027; 85610; 85730; 86431; 87040; 87070; 87075; 87101; 87205; 87635; 88305; 88341; 88342; 89050; 93005; 93010; 93306; 93925; 94640; 94660; 94667; 94668; 96365; 96375; 99291; C1769; C1894; C9803; J0282; J1630; J1650; J1940; J1956; J2060; J2185; J2270; J2920; J3490; J7030; J7060; J7120; J7512